=== PATIENT | female | born 1975 | race Caucasian/White ===

== ENCOUNTER 2025-10-08 12:37 | Emergency (ER) | payer OTHER, SELFPAY ==
--- NOTE | ~2025-10-08 | XR_ITS ---
Examination: XR knee LT min 4V Clinical History: HIT IN PROX TIBIA, ANT AND POST PAIN Comparison: None Technique: 4 views right knee Findings/impression: 1. Probable enthesophyte or degenerative change anterior upper tibia but recommend correlation for point tenderness. 2. Otherwise no fracture, dislocation, or effusion right knee. Reviewed, dictated and finalized at location R. [employer]
[2025-10-08 12:45] VITALS: BP 151/80; PULSE 73; RESP 16; TEMP 36.5; O2SAT 100
--- OUTSIDE RECORDS SUMMARY | 2025-10-08 12:48 | XMS_ITS | Clinical Summary ---
Author Organization [facility] Address [address] [place] [address] Phone Care Team Providers Care Medical Accounting Clerk Name Role Phone JCARLOS NOLAN DO Rhona Primary Care Provider [phone] Reason for Visit and Chief Complaint The Chief Complaint is: PT C/O COUGH, SOB, DIFFICULTY BREATHING, MUSCLE/BODY ACHES, HEADACHE, SORE THROAT, VOMITING, RT EAR PAIN Problems Includes: Problems addressed during this encounter and other active Problems Current Visit Onset Date Resolved Date Provider Conditio n Status Pharyngitis Acute 12/22/2017 NICHOL MONTERROSO MD Inactive Last Documented On 9 8:56PM ; [facility] Pharyngitis Acute 08/10/2016 NICHOL MONTERROSO MD Inactive Last Documented On 8 7:39PM ; [facility] Asthma Severe Persistent with Exacerbation 04/25/2016 NICHOL MONTERROSO MD Active Last Documented On 6 1:02PM ; [facility] Past Visits Onset Date Resolved Date Provider Condition Status Chronic Kidney Disease Stage 3 06/10/2023 ELIO JOY [employer]C Active Last Documented On 3 4:43PM ; [facility] Hypokalemia 10/02/2022 MARCY RETANA PA-C A ctive Last Documented On 2 11:30PM ; [facility] Polycystic Kidney 03/15/2022 MARCY RETANA PA-C Active Last Documented On 2 5:32PM ; [facility] Essential Hypertension Benign 06/04/2018 NICHOL MONTERROSO MD Active Last Documented On 8 12:02PM ; [facility] Allergic Rhinitis 04/25/2016 NICHOL MONTERROSO MD Active Last Documented On 9 8:56PM ; [facility] Plan of Treatment Rapid COVID/FLu/Strep testing was negative. Discussed OTC medications as needed for symptoms. Follow up if symptoms worsen or do not improve. - Last Documented On 08/14/2023 3:51PM ; [facility] Assessments Includes: Assessments from this encounter Findings - Contact with and (Suspected) exposure to COVID-19 [Z20.822 - Contact with and (suspected) exposure to COVID-19] - Last Documented On 08/14/2023 3:51PM ; [facility] - Acute pharyngitis [J02.9 - Acute pharyngitis, unspecified] - Last Documented On 08/14/2023 3:51PM ; [facility] - Severe persistent asthma with exacerbation [J45.51 - Severe persistent asthma with (acute) exacerbation] - Last Documented On 08/14/2023 3:51PM ; [facility] Medical Equipment - Implanted Devices Includes: Current Devices No Medical Equipment Recorded Medications Includes: Medications discussed during this encounter and other current Medications New / Renewed during this visit CHEIKH ROSA on 08/14/2023 Azithromycin 250 MG Oral Tablet Provider: CHEIKH ROSA 5 day supply: 6 tablet, 0 refills Diagnosis: Severe persistent asthma with (acute) exacerbation as directed take 2 tab po qd for 1 day then take 1 tab po qd for 4 days Pharmacy: [facility] ([place]) - [address] [facility], [phone] - Last Documented On 3:54PM By Cheikh ROSA ; [facility] Medrol 4 MG Oral Tablet Therapy Pack Provider: CHEIKH ROSA 6 day supply: 21 tablet, 0 refills Diagnosis: Severe persistent asthma with (acute) exacerbation as directed Pharmacy: [facility] ([place]) - [address] [facility], [phone] - Last Documented On 3 3:54PM By Cheikh ROSA ; [facility] Current Medications (continue as prescribed) hydrOXYzine HCl 10 MG Oral Tablet 06/11/2023 Provide r: ELIO ROSA Diagnosis: One tablet daily Last Documented On 3 9:10AM By Elio ROSA ; [facility] Estarylla 0.25-35 MG-MCG Oral Tablet 06/11/2023 Provider: ELIO ROSA Diagnosis: Encounter for in itial prescription of contraceptive pills TAKE 1 TABLET BY MOUTH DAILY Last Documented On 3 9:10AM By Elio ROSA ; [facility] Montelukast Sodium 10 MG Oral Tablet 06/11/2023 Provider: ELIO ROSA Diagnosis: Severe persisten t asthma with (acute) exacerbation TAKE 1 TABLET BY MOUTH DAILY Last Documented On 3 9:10AM By Elio ROSA ; [facility] amLODIPine Besylate 10 MG Oral Tablet 06/11/2023 Provider: ELIO GAYTANC Diagnosis: Essential (prima ry) hypertension One tablet daily Last Documented On 3 9:10AM By Elio ROSA ; [facility] Trelegy Ellipta 100-62.5-25 MCG/ACT Inhalation Aerosol Powder Breath Activated 06/11/2023 Provider: ELIO Thomas [facility] PRACTITIONER-C Diagnosis: INHALE 1 PUFF BY MOUTH DAILY Last Documented On 3 6:49AM By Elio ROSA ; [facility] Fluticasone Propionate 50 MCG/ACT Nasal Suspension 06/11/2023 Provider: ELIO GAYTANC Diagnosis: Polycystic kidne y, unspecified 1 spray in each notril BID Last Documented On 3 9:10AM By Elio ROSA ; [facility] Biotin Plus Keratin 22586-761 MCG-MG Oral Tablet 06/10 Provider: Diagnosis: OTC Last Documented On 3 4:15PM By Elio ROSA ; [facility] Metoprolol Tartrate 25 MG Oral Tablet 06/10/2023 Provider: ELIO ROSA Diagnosis: Essential (prima ry) hypertension One tablet twice a day Last Documented On 3 4:49PM By Elio ROSA ; [facility] Potassium Chloride ER 20 MEQ Oral Tablet Extended Release 10/30/2022 Provider: MARCY Busby Diagnosis: Essential (prima ry) hypertension TAKE 1 TABLET BY MOUTH TWICE DAILY Last Documented On 2 8:20AM By Marcy Retana PA-C ; [facility] Albuterol Sulfate HFA 108 (90 Base) MCG/ACT Inhalation Aerosol Solution 10/01/2022 Provider: MARCY Busby Diagnosis: Severe persisten t asthma with (acute) exacerbation inhale 1-2 puffs every 4-6 h ours as needed Last Documented On 2 4:59PM By Marcy Retana PA-C ; [facility] [place] 3 1000 MG Oral Capsule 10/01/2022 Provider: Diagnosis: Last Documented On 10/01/2022 3:47PM By GLENN GEE ; [facility] Daily Value Multivitamin Oral Tablet 10/01/2022 Prov ider: Diagnosis: Last Documented On 10/01/2022 3:48PM By GLENN GEE ; [facility] Albuterol Sulfate (2.5 MG/3ML) 0.083% Inhalation Nebulization solution 04/08/2022 Provider: ELIO ROSA Diagnosis: Severe persisten t asthma with (acute) exacerbation USE 1 VIAL VIA NEBULIZER CHAYITO RY 4 HOURS NEEDED Last Documented On 2 8:14AM By Elio ROSA ; [facility] Medications Administered Includes: Administered Medications from this encounter No Administered Medications Recorded Vital Signs Includes: Vital Signs from this encounter Vital Name 08/14/2023 03:39P Blood Pressure Sitting L 142/106 BP Cuff Size Regular Pulse Rate-Sitting (bpm) 92 Respiration Rate (breaths/min) 21 Temp-Oral (F) 98.7 Height (in) 64 Weight (lb) 130.8 Body Mass Index 22.5 Body Surface Area 1.6 Oxygen Saturation (%) 98 Last Documented: On 08/14/2023 3:40PM ; [facility] Results Includes: Results discussed during this encounter Group A strep [facility] Ordered by CHEIKH Roca [facility] on 1 Collected: Reported: 08/14/2023 15:41 Last Documented On 3 3:43PM ; [facility] Reviewed on 08/14/2023; All test results are final unless otherwise noted. Rapid Strep NEG N (Normal) Last Documented On 3 3:42PM ; [facility] LOT # AND EXP. DATE [id number] 11/12/25 N (Normal) Last Documented On 3 3:42PM ; [facility] INT. QC ACCEPTABLE? YES N (Normal) Last Documented On 3 3:42PM ; [facility] SARS COVID-19 FLU A & B [facility] Ordered by CHEIKH Roca [facility] on 1 Collected: Reported: 08/14/2023 15:42 Last Documented On 3 3:43PM ; [facility] Reviewed on 08/14/2023; All test results are final unless otherwise noted. COVID NEG N (Normal) Last Documented On 3 3:42PM ; [facility] INFLUENZA A NEG (Negative) N (Normal) Last Documented On 3 3:42PM ; [facility] INFLUENZA B NEG (negative) N (Normal) Last Documented On 3 3:42PM ; [facility] INT. QC ACCEPTABLE? YES N (Normal) Last Documented On 3 3:42PM ; [facility] [employer] [facility] LOT # & EXP. DATE [id number] 08/27/24 N (Normal) Last Documented On 3 3:42PM ; [facility] History of Present Illness Includes: History of Present Illness from this encounter RANDOLPH CARTER is a 47 year old female. - Allergy list reviewed - Medication list reviewed - Feeling tired - Feeling poorly (malaise) - Fever - Chills - Headache - No eye symptoms - Earache - Nasal discharge - Postnasal drip - Nasal passage blockage (stuffiness) - Sore throat - No chest pain or discomfort - No chest tightness or heavy pressure - Feeling congested in the chest - Dyspnea during exertion - Cough - Wheezing - Vomiting - Normal appetite - No nausea - No abdominal pain - No diarrhea - Myalgia - No taste decreased Deborah is here with congestion, sore throat, vomiting, cough, and shortness of breath- started a few days ago and is feeling worse with asthma flared up. Social History Description Last Updated Tobacco non-user 08/14/2023 Last Documented On 3 3:51PM ; [facility] Smoking Status Unknown Procedures and Surgical History Includes: Procedures from this encounter Procedures Code Diagnosis Performing Provider Service L ocation Service Date Discussed with pt / family to observe for signs and symptoms of respiratory distress including the following: shortness of breath, increased respiratory rate, wheezing, difficulty breathing, sternal notch/intercostal retractions, and/or accessory muscle use during respiration. Pt / family to call our office to update patient's status if above changes are noted or worsen Last Documented On 3 3:47PM ; [facility] use of tobacco assessment performed 1000F Last Documented On 3 3:39PM ; [facility] Medical History Includes: Medical History addressed during this encounter No Medical History Recorded Family History Includes: Family History addressed during this encounter No Family History Recorded Review of Systems Includes: Review of Systems from this encounter Systemic: Fatigue and fever. Head: Headache. Otolaryngeal: Earache, nasal discharge, and sore throat. Cardiovascular: No chest pain or discomfort. Pulmonary: No dyspnea. Cough and wheezing. Gastrointestinal: Vomiting. No abdominal pain and no diarrhea. Musculoskeletal: Muscle aches. Neurological: No Loss of taste or smell. Skin: No skin symptoms. Mental Status Includes: Mental Status from this encounter Description Oriented to time, place, and person Functional Status Includes: Functional Status from this encounter No Functional Status Recorded Physical Exam Includes: Physical Exam from this encounter Allergies Includes: Active Allergies Substance Type Reaction Onset Date Resolved Date Statu s Pneumococcal Vaccines Allergy Hives / Ur ticaria, Diarrhea / Diarrheal disorder, Shortness of Breath / Dyspnea, throat swelling 09/23/2019 Active Last Documented On 3 3:38PM ; [facility] Penicillins Allergy Skin Rashes / Er uption of skin, Hives / Urticaria 02/08/2016 Active Last Documented On 3 3:38PM ; [facility] MUSHROOMS Allergy Shortness of Tori ath / Dyspnea 10/01/2022 Active Last Documented On 08/14/2023 3:38PM ; [facility] Note: throat swelling Levaquin Allergy Asthma / Allergi c asthma, Shortness of Breath / Dyspnea 04/25/2016 Active Last Documented On 08/14/2023 3:38PM ; [facility] Note: HEART RHYTHM IRREGULAR Darvocet-N 100 Allergy Skin Rashes / Eruption of skin, Hives / Urticaria 02/16/2016 Active Last Documented On 3 3:38PM ; [facility] Encounters Encounter Provider Location Date Check-In Time Check-Out Time Diagnosis COVID SICK VISIT- ESTABLISHED PATIENT CHEIKHBETTE MAGANA-Pb [facility] 08/14/20 3:00PM 3:46PM Contact with and (Suspected) Exposure To Covid-19,Asth ma Severe Persistent with Exacerbation, Pharyngitis Acute Insurance Includes: Active Insurance Policies Plan Name Member ID Group # Subscriber Relationship Effect chani Dates 1 - [facility] [id number] DEBORAH CARTER Self Clinical Notes Includes: Clinical Notes from this encounter * Progress note Date Encounter Last Documented by 08/14/2023 COVID SICK VISIT- ESTABLISHED PA LEONARD Last documented on 08/14/2023; 3:51 PM, CHEIKHChanelle MAGANA-Pb; [facility] Active Problems & Conditions - J30.9 - Allergic Rhinitis - J45.51 - Asthma Severe Persistent with Exacerbation - N18.30 - Chronic Kidney Disease Stage 3 - I10 - Essential Hypertension Benign - E87.6 - Hypokalemia - Q61.3 - Polycystic Kidney Chief Complaint The Chief Complaint is: PT C/O COUGH, SOB, DIFFICULTY BREATHING, MUSCLE/BODY ACHES, HEADACHE, SORE THROAT, VOMITING, RT EAR PAIN. History of Present Illness DEBORAH CARTER is a 47 year old female. - Allergy list reviewed - Medication list reviewed - Feeling tired - Feeling poorly (malaise) - Fever - Chills - Headache - No eye symptoms - Earache - Nasal discharge - Postnasal drip - Nasal passage blockage (stuffiness) - Sore throat - No chest pain or discomfort - No chest tightness or heavy pressure - Feeling congested in the chest - Dyspnea during exertion - Cough - Wheezing - Vomiting - Normal appetite - No nausea - No abdominal pain - No diarrhea - Myalgia - No taste decreased Deborah is here with congestion, sore throat, vomiting, cough, and shortness of breath- started a few days ago and is feeling worse with asthma flared up. Current Medication - Albuterol Sulfate (2.5 MG/3ML) 0.083% Inhalation Nebulization solution USE 1 VIAL VIA NEBULIZER EVERY 4 HOURS NEEDED, 30 days, 2 refills - Albuterol Sulfate HFA 108 (90 Base) MCG/ACT Inhalation Aerosol Solution inhale 1-2 puffs every 4-6 hours as needed, 30 days, 5 refills - amLODIPine Besylate 10 MG Oral Tablet One tablet daily, 90 days, 3 refills - Biotin Plus Keratin 52641-055 MCG-MG Oral Tablet One tablet daily OTC, 0 days, 0 refills - Daily Value Multivitamin Oral Tablet 0 days, 0 refills - Estarylla 0.25-35 MG-MCG Oral Tablet TAKE 1 TABLET BY MOUTH DAILY, 84 days, 3 refills - Fluticasone Propionate 50 MCG/ACT Nasal Suspension 1 spray in each notril BID, 30 days, 11 refills - hydrOXYzine HCl 10 MG Oral Tablet One tablet daily, 90 days, 3 refills - Metoprolol Tartrate 25 MG Oral Tablet One tablet twice a day, 90 days, 1 refills - Montelukast Sodium 10 MG Oral Tablet TAKE 1 TABLET BY MOUTH DAILY, 90 days, 3 refills - [place] 3 1000 MG Oral Capsule 0 days, 0 refills - Potassium Chloride ER 20 MEQ Oral Tablet Extended Release TAKE 1 TABLET BY MOUTH TWICE DAILY, 30 days, 2 refills - Trelegy Ellipta 100-62.5-25 MCG/ACT Inhalation Aerosol Powder Breath Activated INHALE 1 PUFF BY MOUTH DAILY, 30 days, 5 refills Social History Tobacco use: Tobacco non-user. Allergies - Darvocet-N 100 Reaction: , Hives / Urticaria - Levaquin Reaction: , Shortness of Breath / Dyspnea - MUSHROOMS Reaction: Shortness of Breath / Dyspnea - Penicillins Reaction: , Hives / Urticaria - Pneumococcal Vaccines Reaction: Shortness of Breath / Dyspnea, Diarrhea / Diarrheal disorder, Hives / Urticaria, throat swelling Review Of Systems Systemic: Fatigue and fever. Head: Headache. Otolaryngeal: Earache, nasal discharge, and sore throat. Cardiovascular: No chest pain or discomfort. Pulmonary: No dyspnea. Cough and wheezing. Gastrointestinal: Vomiting. No abdominal pain and no diarrhea. Musculoskeletal: Muscle aches. Neurological: No Loss of taste or smell. Skin: No skin symptoms. Physical Findings - Vitals taken 08/14/2023 03:39 pm BP-Sitting L 142/106 mmHg BP Cuff Size Regular Pulse Rate-Sitting 92 bpm Respiration Rate 21 per min Temp-Oral 98.7 F Height 64 in Weight 130 lbs 12.8 oz Body Mass Index 22.5 kg/m2 Body Surface Area 1.6 m2 Oxygen Saturation 98 % General Appearance: - Awake. - Alert. - Well developed. - Well nourished. - Well hydrated. - In no acute distress. Eyes: General/bilateral: Pupils: - PERRLA. Ears: Right Ear: External Auditory Canal: - Normal. Tympanic Membrane: - Normal. - Not erythematous. Left Ear: External Auditory Canal: - Normal. Tympanic Membrane: - Normal. - Not erythematous. Nose: General/bilateral: Discharge: - No nasal discharge. Sinus Tenderness: - No sinus tenderness. Pharynx: Oropharynx: - Tonsils showed no abnormalities. - Tonsils were not erythematous. - Tonsils were not enlarged. - Tonsils showed no exudate. Lymph Nodes: - Normal. Lungs: - Expiratory wheezing was heard. - No rhonchi were heard. - No rales/crackles were heard. Cardiovascular: Heart Rate And Rhythm: - Normal. Murmurs: - No murmurs were heard. Abdomen: Auscultation: - Bowel sounds were normal. Palpation: - Abdomen was soft. - Abdominal non-tender. - No direct tenderness in the abdomen. Neurological: - Oriented to time, place, and person. Gait And Stance: - Normal. Tests - Test: Group A strep Report Date: 08/14/2023 Rapid Strep NEG Normal LOT # AND EXP. DATE [id number] 11/12/25 Normal INT. QC ACCEPTABLE? YES Normal - Test: SARS COVID-19 FLU A & B Report Date: 08/14/2023 COVID NEG Normal INFLUENZA A NEG Normal INFLUENZA B NEG Normal INT. QC ACCEPTABLE? YES Normal LOT # & EXP. DATE [id number] 08/27/24 Normal Assessment - Contact with and (Suspected) exposure to COVID-19 [Z20.822 - Contact with and (suspected) exposure to COVID-19] - Acute pharyngitis [J02.9 - Acute pharyngitis, unspecified] - Severe persistent asthma with exacerbation [J45.51 - Severe persistent asthma with (acute) exacerbation] Therapy Discussed with pt / family to observe for signs and symptoms of respiratory distress including the following: shortness of breath, increased respiratory rate, wheezing, difficulty breathing, sternal notch/intercostal retractions, and/or accessory muscle use during respiration. Pt / family to call our office to update patient's status if above changes are noted or worsen. Plan StartCited - Acute pharyngitis, unspecified In office procedures/*[facility]: Rapid Strep Test EndCited StartCited - CONTACT WITH AND (SUSPECTED) EXPOSURE TO COVID-19 In office procedures/*[facility]: SARS COVID-19 + flu A & B test EndCited StartCited - Severe persistent asthma with (acute) exacerbation Azithromycin 250 MG tablet as directed take 2 tab po qd for 1 day then take 1 tab po qd for 4 days, 5 days, 0 refills Medrol 4 MG tablet as directed, 6 days, 0 refills EndCited Rapid COVID/FLu/Strep testing was negative. Discussed OTC medications as needed for symptoms. Follow up if symptoms worsen or do not improve. Practice Management Use of tobacco assessment performed. Health Reminders - Assess Blood Pressure satisfied 08/14/2023. - Assess BMI satisfied 08/14/2023. - Assess Tobacco Use satisfied 08/14/2023.
--- OUTSIDE RECORDS SUMMARY | 2025-10-08 12:48 | XMS_ITS | Clinical Summary ---
Author Organization [facility] Address [address] [place] [address] Phone Care Team Providers Care Screen Printer Name Role Phone JCARLOS NOLAN DO Rhona Primary Care Provider Reason for Visit and Chief Complaint The Chief Complaint is: General check up. Pt states that she started having leg pains after being on the higher BP med. She hurt her right leg yesterday as well Problems Includes: Problems addressed during this encounter and other active Problems Current Visit Onset Date Resolved Date Provider Conditio n Status Hypokalemia 10/02/2022 MARCY RETANA PA-C A ctive Last Documented On 2 11:30PM ; [facility] Polycystic Kidney 03/15/2022 MARCY RETANA PA-C Active Last Documented On 2 5:32PM ; [facility] Essential Hypertension Benign 06/04/2018 NICHOL MONTERROSO MD Active Last Documented On 8 12:02PM ; [facility] Allergic Rhinitis 04/25/2016 NICHOL MONTERROSO MD Active Last Documented On 9 8:56PM ; [facility] Asthma Severe Persistent with Exacerbation 04/25/2016 NICHOL MONTERROSO MD Active Last Documented On 6 1:02PM ; [facility] Past Visits Onset Date Resolved Date Provider Condition Status Chronic Kidney Disease Stage 3 06/10/2023 ELIO JOY RISK INTERN-C Active Last Documented On 3 4:43PM ; [facility] Plan of Treatment Strongly encouraged nephrology referral - patient declines. Continue current meds. Discussed elevated BP - needs better control. Patient states related to stress. Discussed cardiovascular is #1 cause of and needs controlled - declines further medication. Keep BP log at home. RTC 1 month - patient states she will f/u with [facility] - Last Documented On 04/17/2023 9:35AM ; [facility] Instructions to patient Intervention and counseling on cessation of tobacco use Last Documented On 3 4:30PM ; [facility] Assessments Includes: Assessments from this encounter Findings - [J30.9 - Allergic rhinitis, unspecified] Allergic rhinitis - Last Documented On 04/17/2023 9:35AM ; [facility] - [I10 - Essential (primary) hypertension] Benign essential hypertension - Last Documented On 04/17/2023 9:35AM ; [facility] - [J45.51 - Severe persistent asthma with (acute) exacerbation] Severe persistent asthma with exacerbation - Last Documented On 04/17/2023 9:35AM ; [facility] - [Q61.3 - Polycystic kidney, unspecified] Polycystic kidney - Last Documented On 04/17/2023 9:35AM ; [facility] - [E87.6 - Hypokalemia] Hypokalemia - Last Documented On 04/17/2023 9:35AM ; [facility] Instructions Includes: Instructions from this encounter Instructions to patient Intervention and counseling on cessation of tobacco use Last Documented On 3 4:30PM ; [facility] Medical Equipment - Implanted Devices Includes: Current Devices No Medical Equipment Recorded Medications Includes: Medications discussed during this encounter and other current Medications Discontinued / Stopped on this date ELIO MAGANA-BC on 01/29/2023 Zithromax Z-Jigar 250 MG Oral Tablet Provider: ELIO MARTIN Diagnosis: Acute maxillary sinusitis, unspecified Last Documented On 04/16/2023 4:25PM By Kristin GEE ; [facility] Zithromax Z-Jigar 250 MG Oral Tablet Provider: ELIO MAGANA -BC Diagnosis: Streptococcal ph aryngitis Last Documented On 04/16/2023 4:29PM By Kristin GEE ; [facility] Trelegy Ellipta 100-62.5-25 MCG/INH Inhalation Aerosol Powder Breath Activated Provider: MARCY Busby Diagnosis: Acute bronchitis , unspecified Last Documented On 04/16/2023 4:25PM By Kristin GEE ; [facility] Current Medications (continue as prescribed) Azithromycin 250 MG Oral Tablet 08/14/2023 Provider: CHEIKH ROSA Diagnosis: Severe persisten t asthma with (acute) exacerbation as directed take 2 tab po qd for 1 day then take 1 tab po qd for 4 days Last Documented On 3 3:54PM By Cheikh ROSA ; [facility] Medrol 4 MG Oral Tablet Therapy Pack 08/14/2023 Provider: CHEIKH ROSA Diagnosis: Severe persisten t asthma with (acute) exacerbation as directed Last Documented On 3 3:54PM By Cheikh ROSA ; [facility] hydrOXYzine HCl 10 MG Oral Tablet 06/11/2023 Provide r: ELIO ROSA Diagnosis: One tablet daily Last Documented On 3 9:10AM By Elio ROSA ; [facility] Estarylla 0.25-35 MG-MCG Oral Tablet 06/11/2023 Provider: ELIO ROSA Diagnosis: Encounter for in itial prescription of contraceptive pills TAKE 1 TABLET BY MOUTH DAILY Last Documented On 3 9:10AM By Elio ROSA ; [facility] Montelukast Sodium 10 MG Oral Tablet 06/11/2023 Provider: ELIO ROSA Diagnosis: Severe persisten t asthma with (acute) exacerbation TAKE 1 TABLET BY MOUTH DAILY Last Documented On 3 9:10AM By Elio ROSA ; [facility] amLODIPine Besylate 10 MG Oral Tablet 06/11/2023 Provider: ELIO ROSA Diagnosis: Essential (prima ry) hypertension One tablet daily Last Documented On 3 9:10AM By Elio ROSA ; [facility] Trelegy Ellipta 100-62.5-25 MCG/ACT Inhalation Aerosol Powder Breath Activated 06/11/2023 Provider: ELIO MCWILLIAMSC Diagnosis: INHALE 1 PUFF BY MOUTH DAILY Last Documented On 3 6:49AM By Elio ROSA ; [facility] Fluticasone Propionate 50 MCG/ACT Nasal Suspension 06/11/2023 Provider: ELIO GAYTANC Diagnosis: Polycystic kidne y, unspecified 1 spray in each notril BID Last Documented On 3 9:10AM By Elio ROSA ; [facility] Biotin Plus Keratin 65257-598 MCG-MG Oral Tablet 06/10 Provider: Diagnosis: OTC Last Documented On 3 4:15PM By Elio ROSA ; [facility] Metoprolol Tartrate 25 MG Oral Tablet 06/10/2023 Provider: ELOI RSOA Diagnosis: Essential (prima ry) hypertension One tablet twice a day Last Documented On 3 4:49PM By Elio ROSA ; [facility] Potassium Chloride ER 20 MEQ Oral Tablet Extended Release 10/30/2022 Provider: MARCY Busby Diagnosis: Essential (prima ry) hypertension TAKE 1 TABLET BY MOUTH TWICE DAILY Last Documented On 2 8:20AM By Marcy Retana PA-C ; [facility] Albuterol Sulfate HFA 108 (90 Base) MCG/ACT Inhalation Aerosol Solution 10/01/2022 Provider: MARCY Busby Diagnosis: Severe persisten t asthma with (acute) exacerbation inhale 1-2 puffs every 4-6 h ours as needed Last Documented On 2 4:59PM By Marcy Retana PA-C ; [facility] [place] 3 1000 MG Oral Capsule 10/01/2022 Provider: Diagnosis: Last Documented On 10/01/2022 3:47PM By GLENN GEE ; [facility] Daily Value Multivitamin Oral Tablet 10/01/2022 Prov ider: Diagnosis: Last Documented On 10/01/2022 3:48PM By GLENN GEE ; [facility] Albuterol Sulfate (2.5 MG/3ML) 0.083% Inhalation Nebulization solution 04/08/2022 Provider: ELIO ROSA Diagnosis: Severe persisten t asthma with (acute) exacerbation USE 1 VIAL VIA NEBULIZER CHAYITO RY 4 HOURS NEEDED Last Documented On 2 8:14AM By Elio ROSA ; [facility] Medications Administered Includes: Administered Medications from this encounter No Administered Medications Recorded Vital Signs Includes: Vital Signs from this encounter Vital Name 04/16/2023 04:12P Blood Pressure Sitting R 152/100 Pulse Rate-Sitting (bpm) 102 Respiration Rate (breaths/min) 18 Height (in) 64 Weight (lb) 129 Body Mass Index 22.1 Body Surface Area 1.6 Oxygen Saturation (%) 99 Last Documented: On 04/16/2023 4:25PM ; [facility] Results Includes: Results discussed during this encounter No Results Recorded For Specified Dates History of Present Illness Includes: History of Present Illness from this encounter RANDOLPH CARTER is a 47 year old female. - Allergy list reviewed - Medication list reviewed - No systemic symptoms - No head symptoms - No otolaryngeal symptoms - No cardiovascular symptoms - No pulmonary symptoms - No gastrointestinal symptoms - No genitourinary symptoms - No musculoskeletal symptoms - No psychological symptoms Patient in clinic for check up. States that from here on out she wants to see Elio ( wanting to transfer as well). BP is elevated. She does not check BP at home. Taking amlodipine daily. Patient states elevated BP is due to stress.. you try working 10 hours a day 6 days a week. She continues to take potassium. Had critical low level in September which has improved. Patient only wants labs that are absolutely necessary due to cost. Discussed checking CMP for kidney and potassium but she wants to wait to discuss with Elio. Patient's kidney function has decreased. She also has polycystic kidney disease. Saw analytical data scientist in the past in [place] but states he was a quack and refusing another referral. She states she is not having any symptoms related to kidney failure and will not do dialysis. Patient needing refill of flonase. Refusing mammogram. Normal cologuard. Social History Description Last Updated Tobacco non-user 08/14/2023 Last Documented On 3 4:12PM ; 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 Brook ves in [place] with and son 06/01/2020 Last Documented On 3 4:12PM ; [facility] Non-smoker 06/01/2020 Last Documented On 3 4:12PM ; [facility] Diet: regular ~Exercise none 12/03/2017 Last Documented On 3 4:12PM ; [facility] Smoking Status Unknown Procedures and Surgical History Includes: Procedures from this encounter Procedures Code Diagnosis Performing Provider Service L ocation Service Date intervention and counseling on cessation of tobacco use 4000F Last Documented On 3 4:30PM ; [facility] use of tobacco assessment performed 1000F Last Documented On 3 4:30PM ; [facility] review of medications documented 1160F Last Documented On 3 4:30PM ; [facility] Medical History Includes: Medical History addressed during this encounter Description Last Updated Taking OTC pain medication / fever. Lorenza alvares Motrin 10/09/2022 Last Documented On 3 4:12PM ; [facility] A fall 10/09/2022 Last Documented On 3 4:12PM ; [facility] Taking OTC medications 09/18/2021 Last Documented On 3 4:12PM ; [facility] Taking medication - prescription 020 Last Documented On 3 4:12PM ; [facility] Allergies: penicillin, propo xyphene ~Surgeries : 2 , knee facture age 13, ~Illnesses: Poly-cystic kidney disease, COPD 02/17/2016 Last Documented On 3 4:12PM ; [facility] Family History Includes: Family History addressed during this encounter Description Last Updated Family history reviewed - unchanged sinc e last visit 10/07/2020 Last Documented On 3 4:12PM ; [facility] Family history [use for free text] 12/03 Last Documented On 3 4:12PM ; [facility] Review of Systems Includes: Review of Systems from this encounter Systemic: No fever, no chills, and no recent weight change. Head: No headache and no sinus pain. Neck: No neck pain. Otolaryngeal: No earache, no nasal discharge, and no sore throat. Cardiovascular: No chest pain or discomfort and no palpitations. Pulmonary: No dyspnea and no cough. Gastrointestinal: No nausea, no vomiting, no abdominal pain, and no melena. No diarrhea. Musculoskeletal: No localized joint pain. Neurological: No dizziness. Psychological: No anxiety and no depression. Mental Status Includes: Mental Status from this encounter Description No anxiety Functional Status Includes: Functional Status from this encounter No Functional Status Recorded Physical Exam Includes: Physical Exam from this encounter Allergies Includes: Active Allergies Substance Type Reaction Onset Date Resolved Date Statu s Pneumococcal Vaccines Allergy Hives / Ur ticaria, Diarrhea / Diarrheal disorder, Shortness of Breath / Dyspnea, throat swelling 09/23/2019 Active Last Documented On 3 3:38PM ; [facility] Penicillins Allergy Skin Rashes / Er uption of skin, Hives / Urticaria 02/08/2016 Active Last Documented On 3 3:38PM ; [facility] MUSHROOMS Allergy Shortness of Tori ath / Dyspnea 10/01/2022 Active Last Documented On 08/14/2023 3:38PM ; [facility] Note: throat swelling Levaquin Allergy Asthma / Allergi c asthma, Shortness of Breath / Dyspnea 04/25/2016 Active Last Documented On 08/14/2023 3:38PM ; [facility] Note: HEART RHYTHM IRREGULAR Darvocet-N 100 Allergy Skin Rashes / Eruption of skin, Hives / Urticaria 02/16/2016 Active Last Documented On 3 3:38PM ; [facility] Encounters Encounter Provider Location Date Check-In Time Check-Out Time Diagnosis CHECK UP MARCY RETANA PA-C [facility]- 04/16/20 23 4:07PM 4:50PM Essential Hypertension Benign,Hypokalem ia,Polycystic Kidney,Allergic Rhinitis,Asthma Severe Persistent with Exacerbation Insurance Includes: Active Insurance Policies Plan Name Member ID Group # Subscriber Relationship Effect chani Dates 1 - [facility] [id number] BOB CARTER Self Clinical Notes Includes: Clinical Notes from this encounter * Progress note Date Encounter Last Documented by 04/16/2023 CHECK UP Last documented on 04/17/2023; 9:35 AM, MARCY RETANA PA-C; [facility] Active Problems & Conditions - J30.9 - Allergic Rhinitis - J45.51 - Asthma Severe Persistent with Exacerbation - I10 - Essential Hypertension Benign - E87.6 - Hypokalemia - Q61.3 - Polycystic Kidney Chief Complaint The Chief Complaint is: General check up. Pt states that she started having leg pains after being on the higher BP med. She hurt her right leg yesterday as well. History of Present Illness BOB CARTER is a 47 year old female. - Allergy list reviewed - Medication list reviewed - No systemic symptoms - No head symptoms - No otolaryngeal symptoms - No cardiovascular symptoms - No pulmonary symptoms - No gastrointestinal symptoms - No genitourinary symptoms - No musculoskeletal symptoms - No psychological symptoms Patient in clinic for check up. States that from here on out she wants to see Elio ( wanting to transfer as well). BP is elevated. She does not check BP at home. Taking amlodipine daily. Patient states elevated BP is due to stress.. you try working 10 hours a day 6 days a week. She continues to take potassium. Had critical low level in September which has improved. Patient only wants labs that are absolutely necessary due to cost. Discussed checking CMP for kidney and potassium but she wants to wait to discuss with Elio. Patient's kidney function has decreased. She also has polycystic kidney disease. Saw analytical data scientist in the past in [place] but states he was a quack and refusing another referral. She states she is not having any symptoms related to kidney failure and will not do dialysis. Patient needing refill of flonase. Refusing mammogram. Normal cologuard. Current Medication - Albuterol Sulfate (2.5 MG/3ML) 0.083% Inhalation Nebulization solution USE 1 VIAL VIA NEBULIZER EVERY 4 HOURS NEEDED, 30 days, 2 refills - Albuterol Sulfate HFA 108 (90 Base) MCG/ACT Inhalation Aerosol Solution inhale 1-2 puffs every 4-6 hours as needed, 30 days, 5 refills - amLODIPine Besylate 10 MG Oral Tablet TAKE 1 TABLET BY MOUTH DAILY, 30 days, 0 refills - Daily Value Multivitamin Oral Tablet 0 days, 0 refills - Estarylla 0.25-35 MG-MCG Oral Tablet TAKE 1 TABLET BY MOUTH DAILY, 84 days, 3 refills - hydrOXYzine HCl 10 MG Oral Tablet 1 tab TID PRN, 30 days, 5 refills - Montelukast Sodium 10 MG Oral Tablet TAKE 1 TABLET BY MOUTH DAILY. MAKE APPOINTMENT, 30 days, 0 refills - [place] 3 1000 MG Oral Capsule 0 days, 0 refills - Potassium Chloride ER 20 MEQ Oral Tablet Extended Release TAKE 1 TABLET BY MOUTH TWICE DAILY, 30 days, 2 refills Past Medical/Surgical History Reported: Medications: Taking - prescription, medication for pain [id number] / fever. Using Motrin, and tnge-szk-delwcdo medications. Physical Trauma: A fall. Allergies: penicillin, propoxyphene Surgeries : 2 , knee facture age 13, Illnesses: Poly-cystic kidney disease, COPD. Social History Tobacco use: Tobacco non-user and non-smoker. Alcohol: Not recovering alcoholic. Drug Use: Not recovering from substance abuse. 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 Marital: Marital history - 2 children. Lives in [place] with and son. Diet: regular Exercise none. Allergies - Darvocet-N 100 Reaction: , Hives / Urticaria - Levaquin Reaction: , Shortness of Breath / Dyspnea - MUSHROOMS Reaction: Shortness of Breath / Dyspnea - Penicillins Reaction: , Hives / Urticaria - Pneumococcal Vaccines Reaction: Shortness of Breath / Dyspnea, Diarrhea / Diarrheal disorder, Hives / Urticaria, throat swelling Family History Family history reviewed - unchanged since last visit family history [use for free text] Review Of Systems Systemic: No fever, no chills, and no recent weight change. Head: No headache and no sinus pain. Neck: No neck pain. Otolaryngeal: No earache, no nasal discharge, and no sore throat. Cardiovascular: No chest pain or discomfort and no palpitations. Pulmonary: No dyspnea and no cough. Gastrointestinal: No nausea, no vomiting, no abdominal pain, and no melena. No diarrhea. Musculoskeletal: No localized joint pain. Neurological: No dizziness. Psychological: No anxiety and no depression. Physical Findings - Vitals taken 04/16/2023 04:12 pm BP-Sitting R 152/100 mmHg Pulse Rate-Sitting 102 bpm Respiration Rate 18 per min Height 64 in Weight 129 lbs Body Mass Index 22.1 kg/m2 Body Surface Area 1.6 m2 Oxygen Saturation 99 % General Appearance: - Well developed. - Well nourished. - In no acute distress. Ears: General/bilateral: External Auditory Canal: - External auditory meatus normal. Tympanic Membrane: - Normal. Nose: General/bilateral: Discharge: - No nasal discharge. Sinus Tenderness: - No sinus tenderness. Pharynx: Oropharynx: - Normal. - Tonsils showed no abnormalities. Lungs: - Normal breath sounds/voice sounds. - No wheezing was heard. Cardiovascular: Heart Rate And Rhythm: - Normal. Murmurs: - No murmurs were heard. Abdomen: Auscultation: - Bowel sounds were normal. Palpation: - Abdominal non-tender. Assessment - [J30.9 - Allergic rhinitis, unspecified] Allergic rhinitis - [I10 - Essential (primary) hypertension] Benign essential hypertension - [J45.51 - Severe persistent asthma with (acute) exacerbation] Severe persistent asthma with exacerbation - [Q61.3 - Polycystic kidney, unspecified] Polycystic kidney - [E87.6 - Hypokalemia] Hypokalemia Therapy - Intervention and counseling on cessation of tobacco use. Plan StartCited - Allergic rhinitis, unspecified Flonase Allergy Relief 50 MCG/ACT mL 1 spray in each notril once daily, 30 days, 1 refills EndCited StartCited - Essential (primary) hypertension amLODIPine Besylate 10 MG tablet TAKE 1 TABLET BY MOUTH DAILY, 30 days, 1 refills EndCited Strongly encouraged nephrology referral - patient declines. Continue current meds. Discussed elevated BP - needs better control. Patient states related to stress. Discussed cardiovascular is #1 cause of and needs controlled - declines further medication. Keep BP log at home. RTC 1 month - patient states she will f/u with [facility] Use of tobacco assessment performed Review of medications documented. Health Reminders - Assess Blood Pressure satisfied 04/16/2023. - Assess BMI satisfied 04/16/2023. - Assess Tobacco Use satisfied 04/16/2023.
--- OUTSIDE RECORDS SUMMARY | 2025-10-08 12:48 | XMS_ITS | Clinical Summary ---
Author Organization [facility] Facility Address [address] [place] [id number] Care Team Providers Care Manager Laundry Name Role Phone Nissa Ewing DO Primary Care Provider Unava ilable Allergies Active Allergy Reactions Criticality Noted Date Comments Fluconazole Hives 07/19/2023 Levofloxacin Other (see comments) High 07/19/2023 Chest Pain (Severe) Mushroom Extract Complex (Obsolete) Other (see comments) High 07/19/2023 Facial Swelling (Severe) Medications albuterol (2.5 MG/3ML) 0.083% nebulizer solution Take 2.5 mg by nebulization every 6 (six) hours if needed Active albuterol HFA (PROVENTIL HFA;VENTOLIN HFA) 108 (90 Base) MCG/ACT inhaler Inhale 2 puffs every 6 (six) hours if needed Active budesonide (PULMICORT) 0.5 MG/2ML nebulizer solution Take 0.5 mg by nebulization 1 (one) time each day Rinse mouth with water after use to reduce aftertaste and incidence of candidiasis. Do not swallow. Active norgestimate-et hinyl estradiol (ORTHO-CYCLEN) 0.25-35 MG-MCG per tablet Take 1 tablet by mouth 1 (one) time each day Active montelukast (SINGULAIR) 10 MG tablet Take 10 mg by mouth every night Active losartan (COZAAR) 25 MG tablet Take 25 mg by mouth 1 (one) time each day Active metoprolol succinate XL (TOPROL XL) 50 MG 24 hr tablet Take 50 mg by mouth 1 (one) time each day Do not crush or chew. Active Potassium 99 MG tablet Take by mouth 1 (one) time each day Active magnesium, as gluconate, (MAGONATE) 500 (27 Mg) MG tablet Take 27 mg by mouth in the morning and 27 mg in the evening. Active cyancobalamine (VITAMIN B-12) 500 MCG tablet Take 500 mcg by mouth 1 (one) time each day Active Multiple Vitamins-Minera ls (multivitamin with minerals) tablet Take 1 tablet by mouth 1 (one) time each day Active Flaxseed, Linseed, (Flaxseed Oil) 1200 MG capsule Take by mouth 1 (one) time each day Active cyclobenzaprine (FLEXERIL) 10 MG tablet Take 10 mg by mouth 3 (three) times a day if needed for muscle spasms Active acetaminophen-c odeine (TYLENOL with CODEINE #4) 300-60 MG per tablet Take 1 tablet by mouth every 4 (four) hours if needed for moderate pain Active Active Problems No known active problems Family History Medical History Relation Comments Kidney disease Father Hypertension Mother Asthma Paternal Grandfather Relation Status Comments Father Mother Paternal Grandfather Social History Tobacco Use Types Packs/Day Years Used Date Smoking Tobacco: Former Cigarettes 0 Q uit: 2011 Smokeless Tobacco: Never Tobacco Cessation:Counseling Given: Not Answered Alcohol Use Standard Drinks/Week Comments Yes 0 (1 standard drink = 0.6 oz pur e alcohol) Occasional Comments Unknown Sex and Gender Information Value Date Recorded Sex Assigned at Not on file Legal Sex Female 1:02 PM EDT Gender Identity Not on file Sexual Orientation Not on file Last Filed Vital Signs Vital Sign Reading Time Taken Comments Blood Pressure 145/89 10/15/2023 11:56 AM HAND SHAPER Pulse 81 10/15/2023 11:56 AM HAND SHAPER Temperature 36.4 C (97.6 F) 10/15/2023 11:56 AM HAND SHAPER Respiratory Rate - - Oxygen Saturation 100% 10/15/2023 11:56 AM HAND SHAPER Inhaled Oxygen Concentration - - Weight 62.1 kg (137 lb) 10/15/2023 11:56 AM HAND SHAPER Height 160 cm (5' 3) 10/15/2023 11:56 AM HAND SHAPER Body Mass Index 24.27 10/15/2023 11:56 AM HAND SHAPER Plan of Treatment Health Maintenance Due Date Last Done Comments Breast Cancer Screening 1974 Hepatitis B Vaccine (1 of 3 - 19+ 3-dose series) 1993 Colorectal Cancer Screening: Annual FOBT 2023 Colorectal Cancer Screening: Colonoscopy 2023 Colorectal Cancer Screening: Sigmoidoscopy 2023 Pneumococcal Vaccine: 50+ Ye ars (3 of 3 - PCV20 or PCV21) 08/17/2024 08/17/2019, 10/23/2017 Influenza Vaccine (#1) 2025 3, 07/28/2022, 09/07/2021, Additional history exists Pneumococcal Vaccine: Peds ( 0 to 5 Years) and At-Risk Patients (6 to 49 Years) Discontinued 08/17/2019, 10/23/2017 Insurance [facility] Care Teams Manager Laundry Relationship Specialty Start Date End Date Nissa Ewing DO [address] [place] [id number] PCP - General Dental [facility] Presser 07/19/23
--- OUTSIDE RECORDS SUMMARY | 2025-10-08 12:48 | XMS_ITS | Clinical Summary ---
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 JOY LEARNING PROGRAM MANAGER-C Active Last Documented On 3 4:43PM ; [facility] Hypokalemia 10/02/2022 MARCY RETANA PA-C A ctive Last Documented On 2 11:30PM ; [facility] Polycystic Kidney 03/15/2022 MARCY RETANA PA-C Active Last Documented On 2 5:32PM ; [facility] Essential Hypertension Benign 06/04/2018 NICHOL MONTERROSO MD Active Last Documented On 8 12:02PM ; [facility] Allergic Rhinitis 04/25/2016 NICHOL MONTERROSO MD Active Last Documented On 9 8:56PM ; [facility] Asthma Severe Persistent with Exacerbation 04/25/2016 NICHOL MONTERROSO MD Active Last Documented On 6 1:02PM ; [facility] Plan of Treatment No Plan of Treatment Recorded Assessments Includes: Assessments from this encounter Findings - [J06.9 - Acute upper respiratory infection, unspecified] Viral upper respiratory infection - Last Documented On 01/27/2023 3:02PM ; [facility] Medical Equipment - Implanted Devices Includes: Current Devices No Medical Equipment Recorded Medications Includes: Medications discussed during this encounter and other current Medications Current Medications (continue as prescribed) Azithromycin 250 MG Oral Tablet 08/14/2023 Provider: CHEIKH ROSA Diagnosis: Severe persisten t asthma with (acute) exacerbation as directed take 2 tab po qd for 1 day then take 1 tab po qd for 4 days Last Documented On 3 3:54PM By Cheikh ROSA ; [facility] Medrol 4 MG Oral Tablet Therapy Pack 08/14/2023 Provider: CHEIKH ROSA Diagnosis: Severe persisten t asthma with (acute) exacerbation as directed Last Documented On 3 3:54PM By Cheikh ROSA ; [facility] hydrOXYzine HCl 10 MG Oral Tablet 06/11/2023 Provide r: ELIO ROSA Diagnosis: One tablet daily Last Documented On 3 9:10AM By Elio ROSA ; [facility] Estarylla 0.25-35 MG-MCG Oral Tablet 06/11/2023 Provider: ELIO ROSA Diagnosis: Encounter for in itial prescription of contraceptive pills TAKE 1 TABLET BY MOUTH DAILY Last Documented On 3 9:10AM By Elio ROSA ; [facility] Montelukast Sodium 10 MG Oral Tablet 06/11/2023 Provider: ELIO ROSA Diagnosis: Severe persisten t asthma with (acute) exacerbation TAKE 1 TABLET BY MOUTH DAILY Last Documented On 3 9:10AM By Elio ROSA ; [facility] amLODIPine Besylate 10 MG Oral Tablet 06/11/2023 Provider: ELIO ROSA Diagnosis: Essential (prima ry) hypertension One tablet daily Last Documented On 3 9:10AM By Elio ROSA ; [facility] Trelegy Ellipta 100-62.5-25 MCG/ACT Inhalation Aerosol Powder Breath Activated 06/11/2023 Provider: ELIO Thomas NP-C Diagnosis: INHALE 1 PUFF BY MOUTH DAILY Last Documented On 3 6:49AM By Elio ROSA ; [facility] Fluticasone Propionate 50 MCG/ACT Nasal Suspension 06/11/2023 Provider: ELIO ROSA Diagnosis: Polycystic kidne y, unspecified 1 spray in each notril BID Last Documented On 3 9:10AM By Elio ROSA ; [facility] Biotin Plus Keratin 24152-773 MCG-MG Oral Tablet 06/10 Provider: Diagnosis: OTC Last Documented On 3 4:15PM By Elio ROSA ; [facility] Metoprolol Tartrate 25 MG Oral Tablet 06/10/2023 Provider: ELIO ROSA Diagnosis: Essential (prima ry) hypertension One tablet twice a day Last Documented On 3 4:49PM By Elio ROSA ; [facility] Potassium Chloride ER 20 MEQ Oral Tablet Extended Release 10/30/2022 Provider: MARCY Busby Diagnosis: Essential (prima ry) hypertension TAKE 1 TABLET BY MOUTH TWICE DAILY Last Documented On 2 8:20AM By Marcy Retana PA-C ; [facility] Albuterol Sulfate HFA 108 (90 Base) MCG/ACT Inhalation Aerosol Solution 10/01/2022 Provider: MARCY Busby Diagnosis: Severe persisten t asthma with (acute) exacerbation inhale 1-2 puffs every 4-6 h ours as needed Last Documented On 2 4:59PM By Marcy Retana PA-C ; [facility] Compton 3 1000 MG Oral Capsule 10/01/2022 Provider: Diagnosis: Last Documented On 10/01/2022 3:47PM By GLENN GEE ; [facility] Daily Value Multivitamin Oral Tablet 10/01/2022 Prov ider: Diagnosis: Last Documented On 10/01/2022 3:48PM By GLENN GEE ; [facility] Albuterol Sulfate (2.5 MG/3ML) 0.083% Inhalation Nebulization solution 04/08/2022 Provider: ELIO ROSA Diagnosis: Severe persisten t asthma with (acute) exacerbation USE 1 VIAL VIA NEBULIZER CHAYITO RY 4 HOURS NEEDED Last Documented On 2 8:14AM By Elio ROSA ; [facility] Medications Administered Includes: Administered Medications from this encounter No Administered Medications Recorded Vital Signs Includes: Vital Signs from this encounter Vital Name 01/27/2023 11:48A Blood Pressure Sitting L 128/88 Pulse Rate-Sitting (bpm) 61 Respiration Rate (breaths/min) 20 Temp-Oral (F) 99.2 Height (in) 64 Weight (lb) 129.2 Body Mass Index 22.2 Body Surface Area 1.6 Oxygen Saturation (%) 96 Last Documented: On 01/27/2023 12:49P M ; [facility] Results Includes: Results discussed during this encounter SARS COVID-19 FLU A & B [facility] Ordered by [facility] on 01/27/2023 Collected: Reported: 01/27/2023 11:57 Last Documented On 3 12:59PM ; [facility] Reviewed on 01/27/2023; All test results are final unless otherwise noted. COVID NEGATIVE N (Normal) Last Documented On 3 12:57PM ; [facility] INFLUENZA A NEGATIVE (Negative) N (Normal) Last Documented On 3 12:57PM ; [facility] INFLUENZA B NEGATIVE (negative) N (Normal) Last Documented On 3 12:57PM ; [facility] INT. QC ACCEPTABLE? YES N (Normal) Last Documented On 3 12:57PM ; [facility] LOT # & EXP. DATE [id number] 01/16/24 N (Normal) Last Documented On 3 12:57PM ; [facility] History of Present Illness Includes: History of Present Illness from this encounter RANDOLPH CARTER is a 47 year old female. - Allergy list reviewed - Medication list reviewed - Headache - No facial pain - No sinus pain - No neck pain - No swollen glands in the neck - No eye symptoms - Ear symptoms - Nasal discharge - Postnasal drip - Nasal passage blockage (stuffiness) - The right ear does not feel pressured - Not on the left - No purulent nasal discharge - No sneezing - No nasal itching - No sore throat - No chest pain or discomfort - Dyspnea consistent with her chronic asthma, but not worse than her normal - Cough - No wheezing - No nausea - No vomiting - No abdominal pain - No diarrhea - No skin symptoms Social History Description Last Updated Work history 04/17/2023 Last Documented On 3 12:48PM ; [facility] Current smoker 01/27/2023 Last Documented On 3 3:02PM ; [facility] No travel 09/30/2021 Last Documented On 3 12:48PM ; [facility] Marital history - 2 children. [place] in [place] with and son 06/01/2020 Last Documented On 3 12:48PM ; [facility] Non-smoker 06/01/2020 Last Documented On 3 12:48PM ; [facility] Smoking status : Never smoker 12/09/2019 Last Documented On 3 12:48PM ; [facility] Diet: regular ~Exercise none 12/03/2017 Last Documented On 3 12:48PM ; [facility] No tobacco use --- ex-smoker 12/03/2017 Last Documented On 3 12:48PM ; [facility] Not using alcohol 12/03/2017 Last Documented On 3 12:48PM ; [facility] Not using drugs 12/03/2017 Last Documented On 3 12:48PM ; [facility] Good exercise habits 09/22/2016 Last Documented On 3 12:48PM ; [facility] No caffeine use 09/22/2016 Last Documented On 3 12:48PM ; [facility] No family problems 09/22/2016 Last Documented On 3 12:48PM ; [facility] No interpersonal problems 09/22/2016 Last Documented On 3 12:48PM ; [facility] No job change 09/22/2016 Last Documented On 3 12:48PM ; [facility] No physical disability 09/22/2016 Last Documented On 3 12:48PM ; [facility] No recent financial changes 09/22/2016 Last Documented On 3 12:48PM ; [facility] No recent legal problems 09/22/2016 Last Documented On 3 12:48PM ; [facility] No work-related circumstances 09/22/2016 Last Documented On 3 12:48PM ; [facility] Procedures and Surgical History Includes: Procedures from this encounter Procedures Code Diagnosis Performing Provider Service L ocation Service Date use of tobacco assessment performed 1000F Last Documented On 3 12:48PM ; [facility] review of medications documented 1160F Last Documented On 3 2:54PM ; [facility] Medical History Includes: Medical History addressed during this encounter Description Last Updated Taking OTC pain medication / fever. Lorenza alvares Motrin 10/09/2022 Last Documented On 3 12:48PM ; [facility] A fall 10/09/2022 Last Documented On 3 12:48PM ; [facility] No Contact with and (Suspected) exposure to COVID-19 10/09/2022 Last Documented On 3 12:48PM ; [facility] No exposure to a contagious disease 09/12 Last Documented On 3 12:48PM ; [facility] Taking OTC medications 09/18/2021 Last Documented On 3 12:48PM ; [facility] Taking medication - prescription 020 Last Documented On 3 12:48PM ; [facility] Denies a fear of falling. 12/09/2019 Last Documented On 3 12:48PM ; [facility] Has had no fall in the last 12 months. 0 12/09/2019 Last Documented On 3 12:48PM ; [facility] No contact with poison bridgette 10/30/2019 Last Documented On 3 12:48PM ; [facility] No exposure to chemical liquids 10/30/20 19 Last Documented On 3 12:48PM ; [facility] No secondhand tobacco smoke in home 10/12 Last Documented On 3 12:48PM ; [facility] Not using a new laundry product 10/30/20 Last Documented On 3 12:48PM ; [facility] Not using a new skin care product 2018 Last Documented On 3 12:48PM ; [facility] Pt does not get blood pressure checked a t other facility 10/30/2019 Last Documented On 3 12:48PM ; [facility] Allergies: penicillin, propo xyphene ~Surgeries : 2 , knee facture age 13, ~Illnesses: Poly-cystic kidney disease, COPD 02/17/2016 Last Documented On 3 12:48PM ; [facility] Family History Includes: Family History addressed during this encounter Description Last Updated Family history reviewed - [facility] e last visit 10/07/2020 Last Documented On 3 12:48PM ; [facility] Family history [use for free text] 12/03 Last Documented On 3 12:48PM ; [facility] Mother in good health and denies signifi cant illness 12/03/2017 Last Documented On 3 12:48PM ; [facility] Father in good health and denies signifi cant illness 12/03/2017 Last Documented On 3 12:48PM ; [facility] Review of Systems Includes: Review of Systems from this encounter Systemic: No fever, no chills, and no night sweats. Mental Status Includes: Mental Status from this encounter No Mental Status Recorded Functional Status Includes: Functional Status from this encounter No Functional Status Recorded Physical Exam Includes: Physical Exam from this encounter Allergies Includes: Active Allergies Substance Type Reaction Onset Date Resolved Date Statu s Pneumococcal Vaccines Allergy Hives / Ur ticaria, Diarrhea / Diarrheal disorder, Shortness of Breath / Dyspnea, throat swelling 09/23/2019 Active Last Documented On 3 3:38PM ; [facility] Penicillins Allergy Skin Rashes / Er uption of skin, Hives / Urticaria 02/08/2016 Active Last Documented On 3 3:38PM ; [facility] MUSHROOMS Allergy Shortness of Tori ath / Dyspnea 10/01/2022 Active Last Documented On 08/14/2023 3:38PM ; [facility] Note: throat swelling Levaquin Allergy Asthma / Allergi c asthma, Shortness of Breath / Dyspnea 04/25/2016 Active Last Documented On 08/14/2023 3:38PM ; [facility] Note: HEART RHYTHM IRREGULAR Darvocet-N 100 Allergy Skin Rashes / Eruption of skin, Hives / Urticaria 02/16/2016 Active Last Documented On 3 3:38PM ; [facility] Encounters Encounter Provider Location Date Check-In Time Check-Out Time Diagnosis COVID SICK VISIT- ESTABLISHED PATIENT HEATHER MAGANA,[facility] 023 12:13PM 1:17PM Upper Respiratory Infection Viral Insurance Includes: Active Insurance Policies Plan Name Member ID Group # Subscriber Relationship Effect chani Dates 1 - [facility] [id number] BOB CARTER Self Clinical Notes Includes: Clinical Notes from this encounter * Progress note Date Encounter Last Documented by 01/27/2023 COVID SICK VISIT- ESTABLISHED PA TIENT Last documented on 01/27/2023; 3:02 PM, Emma MAGANA-; [facility] Active Problems & Conditions - Allergic Rhinitis - Asthma Severe Persistent with Exacerbation - Essential Hypertension Benign - Hypokalemia - Polycystic Kidney Chief Complaint The Chief Complaint is: PT C/O HEADACHE AND BODY ACHES. History of Present Illness BOB CARTER is a 47 year old female. - Allergy list reviewed - Medication list reviewed - Headache - No facial pain - No sinus pain - No neck pain - No swollen glands in the neck - No eye symptoms - Ear symptoms - Nasal discharge - Postnasal drip - Nasal passage blockage (stuffiness) - The right ear does not feel pressured - Not on the left - No purulent nasal discharge - No sneezing - No nasal itching - No sore throat - No chest pain or discomfort - Dyspnea consistent with her chronic asthma, but not worse than her normal - Cough - No wheezing - No nausea - No vomiting - No abdominal pain - No diarrhea - No skin symptoms Current Medication - Albuterol Sulfate (2.5 MG/3ML) 0.083% Inhalation Nebulization solution USE 1 VIAL VIA NEBULIZER EVERY 4 HOURS NEEDED, 30 days, 2 refills - Albuterol Sulfate HFA 108 (90 Base) MCG/ACT Inhalation Aerosol Solution inhale 1-2 puffs every 4-6 hours as needed, 30 days, 5 refills - amLODIPine Besylate 10 MG Oral Tablet One tablet daily, 30 days, 2 refills - Daily Value Multivitamin Oral Tablet 0 days, 0 refills - Estarylla 0.25-35 MG-MCG Oral Tablet TAKE 1 TABLET BY MOUTH DAILY, 84 days, 3 refills - hydrOXYzine HCl 10 MG Oral Tablet 1 tab TID PRN, 30 days, 5 refills - Montelukast Sodium 10 MG Oral Tablet TAKE 1 TABLET BY MOUTH DAILY -MAKE APPT, 30 days, 5 refills - Compton 3 1000 MG Oral Capsule 0 days, 0 refills - Potassium Chloride ER 20 MEQ Oral Tablet Extended Release TAKE 1 TABLET BY MOUTH TWICE DAILY, 30 days, 2 refills - Trelegy Ellipta 100-62.5-25 MCG/INH Inhalation Aerosol Powder Breath Activated 1 inhalation daily, 28 days, 11 refills - Zithromax Z-Jigar 250 MG Oral Tablet as directed, 5 days, 0 refills Past Medical/Surgical History Reported: Recent Events: Pt does not get blood pressure checked at other facility. Medications: Taking - prescription, medication for pain [id number] / fever. Using Motrin, and grlj-tyw-zgteyhn medications. Exposure: No exposure to a contagious disease and not Contact with and (Suspected) exposure to COVID-19. Environmental Exposure: No exposure to chemical liquids and no secondhand tobacco smoke in home. Not using a new skin care product and not a new laundry product. No contact with poison bridgette. Physical Trauma: A fall. Has had no fall in the last 12 months. and Denies a fear of falling. Allergies: penicillin, propoxyphene Surgeries : 2 , knee facture age 13, Illnesses: Poly-cystic kidney disease, COPD. Social History Personal: No interpersonal problems, no family problems, and no work-related circumstances. No job change, no recent financial changes, and no recent legal problems. Caffeine use: No caffeine use. Tobacco use: No tobacco use --- ex-smoker. Current smoker and non-smoker. Smoking status: Never smoker. Alcohol: Not using alcohol. Drug Use: Not using drugs. Habits: Good exercise habits. Work: Work history. Marital: Marital history - 2 children. Lives in [place] with and son. Travel: No travel. Functional: No physical disability. Diet: regular Exercise none. Allergies - Darvocet-N 100 Reaction: , Hives / Urticaria - Levaquin Reaction: , Shortness of Breath / Dyspnea - MUSHROOMS Reaction: Shortness of Breath / Dyspnea - Penicillins Reaction: , Hives / Urticaria - Pneumococcal Vaccines Reaction: Shortness of Breath / Dyspnea, Diarrhea / Diarrheal disorder, Hives / Urticaria, throat swelling Family History Father in good health and denies significant illness Mother in good health and denies significant illness Family history reviewed - unchanged since last visit family history [use for free text] Review Of Systems Systemic: No fever, no chills, and no night sweats. Physical Findings - Vitals taken 01/27/2023 11:48 am BP-Sitting L 128/88 mmHg Pulse Rate-Sitting 61 bpm Respiration Rate 20 per min Temp-Oral 99.2 F Height 64 in Weight 129 lbs 3.2 oz Body Mass Index 22.2 kg/m2 Body Surface Area 1.6 m2 Oxygen Saturation 96 % General Appearance: - Well-appearing. - Alert. - Well developed. - Well nourished. - In no acute distress. Ears: Right Ear: Tympanic Membrane: - Examined air/fluid level present. Left Ear: Tympanic Membrane: - Examined air/fluid level present. Nose: General/bilateral: Discharge: - No nasal discharge. Sinus Tenderness: - No sinus tenderness. Pharynx: Oropharynx: - Soft palate was normal. Mucosal: - Pharynx showed no accumulation of mucous. Lymph Nodes: - Normal. Lungs: - Lung auscultation revealed abnormalities rales that cleared with cough. no coughing during exam except when given verbal command to cough. Cardiovascular: Heart Rate And Rhythm: - Normal. Skin: - Mucous membranes were not dry. Tests - Test: SARS COVID-19 FLU A & B Report Date: 01/27/2023 COVID NEGATIVE Normal INFLUENZA A NEGATIVE Normal INFLUENZA B NEGATIVE Normal INT. QC ACCEPTABLE? YES Normal LOT # & EXP. DATE [id number] 01/16/24 Normal Assessment - [J06.9 - Acute upper respiratory infection, unspecified] Viral upper respiratory infection Counseling/Education - Clinical summary provided to patient patient agreed to plan of care Antibiotics are not effective against viral illnesses. Take Tylenol or Ibuprofen as needed for general discomfort, achiness, or fever. Antihistamine as needed- such as Zyrtec, Claritin, or benadryl Encouraged vitamin C and Zinc to help boost immune system Cool liquids to soothe the throat, throat sprays, throat lozenges, cool liquids to help soothe the throat Normal saline nasal spray may help loosen congestion Flonase nasal spray may help to relieve your nasal congestion. Robitussin or Mucinex are available over the counter and may also help with your symptoms. Hot tea, brothy soups, and saline nasal spray will help to decrease your congestion. Ice chips, popsicles, lozenges, and chloraseptic spray may help with your sore throat. Use a vaporizer at night. Steamy showers may help with congestion. Rest and drink plenty of fluids. Call or return to this clinic, or follow-up with primary care provider if symptoms do not improve in 7-10 days, or if they worsen during this time. To the ER or call 911 for signs of difficulty breathing, lethargy, or blue discoloration of the lips or nails. Plan StartCited - Acute cough In office procedures/*Clia Waived Labs: SARS COVID-19 + flu A & B test EndCited Practice Management Use of tobacco assessment performed Review of medications documented. Health Reminders - Assess Blood Pressure satisfied 01/27/2023. - Assess BMI satisfied 01/27/2023. - Assess Tobacco Use satisfied 01/27/2023.
--- OUTSIDE RECORDS SUMMARY | 2025-10-08 12:48 | XMS_ITS ---
Author Organization [facility] Address [address] [place] [address] Phone Care Team Providers Care Jamb Cutter Name Role Phone AN MONTANEZ JCARLOS Melgoza Primary Care Provider [phone] Problems Includes: Active, inactive, and resolved Problems All Visits Onset Date Resolved Date Provider Condition S tatus Chronic Kidney Disease Stage 3 06/10/2023 ELIO Amada [facility] Active Last Documented On 3 4:43PM ; [facility] Hypokalemia 10/02/2022 MARCY RETANA PA-C A ctive Last Documented On 2 11:30PM ; [facility] Polycystic Kidney 03/15/2022 MARCY GUTIERREZ-C Active Last Documented On 2 5:32PM ; [facility] Coronavirus Covid-19 Infection 10/07/2020 MARCY GUTIERREZ-C Inactive Last Documented On 2 11:30PM ; [facility] Note: 09/19 diagnosed. Chest pain, unspecified 12/20/2019 MARCY CANNON PA-C Inactive Last Documented On 2 11:31PM ; [facility] Encounter for initial prescr iption of contraceptive pills 09/14/2019 ELIO JOY [facility] [place] ctive Last Documented On 0 8:46AM ; [facility] Adverse Effect of Vaccine Bacterial Pneumococcal 08/23/2019 10/07/2020 ELIO Amada [facility] Resolved Last Documented On 0 8:46AM ; [facility] Severe persistent asthma wit h (acute) exacerbation 07/06/2018 NICHOL MONTERROSO MD Inactive Last Documented On 9 8:56PM ; [facility] Essential Hypertension Benign 06/04/2018 NICHOL MONTERROSO MD Active Last Documented On 8 12:02PM ; [facility] Pharyngitis Acute 12/22/2017 NICHOL MONTERROSO MD Inactive Last Documented On 9 8:56PM ; [facility] Closed Fracture of Metatarsal Third Right 11/29/2016 NICHOL MONTERROSO MD Inactive Last Documented On 8 7:39PM ; [facility] Pharyngitis Acute 08/10/2016 NICHOL MONTERROSO MD Inactive Last Documented On 8 7:39PM ; [facility] Acute Bronchitis 04/25/2016 NICHOL Santiago Inactive Last Documented On 8 7:39PM ; [facility] Allergic Rhinitis 04/25/2016 NICHOL MONTERROSO MD Active Last Documented On 9 8:56PM ; [facility] Asthma Severe Persistent with Exacerbation 04/25/2016 NICHOL MONTERROSO MD Active Last Documented On 6 1:02PM ; [facility] Plan of Treatment Findings Encounter Date Ordered follow-up visit as n eeded with an office visit if symptoms persist or worsen COVID SICK VISIT- ESTABLISHED PATIENT with ELIO NARAYAN [facility] 10/09/2022 Last Documented On 2 5:18PM ; [facility] Ordered patient to call if p roblem develops COVID SICK VISIT- ESTABLISHED PATIENT with ELIO NARAYAN [facility] 10/09/2022 Last Documented On 2 5:18PM ; [facility] Ordered return to the clinic if condition worsens or new symptoms arise COVID SICK VISIT- ESTABLISHED PATIENT with ELIO NARAYAN [facility] 10/09/2022 Last Documented On 2 5:18PM ; [facility] Go to the emergency room if condition worsens WALK IN PATIENT - ESTABLISHED PT with ELIO NARAYAN [facility] 06/22/2022 Last Documented On 2 7:49PM ; [facility] Ordered follow-up visit as n eeded with an office visit. WALK IN PATIENT - ESTABLISHED PT with ELIO NARAYAN [facility] 06/22/2022 Last Documented On 2 7:49PM ; [facility] Ordered return to the clinic if condition worsens or new symptoms arise WALK IN PATIENT - ESTABLISHED PT with ELIO NARAYAN [facility] 06/22/2022 Last Documented On 2 7:49PM ; [facility] Ordered follow-up visit in 1 -2 weeks with an office visit or sooner if symptoms persist or worsen COVID SICK VISIT- ESTABLISHED PATIENT with ELIO NARAYAN [facility] 01/07/2022 Last Documented On 2 1:02PM ; [facility] Ordered patient to call if p roblem develops COVID SICK VISIT- ESTABLISHED PATIENT with ELIO NARAYAN [facility] 01/07/2022 Last Documented On 2 1:02PM ; [facility] Ordered return to the clinic if condition worsens or new symptoms arise COVID SICK VISIT- ESTABLISHED PATIENT with ELIO NARAYAN [facility] 01/07/2022 Last Documented On 2 1:02PM ; [facility] Ordered follow-up visit as n eeded with an office visit if symptoms persist or worsen COVID SICK VISIT- ESTABLISHED PATIENT with CHEIKH Roca [facility] DIRECT[facility]-C 12/31/2021 Last Documented On 2 3:00PM ; [facility] Ordered patient to call if p roblem develops COVID SICK VISIT- ESTABLISHED PATIENT with CHEIKH Roca [facility]C 12/31/2021 Last Documented On 2 3:00PM ; [facility] Ordered return to the clinic if condition worsens or new symptoms arise COVID SICK VISIT- ESTABLISHED PATIENT with CHEIKH N [facility]C 12/31/2021 Last Documented On 2 3:00PM ; [facility] Continue current medication COVID SICK V ISIT- ESTABLISHED PATIENT with KIKA PURVIS [facility] 09/30/2021 Last Documented On 1 8:35AM ; [facility] The options include close observation CO VID SICK VISIT- ESTABLISHED PATIENT with KIKA PURVIS [facility]C 09/30/2021 Last Documented On 1 8:35AM ; [facility] Continue current medication COVID SICK V ISIT- ESTABLISHED PATIENT with MORRIS BERNARDO [facility] 09/18/2021 Last Documented On 1 1:15PM ; [facility] The options include close observation CO VID SICK VISIT- ESTABLISHED PATIENT with MORRIS BERNARDO [facility]C 09/18/2021 Last Documented On 1 1:15PM ; [facility] Ordered follow-up visit 3 month CHECK UP with JAZMIN MONTERROSO MD 05/30/2021 Last Documented On 1 1:48PM ; [facility] Ordered return to the clinic if condition worsens or new symptoms arise CHECK UP with NICHOL MONTERROSO MD 05/30/2021 Last Documented On 1 1:48PM ; [facility] PLAN [Use for s.o.a.p. note free text] CHECK UP with NICHOL MONTERROSO MD 05/30/2021 Last Documented On 1 1:48PM ; [facility] Ordered follow-up visit in 1 -2 weeks with an office visit or sooner if symptoms persist or worsen COVID SICK VISIT- ESTABLISHED PATIENT with ELIO Mack [facility] DIRECT[facility]-BC 05/11/2021 Last Documented On 1 2:24PM ; [facility] Ordered patient to call if p roblem develops COVID SICK VISIT- ESTABLISHED PATIENT with ELIO Mack [facility]ENE [facility] DIRECT[facility]-BC 05/11/2021 Last Documented On 1 2:24PM ; [facility] Ordered return to the clinic if condition worsens or new symptoms arise COVID SICK VISIT- ESTABLISHED PATIENT with ELIO Mack [facility]ENE [facility] DIRECT[facility]-BC 05/11/2021 Last Documented On 1 2:24PM ; [facility] Clinical summary provided to patient SIC K VISIT with ELIO JOY [facility]C 09/19/2020 Last Documented On 0 4:39PM ; [facility] Plan of care reviewed and agreed to SICK VISIT with ELIO JOY [facility] 09/19/2020 Last Documented On 0 4:39PM ; [facility] The options include close observation [facility] SICK VISIT with MORRIS BERNARDO [facility]C 08/28/2020 Last Documented On 0 2:16PM ; [facility] Watch for signs/symptoms of infection, return to the clinic if seen WALK-IN CLINIC SICK VISIT with MORRIS BERNARDO [facility] 08/28/2020 Last Documented On 0 2:16PM ; [facility] Ordered Clinical summary pro vided to patient . Plan discussed and patient/parent/caregiver states understanding EMERGENCY ROOM FOLLOW UP with AMADO CLAIRE PA-C 06/01/2020 Last Documented On 0 5:01PM ; [facility] Ordered follow-up visit as n eeded with an office visit. Keep area clean and dry. Discuss can be allergic to the neomycin in Neosporin--use a antibiotic ointment without neomycin. Discussed signs of infection--contact office if infection arises. Call sooner if needed EMERGENCY ROOM FOLLOW UP with AMADO CLAIRE PA-C 06/01/2020 Last Documented On 0 5:01PM ; [facility] Pt to use prescription as or dered. Purpose of and use of medication discussed. SICK VISIT with MORRIS BERNARDO [facility] 02/26/2020 Last Documented On 0 2:40PM ; [facility] The options include close observation SI CK VISIT with MORRIS BERNARDO [facility]C 02/26/2020 Last Documented On 0 2:40PM ; [facility] Watch for signs/symptoms of infection, return to the clinic if seen SICK VISIT with MORRIS BERNARDO [facility] 02/26/2020 Last Documented On 0 2:40PM ; [facility] Pt to use prescription as or dered. Purpose of and use of medication discussed. SICK VISIT with MORRISDERIK BERNARDO [facility] DIRECT[facility]-C 02/16/2020 Last Documented On 0 11:32AM ; [facility] The options include close observation SI CK VISIT with MORRIS E TOVA [facility]C 02/16/2020 Last Documented On 0 11:32AM ; [facility] Watch for signs/symptoms of infection, return to the clinic if seen SICK VISIT with MORRIS BERNARDO [facility]C 02/16/2020 Last Documented On 0 11:32AM ; [facility] Ordered follow-up visit 3 months SICK VISIT with NICHOL MONTERROSO MD 12/09/2019 Last Documented On 0 12:51PM ; [facility] Ordered return to the clinic if condition worsens or new symptoms arise SICK VISIT with NICHOL MONTERROSO MD 12/09/2019 Last Documented On 0 12:51PM ; [facility] PLAN [Use for s.o.a.p. note free text] SICK VISIT with NICHOL MONTERROSO MD 12/09/2019 Last Documented On 0 12:51PM ; [facility] Ordered follow-up visit 5-7 days if symptoms persist or worsen WALK-IN CLINIC SICK VISIT with ELIO NARAYAN [facility]- 10/30/2019 Last Documented On 9 2:23PM ; [facility] Ordered return to the clinic if condition worsens or new symptoms arise WALK-IN CLINIC SICK VISIT with ELIO NARAYAN [facility]- 10/30/2019 Last Documented On 9 2:23PM ; [facility] Ordered follow-up visit 3 months 2 WK CK-UP with NICHOL MONTERROSO MD 08/31/2019 Last Documented On 9 1:59PM ; [facility] Ordered return to the clinic if condition worsens or new symptoms arise 2 WK CK-UP with NICHOL MONTERROSO MD 08/31/2019 Last Documented On 9 1:59PM ; [facility] PLAN [Use for s.o.a.p. note free text] 2 WK CK-UP with NICHOL MONTERROSO MD 08/31/2019 Last Documented On 9 1:59PM ; [facility] Ordered follow-up visit 2 weeks MED CHECK with Angélica MONTERROSO MD 08/17/2019 Last Documented On 9 8:58PM ; [facility] Ordered return to the clinic if condition worsens or new symptoms arise MED CHECK with NICHOL MONTERROSO MD 08/17/2019 Last Documented On 9 8:58PM ; [facility] PLAN [Use for s.o.a.p. note free text] MED CHECK with NICHOL MONTERROSO MD 08/17/2019 Last Documented On 9 8:58PM ; [facility] Ordered follow-up visit 3 months 1 MONTH CHECK w ith NICHOL MONTERROSO MD 07/02/2018 Last Documented On 8 6:51PM ; [facility] Ordered return to the clinic if condition worsens or new symptoms arise 1 MONTH CHECK with NICHOL MONTERROSO MD 07/02/2018 Last Documented On 8 6:51PM ; [facility] PLAN [Use for s.o.a.p. note free text] 1 MONTH CHECK with NICHOL MONTERROSO MD 07/02/2018 Last Documented On 8 6:51PM ; [facility] Ordered follow-up visit 1-2 weeks. Patient instructed to go to ER if Peak flow is that low again and she is drowsy PROBLEM VISIT with NICHOL MONTERROSO MD 06/04/2018 Last Documented On 8 12:08PM ; [facility] Ordered return to the clinic if condition worsens or new symptoms arise PROBLEM VISIT with NICHOL MONTERROSO MD 06/04/2018 Last Documented On 8 12:08PM ; [facility] Ordered Transition in care, clinical summary provided PROBLEM VISIT with NICHOL MONTERROSO MD 06/04/2018 Last Documented On 8 12:08PM ; [facility] PLAN [Use for s.o.a.p. note free text] PROBLEM VISIT with NICHOL MONTERROSO MD 06/04/2018 Last Documented On 8 12:08PM ; [facility] Ordered follow-up visit SICK VISIT with NICHOL MONTERROSO MD 12/04/2017 Last Documented On 8 3:58PM ; [facility] Ordered return to the clinic if condition worsens or new symptoms arise SICK VISIT with NICHOL MONTERROSO MD 12/04/2017 Last Documented On 8 3:58PM ; [facility] PLAN [Use for s.o.a.p. note free text] SICK VISIT with NICHOL MONTERROSO MD 12/04/2017 Last Documented On 8 3:58PM ; [facility] Ordered follow-up visit 1 week EMERGENCY ROOM FOLLOW UP with NICHOL MONTERROSO MD 11/29/2016 Last Documented On 7 6:25PM ; [facility] Ordered return to the clinic if condition worsens or new symptoms arise EMERGENCY ROOM FOLLOW UP with NICHOL MONTERROSO MD 11/29/2016 Last Documented On 7 6:25PM ; [facility] PLAN [Use for s.o.a.p. note free text] EMERGENCY ROOM FOLLOW UP with NICHOL MONTERROSO MD 11/29/2016 Last Documented On 7 6:25PM ; [facility] Ordered follow-up visit 2 weeks 3 MONTH CHECK wi NICHOL MONTERROSO MD 08/10/2016 Last Documented On 6 1:03PM ; [facility] Ordered return to the clinic if condition worsens or new symptoms arise 3 MONTH CHECK with NICHOL MONTERROSO MD 08/10/2016 Last Documented On 6 1:03PM ; [facility] PLAN [Use for s.o.a.p. note free text] 3 MONTH CHECK with NICHOL MONTERROSO MD 08/10/2016 Last Documented On 6 1:03PM ; [facility] Ordered follow-up visit 3 months GENERAL OFFICE VISIT with NICHOL MONTERROSO MD 05/10/2016 Last Documented On 6 2:35PM ; [facility] Ordered return to the clinic if condition worsens or new symptoms arise GENERAL OFFICE VISIT with NICHOL MONTERROSO MD 05/10/2016 Last Documented On 6 2:35PM ; [facility] PLAN [Use for s.o.a.p. note free text] GENERAL OFFICE VISIT with NICHOL MONTERROSO MD 05/10/2016 Last Documented On 6 2:35PM ; [facility] Singulair, Albuterol, Breo, prednisone P ROBLEM VISIT with NICHOL MONTERROSO MD 04/25/2016 Last Documented On 6 3:01PM ; [facility] Ordered follow-up visit 1-2 weeks. Go to ER if symptoms worsen PROBLEM VISIT with NICHOL MONTERROSO MD 04/25/2016 Last Documented On 6 3:01PM ; [facility] Ordered return to the clinic if condition worsens or new symptoms arise PROBLEM VISIT with NICHOL MONTERROSO MD 04/25/2016 Last Documented On 6 3:01PM ; [facility] Ordered follow-up visit : 1 week SICK VISIT with NICHOL MONTERROSO MD 02/21/2016 Last Documented On 6 11:53PM ; [facility] Ordered return to the clinic if condition worsens or new symptoms arise SICK VISIT with NICHOL MONTERROSO MD 02/21/2016 Last Documented On 6 11:53PM ; [facility] PLAN [Use for s.o.a.p. note free text] SICK VISIT with NICHOL MONTERROSO MD 02/21/2016 Last Documented On 6 11:53PM ; [facility] Continue medications. Consid er starting Norvasc. Followup in 2-4 weeks HOSPITAL FOLLOW UP EXAM with NICHOL MONTERROSO MD 02/16/2016 Last Documented On 6 12:17AM ; [facility] Ordered follow-up visit HOSPITAL FOLLOW UP EXAM with NICHOL MONTERROSO MD 02/16/2016 Last Documented On 6 12:17AM ; [facility] Ordered return to the clinic if condition worsens or new symptoms arise HOSPITAL FOLLOW UP EXAM with NICHOL MONTERROSO MD 02/16/2016 Last Documented On 6 12:17AM ; [facility] PLAN [Use for s.o.a.p. note free text] HOSPITAL FOLLOW UP EXAM with NICHOL MONTERROSO MD 02/16/2016 Last Documented On 6 12:17AM ; [facility] Referrals To Diagnosis Scenery Builder TAYLOR REYES MD Severe persisten t asthma with (acute) exacerbation Note: severe asthma Last Documented On 9 6:33PM ; [facility] Lining Mechanic FLO SUAZO MD Polycystic kid terry, unspecified Note: Drew Last Documented On 3 11:59AM ; [facility] Scenery Builder TAYLOR REYES MD Severe persisten t asthma with (acute) exacerbation Note: in drew Last Documented On 3 9:37AM ; [facility] Instructions to patient Intervention and counseling on cessation of tobacco use Last Documented On 3 4:30PM ; [facility] Go to the emergency room if condition worsens Last Documented On 2 5:16PM ; [facility] Watch for signs/symptoms of infection Last Documented On 2 5:16PM ; [facility] Watch for signs/symptoms of infection, return to the clinic if seen Last Documented On 2 5:16PM ; [facility] Go to the emergency room if condition worsens Last Documented On 2 7:08PM ; [facility] Watch for signs/symptoms of infection, return to the clinic if seen Last Documented On 2 7:08PM ; [facility] Go to the emergency room if condition worsens Last Documented On 2 12:59PM ; [facility] Watch for signs/symptoms of infection Last Documented On 2 12:59PM ; [facility] Watch for signs/symptoms of infection, return to the clinic if seen Last Documented On 2 12:59PM ; [facility] Return to the clinic if cond ition worsens or new symptoms arise Last Documented On 2 2:55PM ; [facility] Go to the emergency room if condition worsens Last Documented On 2 2:55PM ; [facility] Watch for signs/symptoms of infection Last Documented On 2 2:55PM ; [facility] Watch for signs/symptoms of infection, return to the clinic if seen Last Documented On 2 2:55PM ; [facility] Go to the emergency room if condition worsens Last Documented On 1 2:21PM ; [facility] Watch for signs/symptoms of infection Last Documented On 1 2:21PM ; [facility] Watch for signs/symptoms of infection, return to the clinic if seen Last Documented On 1 2:21PM ; [facility] Watch for signs/symptoms of infection, return to the clinic if seen Last Documented On 0 2:16PM ; [facility] Watch for signs/symptoms of infection, return to the clinic if seen Last Documented On 0 2:38PM ; [facility] Watch for signs/symptoms of infection, return to the clinic if seen Last Documented On 0 11:32AM ; [facility] Education and Decision Aids were provided during visit for: Lifestyle education Last Documented On 2 12:49PM ; [facility] Patient education about anti biotics: need to finish even if feeling better Last Documented On 2 12:59PM ; [facility] Patient education about anti biotics: need to finish even if feeling better Last Documented On 1 2:21PM ; [facility] Severe persistent asthma wit h (acute) exacerbation (Problem) Last Documented On 6 3:46PM ; [facility] Assessments Includes: Assessments for all patient encounters Findings Encounter Date Acute pharyngitis COVID SICK VISIT- ES TABLISHED PATIENT with CHEIKH Roca [facility] 08/14/2023 Last Documented On 3 3:51PM ; [facility] Contact with and (Suspected) exposure to COVID-19 COVID SICK VISIT- ESTABLISHED PATIENT with CHEIKH Roca [facility] 08/14/2023 Last Documented On 3 3:51PM ; [facility] Severe persistent asthma wit h exacerbation COVID SICK VISIT- ESTABLISHED PATIENT with CHEIKH Roca [facility]-C 08/14/2023 Last Documented On 3 3:51PM ; [facility] Benign essential hypertension [facility] 06/10/2023 Last Documented On 3 9:04AM ; [facility] Chronic kidney disease, stage 3 CHECK UP with TANESHA JOY [facility] 06/10/2023 Last Documented On 3 9:04AM ; [facility] Polycystic kidney CHECK UP with ELIO MCLAUGHLIN BRANDON [facility] DIRECT[facility]-C 06/10/2023 Last Documented On 3 9:04AM ; [facility] Severe persistent asthma wit h exacerbation CHECK UP with ELIO Ybarra BENITA [facility] DIRECT[facility] 06/10/2023 Last Documented On 3 9:04AM ; [facility] Allergic rhinitis CHECK UP with MARCY VELA Y PA-C 04/16/2023 Last Documented On 3 9:35AM ; [facility] Benign essential hypertension CHECK UP with CHERYL RETANA PA-C 04/16/2023 Last Documented On 3 9:35AM ; [facility] Hypokalemia CHECK UP with MARCY RETANA PA-C 04/16/2023 Last Documented On 3 9:35AM ; [facility] Polycystic kidney CHECK UP with MARCY Beard PA-C 04/16/2023 Last Documented On 3 9:35AM ; [facility] Severe persistent asthma wit h exacerbation CHECK UP with MARCY BAKERVELY PA-C 04/16/2023 Last Documented On 3 9:35AM ; [facility] Viral upper respiratory infection COVID SICK VISIT- ESTABLISHED PATIENT with [facility] 01/27/2023 Last Documented On 3 3:02PM ; [facility] Group A streptococcus: B hem olytic pharyngitis COVID SICK VISIT- ESTABLISHED PATIENT with ELIO NARAYAN [facility] 10/09/2022 Last Documented On 2 5:18PM ; [facility] Benign essential hypertension CHECK UP with CHERYL RETANA PA-C 10/01/2022 Last Documented On 2 11:33PM ; [facility] Severe persistent asthma wit h exacerbation CHECK UP with MARCYEVERTON BAKERVELY PA-C 10/01/2022 Last Documented On 2 11:33PM ; [facility] [Z20.828 - Contact with and (suspected) exposure to other viral communicable diseases] exposure to SARS COVID SICK VISIT- ESTABLISHED PATIENT with AUDREY NGUYEN CIVIL DRAFTER-FPA, [facility] DIRECT[facility]-BC 09/04/2022 Last Documented On 2 3:40PM ; [facility] Allergic rhinitis COVID SICK VISIT- ES TABLISHED PATIENT with AUDREY NGUYEN CIVIL DRAFTER-FPA, [facility] DIRECTOR-BC 09/04/2022 Last Documented On 2 3:40PM ; [facility] Asthma COVID SICK VISIT- ES TABLISHED PATIENT with AUDREY NGUYEN CIVIL DRAFTER-FPA, [facility] DIRECTOR-BC 09/04/2022 Last Documented On 2 3:40PM ; [facility] Cellulitis of face WALK IN PATIENT - ES TABLISHED PT with ELIO Martina NARAYAN [facility]-BC 06/22/2022 Last Documented On 2 7:49PM ; [facility] Acute pharyngitis COVID SICK VISIT- ES TABLISHED PATIENT with CHEIKH N [facility]IN [facility] DIRECT[facility]-C 05/15/2022 Last Documented On 2 12:20PM ; [facility] [facility] Acute serous otitis media COVID SICK VIS IT- ESTABLISHED PATIENT with CEHIKH N [facility] DIRECT[facility]C 05/15/2022 Last Documented On 2 12:20PM ; [facility] Acute sinusitis COVID SICK VISIT- ES TABLISHED PATIENT with CHEIKH N [facility] DIRECTOR[facility]C 05/15/2022 Last Documented On 2 12:20PM ; [facility] Contact with and (Suspected) exposure to COVID-19 COVID SICK VISIT- ESTABLISHED PATIENT with CHEIKH N [facility] DIRECT[facility]C 05/15/2022 Last Documented On 2 12:20PM ; [facility] Acute bronchitis COVID SICK VISIT- ES TABLISHED PATIENT with CHEIKH N [facility] DIRECTOR-C 05/04/2022 Last Documented On 2 6:35PM ; [facility] Acute pharyngitis COVID SICK VISIT- ES TABLISHED PATIENT with CHEIKH N [facility] DIRECTOR-C 05/04/2022 Last Documented On 2 6:35PM ; [facility] Assessment of cough COVID SICK VISIT- ES TABLISHED PATIENT with CHEIKH CABRERACLAIR [facility] DIRECT[facility]C 05/04/2022 Last Documented On 2 6:35PM ; [facility] Contact with and (Suspected) exposure to COVID-19 COVID SICK VISIT- ESTABLISHED PATIENT with CHEIKH Roca [facility] DIRECT[facility]C 05/04/2022 Last Documented On 2 6:35PM ; [facility] Acute nasopharyngitis COVID SICK VISIT- ESTABLISHED PATIENT with CHEIKH Roca [facility] DIRECT[facility]C 12/31/2021 Last Documented On 2 3:00PM ; [facility] Acute pharyngitis COVID SICK VISIT- ES TABLISHED PATIENT with CHEIKH Roca [facility] DIRECT[facility]C 12/31/2021 Last Documented On 2 3:00PM ; [facility] Assessment of cough COVID SICK VISIT- ES TABLISHED PATIENT with CHEIKH Roca [facility] DIRECT[facility]C 12/31/2021 Last Documented On 2 3:00PM ; [facility] Contact with and (Suspected) exposure to COVID-19 COVID SICK VISIT- ESTABLISHED PATIENT with KIKA PURVIS [facility] DIRECT[facility] 09/30/2021 Last Documented On 1 8:35AM ; [facility] Upper respiratory infection COVID SICK V ISIT- ESTABLISHED PATIENT with KIKA PURVIS [facility] DIRECT[facility]C 09/30/2021 Last Documented On 1 8:35AM ; [facility] Contact with and (Suspected) exposure to COVID-19 COVID SICK VISIT- ESTABLISHED PATIENT with MORRIS BERNARDO [facility] DIRECT[facility]C 09/18/2021 Last Documented On 1 1:15PM ; [facility] Benign essential hypertension EMERGENCY ROOM FOLLOW UP with ELIO JOY [facility] DIRECT[facility]C 10/07/2020 Last Documented On 0 9:37AM ; [facility] Hypokalemia EMERGENCY ROOM FOLLOW UP with TANESHA Ybarra [facility]ITA [facility] DIRECT[facility]C 10/07/2020 Last Documented On 0 9:37AM ; [facility] Severe persistent asthma wit h exacerbation EMERGENCY ROOM FOLLOW UP with ELIO [facility]Y [facility] DIRECT[facility]C 10/07/2020 Last Documented On 0 9:37AM ; [facility] Streptococcal sore throat EMERGENCY ROOM FOLLOW UP with ELIO JOY [facility] DIRECT[facility]C 10/07/2020 Last Documented On 0 9:37AM ; [facility] COVID-19 infection SICK VISIT with ELIO RODRIGUEZ [facility] DIRECT[facility]C 09/19/2020 Last Documented On 0 4:39PM ; [facility] R05 - Cough SICK VISIT with ELIO MCLAUGHLIN RS [facility] DIRECT[facility]-C 09/19/2020 Last Documented On 0 4:39PM ; [facility] Open wound of the left forearm EMERGENCY ROOM FOLLOW UP with AMADO GUTIERREZ-Pb 06/01/2020 Last Documented On 0 5:01PM ; [facility] Arthralgia of the left humerus/elbow [facility] RGENCY ROOM FOLLOW UP with NERISSA CHATMAN [facility] DIRECT[facility]C 03/18/2020 Last Documented On 0 1:19PM ; [facility] Arthralgia of the right humerus/elbow EMERGENCY ROOM FOLLOW UP with NERISSA GALEANO-HULTZ [facility] DIRECT[facility]-C 03/18/2020 Last Documented On 0 1:19PM ; [facility] Severe persistent asthma wit h exacerbation EMERGENCY ROOM FOLLOW UP with NERISSAPIERRE MCCORMICKER-HULTZ [facility] DIRECTOR-C 03/18/2020 Last Documented On 0 1:19PM ; [facility] Acute bronchitis WALK-IN CLINIC SICK VISIT with CHEIKH Roca [facility] DIRECT[facility]C 02/20/2020 Last Documented On 0 2:01PM ; [facility] Acute pharyngitis WALK-IN CLINIC SICK VISIT with CHEIKH N [facility] DIRECTOR-C 02/20/2020 Last Documented On 0 2:01PM ; [facility] Assessment of cough WALK-IN CLINIC SICK VISIT with CHEIKH N [facility] DIRECTOR[facility]C 02/20/2020 Last Documented On 0 2:01PM ; [facility] Allergic rhinitis SICK VISIT with NICHOL DEAN MD 12/09/2019 Last Documented On 0 12:51PM ; [facility] Benign essential hypertension SICK VISIT with JAZMIN MONTERROSO MD 12/09/2019 Last Documented On 0 12:51PM ; [facility] Severe persistent asthma wit h exacerbation SICK VISIT with NICHOL MONTERROSO MD 12/09/2019 Last Documented On 0 12:51PM ; [facility] Acute pharyngitis WALK-IN CLINIC SICK VISIT with CHEIKH ROSA 09/23/2019 Last Documented On 9 10:57AM ; [facility] Upper respiratory infection WALK-IN CLIN IC SICK VISIT with CHEIKH ROSA 09/23/2019 Last Documented On 9 10:57AM ; [facility] Allergic rhinitis PROBLEM VISIT with NICHOL MARCOS MD 08/19/2019 Last Documented On 9 5:15PM ; [facility] Benign essential hypertension PROBLEM VISIT with NICHOL MONTERROSO MD 08/19/2019 Last Documented On 9 5:15PM ; [facility] Pneumococcal vaccine reaction PROBLEM VISIT with NICHOL MONTERROSO MD 08/19/2019 Last Documented On 9 5:15PM ; [facility] Severe persistent asthma wit h exacerbation PROBLEM VISIT with NICHOL MONTERROSO MD 08/19/2019 Last Documented On 9 5:15PM ; [facility] Allergic rhinitis MED CHECK with NICHOL GREEN MD 08/17/2019 Last Documented On 9 8:58PM ; [facility] Benign essential hypertension MED CHECK with THALIA MONTERORSO MD 08/17/2019 Last Documented On 9 8:58PM ; [facility] Severe persistent asthma wit h exacerbation MED CHECK with NICHOL MONTERROSO MD 08/17/2019 Last Documented On 9 8:58PM ; [facility] Benign essential hypertension PROBLEM VISIT with NICHOL MONTERROSO MD 06/04/2018 Last Documented On 8 12:08PM ; [facility] Severe persistent asthma wit h exacerbation PROBLEM VISIT with NICHOL MONTERROSO MD 06/04/2018 Last Documented On 8 12:08PM ; [facility] Acute pharyngitis SICK VISIT with NICHOL DEAN MD 12/04/2017 Last Documented On 8 3:58PM ; [facility] Severe persistent asthma wit h exacerbation SICK VISIT with NICHOL MONTERROSO MD 12/04/2017 Last Documented On 8 3:58PM ; [facility] Right carpal tunnel syndrome PROBLEM VISIT with CHEIKH [facility] DIRECT[facility]C 10/23/2017 Last Documented On 7 4:19PM ; [facility] Severe persistent asthma wit h exacerbation PROBLEM VISIT with CHEIKH [facility] DIRECT[facility]-C 10/23/2017 Last Documented On 7 4:19PM ; [facility] Closed fracture of the third metatarsal of the right foot EMERGENCY ROOM FOLLOW UP with NICHOL MONTERROSO MD 11/29/2016 Last Documented On 7 6:25PM ; [facility] Severe persistent asthma wit h exacerbation EMERGENCY ROOM FOLLOW UP with NICHOL MONTERROSO MD 11/29/2016 Last Documented On 7 6:25PM ; [facility] Acute bronchitis 3 MONTH CHECK with NICHOL CHACON MD 08/10/2016 Last Documented On 6 1:03PM ; [facility] Acute pharyngitis 3 MONTH CHECK with NICHOL MARCOS MD 08/10/2016 Last Documented On 6 1:03PM ; [facility] Severe persistent asthma wit h exacerbation 3 MONTH CHECK with NICHOL MONTERROSO MD 08/10/2016 Last Documented On 6 1:03PM ; [facility] Asthma exacerbation. Allergic rhinitis P ROBLEM VISIT with NICHOL MONTERROSO MD 04/25/2016 Last Documented On 6 3:01PM ; [facility] Asthma exacerbation. Hypertension HOSPIT AL FOLLOW UP EXAM with NICHOL MONTERROSO MD 02/16/2016 Last Documented On 6 12:17AM ; [facility] Acute bronchitis SAME DAY SICK VISIT with JUANJO QUEVEDOP-BC 02/08/2016 Last Documented On 6 2:00PM ; [facility] Discharge diagnosis of PRIMA RY CARE PROVIDER : DR MONTERROSO SAME DAY SICK VISIT with KAY Amada [facility]- 02/08/2016 Last Documented On 6 2:00PM ; [facility] Instructions Includes: Instructions for all patient encounters Instructions to patient Intervention and counseling on cessation of tobacco use Last Documented On 3 4:30PM ; [facility] Go to the emergency room if condition worsens Last Documented On 2 5:16PM ; [facility] Watch for signs/symptoms of infection Last Documented On 2 5:16PM ; [facility] Watch for signs/symptoms of infection, return to the clinic if seen Last Documented On 2 5:16PM ; [facility] Go to the emergency room if condition worsens Last Documented On 2 7:08PM ; [facility] Watch for signs/symptoms of infection, return to the clinic if seen Last Documented On 2 7:08PM ; [facility] Go to the emergency room if condition worsens Last Documented On 2 12:59PM ; [facility] Watch for signs/symptoms of infection Last Documented On 2 12:59PM ; [facility] Watch for signs/symptoms of infection, return to the clinic if seen Last Documented On 2 12:59PM ; [facility] Return to the clinic if cond ition worsens or new symptoms arise Last Documented On 2 2:55PM ; [facility] Go to the emergency room if condition worsens Last Documented On 2 2:55PM ; [facility] Watch for signs/symptoms of infection Last Documented On 2 2:55PM ; [facility] Watch for signs/symptoms of infection, return to the clinic if seen Last Documented On 2 2:55PM ; [facility] Go to the emergency room if condition worsens Last Documented On 1 2:21PM ; [facility] Watch for signs/symptoms of infection Last Documented On 1 2:21PM ; [facility] Watch for signs/symptoms of infection, return to the clinic if seen Last Documented On 1 2:21PM ; [facility] Watch for signs/symptoms of infection, return to the clinic if seen Last Documented On 0 2:16PM ; [facility] Watch for signs/symptoms of infection, return to the clinic if seen Last Documented On 0 2:38PM ; [facility] Watch for signs/symptoms of infection, return to the clinic if seen Last Documented On 0 11:32AM ; [facility] Education and Decision Aids were provided during visit for: Lifestyle education Last Documented On 2 12:49PM ; [facility] Patient education about anti biotics: need to finish even if feeling better Last Documented On 2 12:59PM ; [facility] Patient education about anti biotics: need to finish even if feeling better Last Documented On 1 2:21PM ; [facility] Severe persistent asthma wit h (acute) exacerbation (Problem) Last Documented On 6 3:46PM ; [facility] Medical Equipment - Implanted Devices Includes: Current and historical Devices No Medical Equipment Recorded Medications Includes: Current and historical Medications Current Medications (continue as prescribed) Azithromycin 250 MG Oral Tablet 08/14/2023 Provider: CHEIKH ROSA Diagnosis: Severe persisten t asthma with (acute) exacerbation as directed take 2 tab po qd for 1 day then take 1 tab po qd for 4 days Last Documented On 3 3:54PM By Cheikh ROSA ; [facility] Medrol 4 MG Oral Tablet Therapy Pack 08/14/2023 Provider: CHEIKH ROSA Diagnosis: Severe persisten t asthma with (acute) exacerbation as directed Last Documented On 3 3:54PM By Cheikh ROSA ; [facility] hydrOXYzine HCl 10 MG Oral Tablet 06/11/2023 Provide r: ELIO ROSA Diagnosis: One tablet daily Last Documented On 3 9:10AM By Elio ROSA ; [facility] Estarylla 0.25-35 MG-MCG Oral Tablet 06/11/2023 Provider: ELIO A [facility] DIRECT[facility]-C Diagnosis: Encounter for in itial prescription of contraceptive pills TAKE 1 TABLET BY MOUTH DAILY Last Documented On 3 9:10AM By Elio ROSA ; [facility] Montelukast Sodium 10 MG Oral Tablet 06/11/2023 Provider: ELIO ROSA Diagnosis: Severe persisten t asthma with (acute) exacerbation TAKE 1 TABLET BY MOUTH DAILY Last Documented On 3 9:10AM By Elio ROSA ; [facility] amLODIPine Besylate 10 MG Oral Tablet 06/11/2023 Provider: ELIO MAGANA-C Diagnosis: Essential (prima ry) hypertension One tablet daily Last Documented On 3 9:10AM By Elio ROSA ; [facility] Trelegy Ellipta 100-62.5-25 MCG/ACT Inhalation Aerosol Powder Breath Activated 06/11/2023 Provider: ELIO Thomas SLATE HANDLER-C Diagnosis: INHALE 1 PUFF BY MOUTH DAILY Last Documented On 3 6:49AM By Elio ROSA ; [facility] Fluticasone Propionate 50 MCG/ACT Nasal Suspension 06/11/2023 Provider: ELIO MAGANA-C Diagnosis: Polycystic kidne y, unspecified 1 spray in each notril BID Last Documented On 3 9:10AM By Elio ROSA ; [facility] Biotin Plus Keratin 66314-530 MCG-MG Oral Tablet 06/10 Provider: Diagnosis: OTC Last Documented On 3 4:15PM By Elio ROSA ; [facility] Metoprolol Tartrate 25 MG Oral Tablet 06/10/2023 Provider: ELIO MAGANA-C Diagnosis: Essential (prima ry) hypertension One tablet twice a day Last Documented On 3 4:49PM By Elio GAYTANC ; [facility] Potassium Chloride ER 20 MEQ Oral Tablet Extended Release 10/30/2022 Provider: MARCY RETANA PA DillonC Diagnosis: Essential (prima ry) hypertension TAKE 1 TABLET BY MOUTH TWICE DAILY Last Documented On 2 8:20AM By Marcy Retana PA-C ; [facility] Albuterol Sulfate HFA 108 (90 Base) MCG/ACT Inhalation Aerosol Solution 10/01/2022 Provider: MARCY Busby Diagnosis: Severe persisten t asthma with (acute) exacerbation inhale 1-2 puffs every 4-6 h ours as needed Last Documented On 2 4:59PM By Marcy Retana PA-C ; [facility] [place] 3 1000 MG Oral Capsule 10/01/2022 Provider: Diagnosis: Last Documented On 10/01/2022 3:47PM By GLENN GEE ; [facility] Daily Value Multivitamin Oral Tablet 10/01/2022 Prov ider: Diagnosis: Last Documented On 10/01/2022 3:48PM By GLENN GEE ; [facility] Albuterol Sulfate (2.5 MG/3ML) 0.083% Inhalation Nebulization solution 04/08/2022 Provider: ELIO ROSA Diagnosis: Severe persisten t asthma with (acute) exacerbation USE 1 VIAL VIA NEBULIZER CHAYITO RY 4 HOURS NEEDED Last Documented On 2 8:14AM By Elio ROSA ; [facility] Past Medications on file Trelegy Ellipta 100-62.5-25 MCG/ACT Inhalation Aerosol Powder Breath Activated 05/14/2023 - 06/10/2023 Provider: MARCY CANNON PA-C Diagnosis: Last Documented On 3 4:16PM By Elio ROSA ; [facility] Trelegy Ellipta 100-62.5-25 MCG/ACT Inhalation Aerosol Powder Breath Activated 05/14/2023 - 06/11/2023 Provider: MARCY CANNON PA-C Diagnosis: 1 puff daily Last Documented On 3 9:00AM By Elio ROSA ; [facility] Montelukast Sodium 10 MG Oral Tablet 05/13/2023 - 06/10/2023 Provider: MARCY RETANA PA-C Diagnosis: Severe persisten t asthma with (acute) exacerbation TAKE 1 TABLET BY MOUTH DAILY Last Documented On 3 9:00AM By Elio ROSA ; [facility] hydrOXYzine HCl 10 MG Oral Tablet 05/01/2023 - 06/10/2023 Provider: MARCY Beard PA-C Diagnosis: Last Documented On 3 9:00AM By Elio ROSA ; [facility] amLODIPine Besylate 10 MG Oral Tablet 04/26/2023 - 06/10/2023 Provider: MARCY RETANA PA-C Diagnosis: Essential (prima ry) hypertension TAKE 1 TABLET BY MOUTH DAILY Last Documented On 3 9:00AM By Elio ROSA ; [facility] amLODIPine Besylate 10 MG Oral Tablet 04/17/2023 - 04/26/2023 Provider: MARCY RETANA PA-C Diagnosis: Essential (prima ry) hypertension TAKE 1 TABLET BY MOUTH DAILY Last Documented On 3 8:26AM By Marcy Retana PA-C ; [facility] Flonase Allergy Relief 50 MCG/ACT Nasal Suspension 04/17/2023 - 06/10/2023 Provider: MARCY RETANA PA-C Diagnosis: Allergic rhiniti s, unspecified 1 spray in each notril once daily Last Documented On 3 9:00AM By Elio ROAS ; [facility] Montelukast Sodium 10 MG Oral Tablet 04/15/2023 - 05/13/2023 Provider: MARCY RETANA PA-C Diagnosis: Severe persisten t asthma with (acute) exacerbation TAKE 1 TABLET BY MOUTH DAILY . MAKE APPOINTMENT Last Documented On 3 8:26AM By Marcy Retana PA-C ; [facility] amLODIPine Besylate 10 MG Oral Tablet 04/15/2023 - 04/16/2023 Provider: MARCY Beard PA-C Diagnosis: TAKE 1 TABLET BY MOUTH DAILY Last Documented On 3 8:05AM By Marcy Retana PA-C ; [facility] amLODIPine Besylate 10 MG Oral Tablet 01/31/2023 - 04/15/2023 Provider: MARCY Beard PA-C Diagnosis: One tablet daily Last Documented On 3 10:18AM By Marcy Retana PA-C ; [facility] Zithromax Z-Jigar 250 MG Oral Tablet 01/29/2023 - 04/16/2023 Provider: ELIO MARTIN Diagnosis: Acute maxillary sinusitis, unspecified as directed Last Documented On 04/16/2023 4:25PM By Kristin GEE ; [facility] amLODIPine Besylate 10 MG Oral Tablet 11/16/2022 - 01/31/2023 Provider: MARCY Beard PA-C Diagnosis: One tablet daily Last Documented On 3 2:55PM By Marcy Retana PA-C ; [facility] Zithromax Z-Jigar 250 MG Oral Tablet 10/13/2022 - 04/16/2023 Provider: ELIO MARTIN Diagnosis: Streptococcal pharyngitis as directed Last Documented On 04/16/2023 4:29PM By Kristin GEE ; [facility] Potassium Chloride ER 20 MEQ Oral Tablet Extended Release 10/01/2022 - 10/30/2022 Provider: AMARI KIMBALL M.D. Diagnosis: Essential (prima ry) hypertension One tablet twice a day Last Documented On 2 8:15AM By Marcy Retana PA-C ; [facility] hydrOXYzine HCl 10 MG Oral Tablet 10/01/2022 - 06/10/2023 Provider: MARCY RETANA PA-C Diagnosis: Allergic rhiniti s, unspecified 1 tab TID PRN Last Documented On 3 4:14PM By Elio ROSA ; [facility] Montelukast Sodium 10 MG Oral Tablet 10/01/2022 - 04/15/2023 Provider: MARCY RETANA PA-C Diagnosis: Severe persisten t asthma with (acute) exacerbation TAKE 1 TABLET BY MOUTH DAILY -MAKE APPT Last Documented On 3 8:26AM By Marcy Retana PA-C ; [facility] Estarylla 0.25-35 MG-MCG Oral Tablet 10/01/2022 - 06/10/2023 Provider: MARCY RETANA PA-C Diagnosis: Encounter for in itial prescription of contraceptive pills TAKE 1 TABLET BY MOUTH DAILY Last Documented On 3 9:00AM By Elio ROSA ; [facility] amLODIPine Besylate 5 MG Oral Tablet 10/01/2022 - 11/16/2022 Provider: MARCY RETANA PA-C Diagnosis: Essential (prima ry) hypertension TAKE 1 TABLET BY MOUTH EVERY MORNING- make appt Last Documented On 3 10:32PM By Marcy Retana PA-C ; [facility] Montelukast Sodium 10 MG Oral Tablet 08/27/2022 - 10/01/2022 Provider: MARCY RETANA PA-C Diagnosis: Severe persisten t asthma with (acute) exacerbation TAKE 1 TABLET BY MOUTH DAILY -MAKE APPT Last Documented On 2 4:51PM By Marcy Retana PA-C ; [facility] Estarylla 0.25-35 MG-MCG Oral Tablet 08/27/2022 - 10/01/2022 Provider: MARCY RETANA PA-C Diagnosis: Encounter for in itial prescription of contraceptive pills TAKE 1 TABLET BY MOUTH DAILY Last Documented On 2 4:51PM By Marcy Retana PA-C ; [facility] Nvubuheq-Jcptuchjt-Bpojyhyb 0.1% Ophthalmic Suspension 06/22/2022 - 09/04/2022 Provider: ELIO MARTIN Diagnosis: Cellulitis of fa ce as directed Last Documented On 2 3:37PM By AUDREY MARTIN ; [facility] Sulfamethoxazole-Trimethopri m 800-160 MG Oral Tablet 06/22/2022 - 09/04/2022 Provider: ELIO MARTIN Diagnosis: Cellulitis of face One tablet twice a day Last Documented On 2 3:38PM By AUDREY MARTIN ; [facility] Estarylla 0.25-35 MG-MCG Oral Tablet 05/28/2022 - 08/27/2022 Provider: ELIO ROSA Diagnosis: Encounter for in itial prescription of contraceptive pills TAKE 1 TABLET BY MOUTH DAILY Last Documented On 2 8:22AM By Marcy Retana PA-C ; [facility] Cefuroxime Axetil 500 MG Oral Tablet 05/15/2022 - 09/04/2022 Provider: CHEIKH ROSA Diagnosis: Acute sinusitis, unspecified One tablet twice a day Last Documented On 2 3:38PM By AUDREY QUEVEDOPLUZMA ; [facility] Meclizine HCl 25 MG Oral Tablet 05/15/2022 - 09/04/2022 Provider: CHEIKH ROSA Diagnosis: Acute serous kaylene tis media, bilateral 1 every 6 hours as needed Last Documented On 2 3:38PM [facility] ; [facility] Medrol 4 MG Oral Tablet Therapy Pack 05/15/2022 - 09/04/2022 Provider: CHEIKH ROSA Diagnosis: Acute bronchitis , unspecified as directed Last Documented On 2 3:38PM By AUDERY QUEVEDOPLUZMA ; [facility] Benzonatate 200 MG Oral Capsule 05/04/2022 - 05/15/2022 Provider: CHEIKH ROSA Diagnosis: Cough, unspecifi ed One tablet three times a day Last Documented On 2 10:23AM By Cheikh ROSA ; [facility] Medrol 4 MG Oral Tablet Therapy Pack 05/04/2022 - 05/15/2022 Provider: CHEIKH ROSA Diagnosis: Acute bronchitis , unspecified as directed Last Documented On 2 10:24AM By Cheikh ROSA ; [facility] Azithromycin 250 MG Oral Tablet 05/04/2022 - 05/15/2022 Provider: CHEIKH ROSA Diagnosis: Acute bronchitis , unspecified as directed take 2 tab po qd for 1 day then take 1 tab po qd for 4 days Last Documented On 2 10:23AM By Cheikh ROSA ; [facility] Potassium Chloride ER 20 MEQ Oral Tablet Extended Release 03/15/2022 - 10/01/2022 Provider: MARCY Beard PA-C Diagnosis: Hypokalemia 1 tab twice daily x 1 week then weekly Last Documented On 10/01/2022 3:47PM By GLENN GEE ; [facility] hydrOXYzine HCl 25 MG Oral Tablet 03/02/2022 - 10/01/2022 Provider: MARCY Beard PA-C Diagnosis: 1 tab 3 times daily as needed Last Documented On 2 4:49PM By Marcy Retana PA-C ; [facility] Trelegy Ellipta 100-62.5-25 MCG/INH Inhalation Aerosol Powder Breath Activated 03/02/2022 - 04/16/2023 Provider: MARCY RETANA PA-C Diagnosis: Acute bronchitis , unspecified 1 inhalation daily Last Documented On 04/16/2023 4:25PM By Kristin GEE ; [facility] ProAir HFA 108 (90 Base) MCG/ACT Inhalation Aerosol Solution 03/02/2022 - 10/01/2022 Provider: MARCY RETANA PA-C Diagnosis: Acute bronchitis , unspecified use as directed 2 puffs ever y 4-6 hours as needed Last Documented On 2 4:51PM By Marcy Retana PA-C ; [facility] Montelukast Sodium 10 MG Oral Tablet 03/02/2022 - 08/27/2022 Provider: MARCY RETANA PA-C Diagnosis: Severe persisten t asthma with (acute) exacerbation TAKE 1 TABLET BY MOUTH DAILY Last Documented On 2 8:22AM By Marcy Retana PA-C ; [facility] amLODIPine Besylate 5 MG Oral Tablet 03/02/2022 - 10/01/2022 Provider: MARCY RETANA PA-C Diagnosis: Essential (prima ry) hypertension TAKE 1 TABLET BY MOUTH EVERY MORNING- make appt Last Documented On 2 4:51PM By Marcy Retana PA-C ; [facility] Zithromax Z-Jigar 250 MG Oral Tablet 01/15/2022 - 03/02/2022 Provider: [facility] DIRECTOR-BC Diagnosis: Acute maxillary sinusitis, unspecified as directed Last Documented On 03/02/2022 9:20AM By Patricia GEE ; [facility] Benzonatate 100 MG Oral Capsule 01/07/2022 - 03/02/2022 Provider: ELIO MARTIN Diagnosis: Acute cough 1 CAPSULE TWO TIMES A DAY Last Documented On 03/02/2022 9:19AM By Patricia GEE ; [facility] ProAir HFA 108 (90 Base) MCG/ACT Inhalation Aerosol Solution 01/07/2022 - 03/02/2022 Provider: ELIO MARTIN Diagnosis: Wheezing use as directed 2 puffs every 4-6 hours as neede d Last Documented On 10:42AM By Marcy Retana PA-C ; [facility] Zithromax Z-Jigar 250 MG Oral Tablet 01/07/2022 - 01/15/2022 Provider: ELIO MARTIN Diagnosis: Acute maxillary sinusitis, unspecified as directed Last Documented On 12:45PM By ELIO MARTIN ; [facility] Medrol 4 MG Oral Tablet Therapy Pack 01/07/2022 - 03/02/2022 Provider: ELIO MARTIN Diagnosis: Acute maxillary sinusitis, unspecified as directed Last Documented On 03/02/2022 9:20AM By Patricia GEE ; [facility] Fluticasone Propionate 50 MCG/ACT Nasal Suspension 12/31/2021 - 03/02/2022 Provider: MARCY RETANA PA-C Diagnosis: Allergic rhiniti s, unspecified SHAKE LIQUID AND USE 2 SPRAY S IN EACH NOSTRIL DAILY- make appt Last Documented On 03/02/2022 9:19AM By Patricia GEE ; [facility] amLODIPine Besylate 5 MG Oral Tablet 12/31/2021 - 03/02/2022 Provider: MARCY RETANA PA-C Diagnosis: Essential (prima ry) hypertension TAKE 1 TABLET BY MOUTH EVERY MORNING- make appt Last Documented On 10:41AM By Marcy Retana PA-C ; [facility] Fluticasone-Salmeterol 250-5 0 MCG/DOSE Inhalation Aerosol Powder Breath Activated 12/31/2021 - 03/02/2022 Provider: MARCY RETANA PA-C Diagnosis: Acute bronchitis , unspecified INHALE 1 PUFF BY MOUTH TWICE DAILY- make appt Last Documented On 03/02/2022 9:20AM By Patricia GEE ; [facility] Benzonatate 200 MG Oral Capsule 12/31/2021 - 03/02/2022 Provider: CHEIKH ROSA Diagnosis: Cough, unspecifi ed One tablet three times a day Last Documented On 03/02/2022 9:19AM By Patricia GEE ; [facility] ProAir HFA 108 (90 Base) MCG/ACT Inhalation Aerosol Solution 12/31/2021 - 03/02/2022 Provider: CHEIKH ROSA Diagnosis: Acute bronchitis , unspecified use as directed 2 puffs ever y 4-6 hours as needed Last Documented On 10:41AM By Marcy Retana PA-C ; [facility] Montelukast Sodium 10 MG Oral Tablet 12/11/2021 - 03/02/2022 Provider: MARCY RETANA PA-C Diagnosis: Severe persisten t asthma with (acute) exacerbation TAKE 1 TABLET BY MOUTH DAILY Last Documented On 2 10:41AM By Marcy Retana PA-C ; [facility] hydrOXYzine HCl 50 MG Oral Tablet 11/07/2021 - 03/02/2022 Provider: MARCY RETANA PA-C Diagnosis: Allergic rhiniti s, unspecified TAKE 1 TABLET BY MOUTH AT BEDTIME Last Documented On 03/02/2022 9:20AM By Patricia GEE ; [facility] Montelukast Sodium 10 MG Oral Tablet 11/07/2021 - 12/11/2021 Provider: MARCY RETANA PA-C Diagnosis: Severe persisten t asthma with (acute) exacerbation TAKE 1 TABLET BY MOUTH DAILY Last Documented On 2 9:17AM By Marcy Retana PA-C ; [facility] Azithromycin 250 MG Oral Tablet 10/07/2021 - 11/07/2021 Provider: CHEIKH ROSA Diagnosis: as directed take 2 tab po qd for 1 day then take 1 tab po qd for 4 days Last Documented On 1 2:34PM By RUIZ GEE ; [facility] Medrol 4 MG Oral Tablet Therapy Pack 09/30/2021 - 11/07/2021 Provider: [facility] DIRECTOR-C Diagnosis: Acute upper resp iratory infection, unspecified as directed Last Documented On 1 2:34PM By RUIZ GEE ; [facility] Benzonatate 200 MG Oral Capsule 09/30/2021 - 03/02/2022 Provider: [facility] DIRECTOR-C Diagnosis: Acute upper respiratory infection, unspecified One tablet three times a day as needed Last Documented On 03/02/2022 9:19AM By Patricia GEE ; [facility] Cefuroxime Axetil 500 MG Oral Tablet 09/30/2021 - 11/07/2021 Provider: [facility] DIRECTOR-C Diagnosis: Acute upper respiratory infection, unspecified One tablet twice a day Last Documented On 1 2:34PM By RUIZ GEE ; [facility] Azithromycin 250 MG Oral Tablet 09/18/2021 - 11/07/2021 Provider: MORRIS [facility]ARDO [facility] DIRECTOR-C Diagnosis: Acute upper respiratory infection, unspecified as directed Take two tablets on day 1. Then, take one tablet on day 2-5 Last Documented On 1 2:34PM By RUIZ GEE ; [facility] Fluticasone-Salmeterol 250-5 0 MCG/DOSE Inhalation Aerosol Powder Breath Activated 09/10/2021 - 12/31/2021 Provider: NICHOL MONTERROSO MD Diagnosis: Acute bronchitis , unspecified INHALE 1 PUFF BY MOUTH TWICE DAILY Last Documented On 2 7:52PM By Marcy Retana PA-C ; [facility] amLODIPine Besylate 5 MG Oral Tablet 08/27/2021 - 12/31/2021 Provider: NICHOL MONTERROSO MD Diagnosis: Essential (prima ry) hypertension TAKE 1 TABLET BY MOUTH EVERY MORNING Last Documented On 2 7:53PM By Marcy Retana PA-C ; [facility] Estarylla 0.25-35 MG-MCG Oral Tablet 08/14/2021 - 05/28/2022 Provider: NICHOL MONTERROSO MD Diagnosis: Encounter for in itial prescription of contraceptive pills TAKE 1 TABLET BY MOUTH DAILY Last Documented On 2 8:15AM By Elio MAGANA-C ; [facility] hydrOXYzine HCl 50 MG Oral Tablet 07/28/2021 - 11/07/2021 Provider: NICHOL MONTERROSO MD Diagnosis: Allergic rhiniti s, unspecified TAKE 1 TABLET BY MOUTH AT BEDTIME Last Documented On 1 3:58PM By Marcy Retana PA-C ; [facility] Montelukast Sodium 10 MG Oral Tablet 07/03/2021 - 11/07/2021 Provider: NICHOL MONTERROSO MD Diagnosis: Severe persisten t asthma with (acute) exacerbation TAKE 1 TABLET BY MOUTH DAILY Last Documented On 1 3:57PM By Marcy Retana PA-C ; [facility] Fluticasone Propionate 50 MCG/ACT Nasal Suspension 07/03/2021 - 12/31/2021 Provider: NICHOL MONTERROSO MD Diagnosis: Allergic rhiniti s, unspecified SHAKE LIQUID AND USE 2 SPRAY S IN EACH NOSTRIL DAILY Last Documented On 2 7:53PM By Marcy Retana PA-C ; [facility] Norvasc 5 MG Oral Tablet 05/30/2021 - 08/27/2021 Provider: NICHOL MONTERROSO MD Diagnosis: Essential (prima ry) hypertension 1 Capsule every morning Last Documented On 08/27/2021 3:12PM By NICHOL MONTERROSO MD ; [facility] Wixela Inhub 250-50 MCG/DOSE Inhalation Aerosol Powder Breath Activated 05/30/2021 - 09/10/2021 Provider: NICHLO MONTERROSO MD Diagnosis: Acute bronchitis , unspecified 2 inhalation daily Last Documented On 09/10/2021 3:59PM By NICHOL MONTERROSO MD ; [facility] ProAir HFA 108 (90 Base) MCG/ACT Inhalation Aerosol Solution 05/30/2021 - 12/31/2021 Provider: NICHOL MONTERROSO MD Diagnosis: Acute bronchitis , unspecified use as directed 2 puffs ever y 4-6 hours as needed Last Documented On 2:52PM By Cheikh MAGANA-C ; [facility] Montelukast Sodium 10 MG Oral Tablet 05/30/2021 - 07/03/2021 Provider: NICHOL MONTERROSO MD Diagnosis: Severe persisten t asthma with (acute) exacerbation One tablet daily Last Documented On 07/03/2021 9:34AM By NICHOL MONTERROSO MD ; [facility] hydrOXYzine HCl 50 MG Oral Tablet 05/30/2021 - 07/28/2021 Provider: NICHOL MONTERROSO MD Diagnosis: Allergic rhiniti s, unspecified TAKE 1 TABLET BY MOUTH AT BEDTIME Last Documented On 07/28/2021 8:24AM By NICHOL MONTERROSO MD ; [facility] Fluticasone Propionate 50 MCG/ACT Nasal Suspension 05/30/2021 - 07/03/2021 Provider: NICHOL MONTERROSO MD Diagnosis: Allergic rhiniti s, unspecified 2 sprays each nostril daily Last Documented On 07/03/2021 9:33AM By NICHOL MONTERROSO MD ; [facility] Cefuroxime Axetil 500 MG Oral Tablet 05/11/2021 - 05/30/2021 Provider: ELIO QUEVEDOPDillon Diagnosis: Acute bronchitis , unspecified One tablet twice a day Last Documented On 05/30/2021 4:20PM By GLORIA GEE ; [facility] Medrol 4 MG Oral Tablet Therapy Pack 05/11/2021 - 05/30/2021 Provider: ELIO GAYTAN Diagnosis: Acute bronchitis , unspecified as directed Last Documented On 05/30/2021 4:20PM By GLORIA GEE ; [facility] ProAir HFA 108 (90 Base) MCG/ACT Inhalation Aerosol Solution 05/11/2021 - 05/30/2021 Provider: ELIO MARTIN Diagnosis: Acute bronchitis , unspecified use as directed 2 puffs ever y 4-6 hours as needed Last Documented On 05/30/2021 5:02PM By NICHOL MONTERROSO MD ; [facility] predniSONE 20 MG Oral Tablet 04/19/2021 - 05/30/2021 Selma rovider: NICHOL MONTERROSO MD Diagnosis: One tablet daily Last Documented On 05/30/2021 4:20PM By GLORIA GEE ; [facility] Montelukast Sodium 10 MG Oral Tablet 04/19/2021 - 05/30/2021 Provider: NICHOL MONTERROSO MD Diagnosis: Severe persisten t asthma with (acute) exacerbation One tablet daily Last Documented On 05/30/2021 5:02PM By NICHOL MONTERROSO MD ; [facility] ProAir HFA 108 (90 Base) MCG/ACT Inhalation Aerosol Solution 04/19/2021 - 05/30/2021 Provider: NICHOL MONTERROSO MD Diagnosis: Severe persisten t asthma with (acute) exacerbation 2 puff every 4 hours as needed. Last Documented On 05/30/2021 4:20PM By GLORIA GEE ; [facility] Breztri Aerosphere 160-9-4.8 MCG/ACT Inhalation Aerosol 04/14/2021 - 03/02/2022 Provider: NICHOL MIDDLETON MD Diagnosis: 2 puffs four times a day Last Documented On 03/02/2022 9:19AM By Patricia GEE ; [facility] Estarylla 0.25-35 MG-MCG Oral Tablet 12/16/2020 - 08/14/2021 Provider: NICHOL MONTERROSO MD Diagnosis: Encounter for in itial prescription of contraceptive pills One tablet daily Last Documented On 08/14/2021 8:29AM By NICHOL MONTERROSO MD ; [facility] Albuterol Sulfate (2.5 MG/3ML) 0.083% Inhalation Nebulization solution 12/16/2020 - 04/08/2022 Provider: NICHOL MONTERROSO MD Diagnosis: Severe persisten t asthma with (acute) exacerbation 1 vial via nebulizer Q4H as needed. Last Documented On 8:12AM By Elio MAGANA-Pb ; [facility] Fluticasone Propionate 50 MCG/ACT Nasal Suspension 10/19/2020 - 05/30/2021 Provider: NICHOL MONTERROSO MD Diagnosis: Allergic rhiniti s, unspecified 2 sprays each nostril daily Last Documented On 05/30/2021 5:02PM By NICHOL MONTERROSO MD ; [facility] Albuterol Sulfate (2.5 MG/3ML) 0.083% Inhalation Nebulization solution 10/07/2020 - 12/16/2020 Provider: ELIO MAGANA-C Diagnosis: Severe persisten t asthma with (acute) exacerbation 1 vial via nebulizer Q4H as needed. Last Documented On 12/16/2020 1:53PM By Leigha GEE ; [facility] Cephalexin 500 MG Oral Capsule 10/07/2020 - 05/30/2021 Provider: ELIO JOY [facility] DIRECTOR-C Diagnosis: Streptococcal pharyngitis One tablet twice a day Last Documented On 05/30/2021 4:20PM By GLORIA HAYNES Amada ; [facility] Symbicort 160-4.5 MCG/ACT Inhalation Aerosol 10/07/2020 - 12/31/2021 Provider: ELIO QUEVEDOP-C Diagnosis: Severe persisten t asthma with (acute) exacerbation 2 puffs BID Last Documented On 2 2:52PM By Cheikh Rain [facility] DIRECTOR-C ; [facility] Estarylla 0.25-35 MG-MCG Oral Tablet 09/20/2020 - 12/16/2020 Provider: ELIO QUEVEDOP-C Diagnosis: Encounter for in itial prescription of contraceptive pills One tablet daily Last Documented On 12/16/2020 3:13PM By NICHOL MONTERROSO MD ; [facility] predniSONE 10 MG Oral Tablet 09/19/2020 - 10/07/2020 Provider: ELIO QUEVEDOP-C Diagnosis: COVID-19 take 4 tablets daily X 3 day s, 2 tablets daily X 3 days, then 1 tablet daily X 3 days. Last Documented On 0 8:33AM By RUIZ KENNEDY Amada ; [facility] Albuterol Sulfate (2.5 MG/3ML) 0.083% Inhalation Nebulization solution 09/19/2020 - 10/07/2020 Provider: ELIO QUEVEDOP-C Diagnosis: Severe persisten t asthma with (acute) exacerbation 1 vial per neb every 4 hours as needed. Last Documented On 0 1:08PM By Elio ROSA ; [facility] Tessalon Perles 100 MG Oral Capsule 09/19/2020 - 05/30/2021 Provider: [facility]IO TAYLOR [facility] DIRECTOR-C Diagnosis: Cough 1 capsule three times a day. Last Documented On 05/30/2021 4:20PM By GLORIA GEE ; [facility] hydrOXYzine HCl 50 MG Oral Tablet 09/01/2020 - 05/30/2021 Provider: NICHOL Estrada MD Diagnosis: TAKE 1 TABLET BY MOUTH AT BEDTIME Last Documented On 05/30/2021 5:02PM By NICHOL MONTERROSO MD ; [facility] Sulfamethoxazole-Trimethopri m 800-160 MG Oral Tablet 08/28/2020 - 10/07/2020 Provider: MORRIS [facility]ERNARDO [facility] DIRECTOR-C Diagnosis: Cellulitis of left upper limb One tablet twice a day Last Documented On 0 8:34AM By RUIZ GEE ; [facility] Montelukast Sodium 10 MG Oral Tablet 08/01/2020 - 04/19/2021 Provider: NICHOL MONTERROSO MD Diagnosis: Severe persisten t asthma with (acute) exacerbation One tablet daily Last Documented On 1 10:17AM By NICHOL MONTERROSO MD ; [facility] Symbicort 160-4.5 MCG/ACT Inhalation Aerosol 06/01/2020 - 10/07/2020 Provider: AMADO MALIKC Diagnosis: 2 puffs BID Last Documented On 0 9:13AM By Elio Joy [facility] DIRECTOR-C ; [facility] Symbicort 160-4.5 MCG/ACT Inhalation Aerosol 03/25/2020 - 06/01/2020 Provider: NICHOL Estrada MD Diagnosis: 2 puffs BID Last Documented On 06/01/2020 4:17PM By Bea GEE ; [facility] [employer] Miscellaneous 03/18/2020 - 10/07/2020 Provider: NERISSA CHATMAN [facility] DIRECT[facility]-C Diagnosis: Pain in unspecif ied elbow as directed Last Documented On 0 8:36AM By RUIZ GEE ; [facility] Acetaminophen-Codeine #3 300-30 MG Oral Tablet 03/18/2020 - 10/07/2020 Provider: NERISSA ROSA Diagnosis: Pain in right elbow 1 every 6 hours as needed Last Documented On 0 8:35AM By RUIZ GEE ; [facility] Symbicort 160-4.5 MCG/ACT Inhalation Aerosol 03/18/2020 - 03/25/2020 Provider: NERISSA ROSA Diagnosis: as directed 2 puff bid Last Documented On 0 11:25AM By NICHOL MONTERROSO MD ; [facility] Albuterol Sulfate (2.5 MG/3ML) 0.083% Inhalation Nebulization solution 03/18/2020 - 09/19/2020 Provider: NERISSA ROSA Diagnosis: Severe persisten t asthma with (acute) exacerbation 1 vial per neb every 4 hours as needed. Last Documented On 0 4:36PM By Elio MAGANA-C ; [facility] Azithromycin 500 MG Oral Tablet 02/26/2020 - 05/26/2020 Provider: MORRIS ROSA Diagnosis: Cough One tablet daily Last Documented On 0 8:06AM By RUIZ GEE ; [facility] Symbicort 160-4.5 MCG/ACT Inhalation Aerosol 02/22/2020 - 03/18/2020 Provider: NICHOL Estrada MD Diagnosis: as directed 2 puff bid Last Documented On 0 12:10PM By Nerissa ROSA ; [facility] Benzonatate 200 MG Oral Capsule 02/20/2020 - 03/18/2020 Provider: CHEIKH MAGANA-C Diagnosis: Cough One tablet three times a day Last Documented On 0 11:52AM By Balbina Soto CMA ; [facility] predniSONE 20 MG Oral Tablet 02/16/2020 - 10/07/2020 Provider: MORRIS ROSA Diagnosis: Unspecified asth ma with (acute) exacerbation as directed take two tablets daily for five days Last Documented On 0 8:33AM By RUIZ GEE ; [facility] Norvasc 5 MG Oral Tablet 01/04/2020 - 10/07/2020 Provider: NICHOL MONTERROSO MD Diagnosis: Essential (prima ry) hypertension TAKE 1 TABLET BY MOUTH DAILY Last Documented On 0 8:36AM By RUIZ GEE ; [facility] Tylenol with Codeine #3 300-30 MG Oral Tablet 12/09/2019 - 03/18/2020 Provider: NICHOL MONTERROSO MD Diagnosis: Chest pain, unsp ecified 1 every 4 - 6 hours as needed Last Documented On 0 11:53AM By Balbina Soto GAMMA RAY OPERATOR ; [facility] Benzonatate 200 MG Oral Capsule 12/09/2019 - 03/18/2020 Provider: NICHOL MONTERROSO MD Diagnosis: Severe persisten t asthma with (acute) exacerbation One tablet three times a day as needed Last Documented On 0 11:52AM By Balbina Soto CMA ; [facility] Zithromax 500 MG Oral Tablet 12/09/2019 - 03/18/2020 Provider: NICHOL MONTERROSO MD Diagnosis: Severe persisten t asthma with (acute) exacerbation One tablet daily Last Documented On 0 11:53AM By Balbina Soto CMA ; [facility] predniSONE 20 MG Oral Tablet 12/09/2019 - 03/18/2020 Provider: NICHOL MONTERROSO MD Diagnosis: Severe persisten t asthma with (acute) exacerbation as directed 1 tab po q day x 4d, 1/2 tab daily x 4d, 1/4 tab daily x4d Last Documented On 0 11:53AM By Balbina Soto CMA ; [facility] Breo Ellipta 200-25 MCG/INH Inhalation Aerosol Powder Breath Activated 11/28/2019 - 06/01/2020 Provider: NICHOL MONTERROSO MD Diagnosis: Severe persisten t asthma with (acute) exacerbation INHALE 1 PUFF BY MOUTH DAILY Last Documented On 06/01/2020 4:02PM By Bea GEE ; [facility] predniSONE 20 MG Oral Tablet 10/30/2019 - 03/18/2020 Provider: ELIO [facility]ARAYAN [facility] DIRECTOR- Diagnosis: Localized edema One tablet twice a day Last Documented On 0 11:53AM By Balbina Soto CMA ; [facility] predniSONE 20 MG Oral Tablet 09/23/2019 - 10/30/2019 Provider: CHEIKH ROSA Diagnosis: Acute upper respiratory infection, unspecified as directed 2 tab po qd x 3 then 1 tab po qd x 3 Last Documented On 9 11:44AM By GLORIA GEE ; [facility] Azithromycin 250 MG Oral Tablet 09/23/2019 - 10/30/2019 Provider: CHEIKH ROSA Diagnosis: Acute upper respiratory infection, unspecified as directed take 2 tab po qd for 1 day then take 1 tab po qd for 4 days Last Documented On 9 11:44AM By GLORIA GEE ; [facility] ProAir HFA 108 (90 Base) MCG/ACT Inhalation Aerosol Solution 09/23/2019 - 04/19/2021 Provider: CHEIKH ROSA Diagnosis: Severe persisten t asthma with (acute) exacerbation 2 puff every 4 hours as needed. Last Documented On 1 10:17AM By NICHOL MONTERROSO MD ; [facility] Vicks DayQuil/NyQuil Cough 6 .25-15 & 15 MG/15ML Oral Liquid Therapy Pack 09/23/2019 - 10/30/2019 Provider: Diagnosis: PRN-cough Last Documented On 9 11:44AM By GLORIA GEE ; [facility] Sprintec 28 0.25-35 MG-MCG Oral Tablet 08/31/2019 - 09/20/2020 Provider: NICHOL MONTERROSO MD Diagnosis: Encounter for in itial prescription of contraceptive pills One tablet daily Last Documented On 0 5:06PM By Elio MAGANA-C ; [facility] predniSONE 20 MG Oral Tablet 08/19/2019 - 09/23/2019 Provider: NICHOL MONTERROSO MD Diagnosis: Adverse effect o f other bacterial vaccines, init encntr as directed 1 tab po q day x 4d, 1/2 tab daily x 4d, 1/4 tab daily x4d Last Documented On 9 10:15AM By GLORIA GEE ; [facility] hydrOXYzine HCl 50 MG Oral Tablet 08/19/2019 - 03/18/2020 Provider: NICHOL MONTERROSO MD Diagnosis: Adverse effect o f other bacterial vaccines, init encntr One tablet at bed time Last Documented On 0 11:53AM By Balbina Soto CMA ; [facility] Keflex 500 MG Oral Capsule 08/19/2019 - 08/31/2019 Provider: NICHOL Estrada MD Diagnosis: Adverse effect o f other bacterial vaccines, init encntr One tablet three times a day Last Documented On 9 4:40PM By MARITA GEE ; [facility] Norvasc 5 MG Oral Tablet 08/17/2019 - 01/04/2020 Provider: NICHOL MONTERROSO MD Diagnosis: Essential (prima ry) hypertension One tablet daily Last Documented On 01/04/2020 7:51AM By NICHOL MONTERROSO MD ; [facility] Singulair 10 MG Oral Tablet 08/17/2019 - 08/01/2020 Provider: NICHOL MONTERROSO MD Diagnosis: Severe persisten t asthma with (acute) exacerbation One tablet daily Last Documented On 08/01/2020 8:28AM By NICHOL MONTERROSO MD ; [facility] ProAir HFA 108 (90 Base) MCG/ACT Inhalation Aerosol Solution 08/17/2019 - 09/23/2019 Provider: NICHOL MONTERROSO MD Diagnosis: Severe persisten t asthma with (acute) exacerbation 2 puff every 4 hours as needed. Last Documented On 9 10:43AM By Cheikh GAYTANC ; [facility] Breo Ellipta 200-25 MCG/INH Inhalation Aerosol Powder Breath Activated 08/17/2019 - 11/28/2019 Provider: NICHOL MONTERROSO MD Diagnosis: Severe persisten t asthma with (acute) exacerbation INHALE 1 PUFF BY MOUTH DAILY Last Documented On 0 11:47AM By NICHOL MONTERROSO MD ; [facility] Albuterol Sulfate (2.5 MG/3ML) 0.083% Inhalation Nebulization solution 08/17/2019 - 03/18/2020 Provider: NICHOL MONTERROSO MD Diagnosis: Severe persisten t asthma with (acute) exacerbation 1 vial per neb every 4 hours as needed. Last Documented On 0 12:10PM By Nerissa ROSA ; [facility] hydrOXYzine HCl 25 MG Oral Tablet 08/17/2019 - 10/07/2020 Provider: NICHOL MONTERROSO MD Diagnosis: Allergic rhiniti s, unspecified TAKE 1 TABLET BY MOUTH FOUR TIMES DAILY NEEDED Last Documented On 0 8:35AM By RUIZ GEE ; [facility] Fluticasone Propionate 50 MCG/ACT Nasal Suspension 08/17/2019 - 10/19/2020 Provider: NICHOL MONTERROSO MD Diagnosis: Allergic rhiniti s, unspecified 2 sprays each nostril daily Last Documented On 10/19/2020 8:18PM By NICHOL MONTERROSO MD ; [facility] Breo Ellipta 200-25MCG/INH Inhalation Aerosol Powder Breath Activated 06/21/2019 - 08/17/2019 Provider: NICHOL MONTERROSO MD Diagnosis: Severe persisten t asthma with (acute) exacerbation INHALE 1 PUFF BY MOUTH DAILY Last Documented On 08/17/2019 4:44PM By NICHOL MONTERROSO MD ; [facility] Singulair 10MG Oral Tablet 05/28/2019 - 08/17/2019 Provider: NICHOL MONTERROSO MD Diagnosis: Severe persisten t asthma with (acute) exacerbation One tablet daily Last Documented On 08/17/2019 4:44PM By NICHOL MONTERROSO MD ; [facility] hydrOXYzine HCl 25MG Oral Tablet 05/25/2019 - 08/17/2019 Provider: NICHOL MONTERROSO MD Diagnosis: Allergic rhiniti s, unspecified TAKE 1 TABLET BY MOUTH FOUR TIMES DAILY NEEDED Last Documented On 08/17/2019 4:44PM By NICHOL MONTERROSO MD ; [facility] Breo Ellipta 200-25MCG/INH Inhalation Aerosol Powder Breath Activated 12/24/2018 - 06/21/2019 Provider: NICHOL MONTERROSO MD Diagnosis: Severe persisten t asthma with (acute) exacerbation 1 inhalation daily Last Documented On 06/21/2019 4:48PM By NICHOL MONTERROSO MD ; [facility] ProAir HFA 108 (90 Base)MCG/ACT Inhalation Aerosol Solution 12/23/2018 - 08/17/2019 Provider: NICHOL MONTERROSO MD Diagnosis: Severe persisten t asthma with (acute) exacerbation 2 puff every 4 hours as needed. Last Documented On 08/17/2019 4:44PM By NICHOL MONTERROSO MD ; [facility] Breo Ellipta 200-25MCG/INH Inhalation Aerosol Powder Breath Activated 12/01/2018 - 12/24/2018 Provider: NICHOL MONTERROSO MD Diagnosis: Severe persisten t asthma with (acute) exacerbation 1 inhalation daily Last Documented On 12/24/2018 5:26PM By NICHOL MONTERROSO MD ; [facility] HydrOXYzine HCl 25MG Oral Tablet 09/21/2018 - 05/25/2019 Provider: NICHOL MONTERROSO MD Diagnosis: Allergic rhiniti s, unspecified Take one four times a day as needed Last Documented On 05/25/2019 9:44PM By NICHOL MONTERROSO MD ; [facility] Fluticasone Propionate 50MCG/ACT Nasal Suspension 07/02/2018 - 08/17/2019 Provider: NICHOL MONTERROSO MD Diagnosis: Allergic rhiniti s, unspecified 2 sprays each nostril daily Last Documented On 08/17/2019 4:44PM By NICHOL MONTERROSO MD ; [facility] Flonase Allergy Relief 50MCG/ACT Nasal Suspension 07/02/2018 - 03/18/2020 Provider: NICHOL MONTERROSO MD Diagnosis: Allergic rhiniti s, unspecified as directed 2 sprays each side daily Last Documented On 0 11:52AM By Balbina Soto CMA ; [facility] ProAir HFA 108 (90 Base)MCG/ACT Inhalation Aerosol Solution 07/02/2018 - 12/23/2018 Provider: NICHOL MONTERROSO MD Diagnosis: Severe persisten t asthma with (acute) exacerbation 2 puff every 4 hours as needed. Last Documented On 12/23/2018 1:26PM By NICHOL MONTERROSO MD ; [facility] EPINEPHrine 0.3MG/0.3ML Injection Solution Auto-injector 06/09/2018 - 09/23/2019 Provider: NICHOL Estrada MD Diagnosis: one injection with onset sev ere shortness of breath of swelling throat -- go to ER immediately after use Last Documented On 9 10:19AM By GLORIA GEE ; [facility] PredniSONE 20MG Oral Tablet 06/04/2018 - 07/02/2018 Provider: NICHOL MONTERROSO MD Diagnosis: Severe persisten t asthma with (acute) exacerbation 4 tab x 2d, 3 tab x2d, 2 tab x 4d, 1 tab x 4d, 1/2 tab x 4d, 1/4 tab x 4d Last Documented On 07/02/2018 3:32PM By GLORIA GEE ; [facility] HydrOXYzine HCl 25MG Oral Tablet 06/04/2018 - 09/21/2018 Provider: NICHOL MONTERROSO MD Diagnosis: Allergic rhiniti s, unspecified Take one four times a day as needed Last Documented On 09/21/2018 9:50PM By NICHOL MONTERROSO MD ; [facility] Albuterol Sulfate (2.5 MG/3ML)0.083% Inhalation Nebulization solution 06/04/2018 - 08/17/2019 Provider: NICHOL MONTERROSO MD Diagnosis: Severe persisten t asthma with (acute) exacerbation 1 vial per neb every 4 hours as needed. Last Documented On 08/17/2019 4:44PM By NICHOL MONTERROSO MD ; [facility] Singulair 10MG Oral Tablet 06/04/2018 - 05/28/2019 Provider: NICHOL MONTERROSO MD Diagnosis: Severe persisten t asthma with (acute) exacerbation One tablet daily Last Documented On 05/28/2019 3:41PM By NICHOL MONTERROSO MD ; [facility] ProAir HFA 108 (90 Base)MCG/ACT Inhalation Aerosol Solution 06/04/2018 - 07/02/2018 Provider: NICHOL MONTERROSO MD Diagnosis: Severe persisten t asthma with (acute) exacerbation 2 puff every 4 hours as needed. Last Documented On 07/02/2018 3:49PM By NICHOL MONTERROSO MD ; [facility] Breo Ellipta 200-25MCG/INH Inhalation Aerosol Powder Breath Activated 06/04/2018 - 12/01/2018 Provider: NICHOL MONTERROSO MD Diagnosis: Severe persisten t asthma with (acute) exacerbation 1 inhalation daily Last Documented On 12/01/2018 9:13AM By NICHOL MONTERROSO MD ; [facility] ProAir HFA 108 (90 Base)MCG/ACT Inhalation Aerosol Solution 05/02/2018 - 06/04/2018 Provider: NICHOL MONTERROSO MD Diagnosis: Severe persisten t asthma with (acute) exacerbation 2 puff every 4 hours as needed. Last Documented On 8 11:49AM By NICHOL MONTERROSO MD ; [facility] Singulair 10MG Oral Tablet 05/02/2018 - 06/04/2018 Provider: NICHOL MONTERROSO MD Diagnosis: Severe persisten t asthma with (acute) exacerbation One tablet daily Last Documented On 8 11:49AM By NICHOL MONTERROSO MD ; [facility] Albuterol Sulfate (2.5 MG/3ML)0.083% Inhalation Nebulization solution 05/02/2018 - 06/04/2018 Provider: NICHOL MONTERROSO MD Diagnosis: Acute bronchitis , unspecified 1 vial per neb every 4 hours as needed. Last Documented On 8 11:49AM By NICHOL MONTERROSO MD ; [facility] Zithromax 500MG Oral Tablet 12/04/2017 - 06/04/2018 Provider: NICHOL MONTERROSO MD Diagnosis: Acute pharyngiti s, unspecified One tablet daily Last Documented On 8 11:21AM By GLORIA GEE ; [facility] PredniSONE 20MG Oral Tablet 12/04/2017 - 06/04/2018 Provider: NICHOL MONTERROSO MD Diagnosis: Severe persisten t asthma with (acute) exacerbation 3 tabs today, 2 tab po qd x 4d, 1 tab po q day x 4d, 1/2 tab daily x 4d, 1/4 tab daily x4d Last Documented On 8 11:19AM By GLORIA GEE ; [facility] Tamiflu 75MG Oral Capsule, conventional 12/04/2017 - 06/04/2018 Provider: NICHOL MONTERROSO MD Diagnosis: Severe persisten t asthma with (acute) exacerbation One tablet twice a day Last Documented On 8 11:21AM By GLORIA GEE ; [facility] Breo Ellipta 200-25MCG/INH Inhalation Aerosol Powder Breath Activated 11/19/2017 - 06/04/2018 Provider: NICHOL MONTERROSO MD Diagnosis: Severe persisten t asthma with (acute) exacerbation 1 inhalation daily Last Documented On 8 11:49AM By NICHOL MONTERROSO MD ; [facility] Pennsaid 2% Transdermal Solution 10/25/2017 - 06/04/2018 Provider: [facility] DIRECT[facility]-C Diagnosis: apply bid prn Last Documented On 8 11:19AM By GLORIA HAYNES Amada ; [facility] Tylenol with Codeine #3 300-30MG Oral Tablet 10/23/2017 - 06/04/2018 Provider: CHEIKH SALCEDO [facility]C Diagnosis: Carpal tunnel syndrome, right upper limb 1 every 6 hours as needed Last Documented On 8 11:20AM By GLORIA GEE ; [facility] PredniSONE 20MG Oral Tablet 10/23/2017 - 12/04/2017 Provider: [facility]-C Diagnosis: Carpal tunnel syndrome, right upper limb as directed 2 tab po qd x 4 then 1 tab po qd x 4 and then 1/2 tab po qd x 4 Last Documented On 12/04/2017 1:29PM By GLORIA GEE ; [facility] HydrOXYzine HCl 25MG Oral Tablet 08/27/2017 - 06/04/2018 Provider: NICHOL MONTERROSO MD Diagnosis: Allergic rhiniti s, unspecified Take one four times a day as needed Last Documented On 8 11:49AM By NICHOL MONTERROSO MD ; [facility] Fluticasone Propionate 50MCG/ACT Nasal Suspension 05/06/2017 - 07/02/2018 Provider: NICHOL MIDDLETON MD Diagnosis: 2 sprays each nostril daily Last Documented On 07/02/2018 3:49PM By NICHOL MONTERROSO MD ; [facility] Breo Ellipta 200-25MCG/INH Inhalation Aerosol Powder Breath Activated 04/23/2017 - 11/19/2017 Provider: NICHOL MONTERROSO MD Diagnosis: Severe persisten t asthma with (acute) exacerbation 1 inhalation daily Last Documented On 11/19/2017 7:59PM By NICHOL MONTERROSO MD ; [facility] Albuterol Sulfate (2.5 MG/3ML)0.083% Inhalation Nebulization solution 04/15/2017 - 05/02/2018 Provider: NICHOL MONTERROSO MD Diagnosis: Acute bronchitis , unspecified as directed1 vial per neb ev ottoniel 4 hours as needed. Last Documented On 05/02/2018 7:09PM By NICHOL MONTERROSO MD ; [facility] ProAir HFA 108 (90 Base)MCG/ACT Inhalation Aerosol Solution 02/12/2017 - 05/02/2018 Provider: NICHOL MONTERROSO MD Diagnosis: Severe persisten t asthma with (acute) exacerbation 2 puffs four times a day Last Documented On 05/02/2018 7:11PM By NICHOL MONTERROSO MD ; [facility] ProAir HFA 108 (90 Base) MCG/ACT Aerosol Solution 11/29/2016 - 02/12/2017 Provider: NICHOL MONTERROSO MD Diagnosis: Severe persisten t asthma with (acute) exacerbation 2 puffs four times a day as needed Last Documented On 02/12/2017 2:09PM By NICHOL MONTERROSO MD ; [facility] Singulair 10 MG Tablet 11/29/2016 - 05/02/2018 Provider: NICHOL MONTERROSO MD Diagnosis: Severe persisten t asthma with (acute) exacerbation One tablet daily Last Documented On 05/02/2018 7:10PM By NICHOL MONTERROSO MD ; [facility] Xanax 1 MG Tablet 11/29/2016 - 06/04/2018 Provider: NICHOL MONTERROSO MD Diagnosis: Severe persisten t asthma with (acute) exacerbation One tablet three times a day as needed Last Documented On 8 11:20AM By GLORIA GEE ; [facility] PredniSONE 20 MG Tablet 11/29/2016 - 12/04/2017 Provider: NICHOL MONTERROSO MD Diagnosis: Severe persisten t asthma with (acute) exacerbation 3 tab qd x4d, 2 tab qd x4d, 1 tab po q day x 4d, 1/2 tab daily x 4d, 1/4 tab daily x4d Last Documented On 12/04/2017 1:29PM By GLORIA GEE ; [facility] Cyclobenzaprine HCl 10 MG Tablet 11/29/2016 - 06/04/2018 Provider: NICHOL MONTERROSO MD Diagnosis: Disp fx of third metatarsal bone, right foot, sequela One tablet twice a day as needed Last Documented On 8 11:21AM By GLORIA GEE ; [facility] Hydrocodone-Acetaminophen 10 -325 MG Tablet 11/29/2016 - 06/04/2018 Provider: NICHOL MONTERROSO MD Diagnosis: Disp fx of third metatarsal bone, right foot, sequela Take one four times a day as needed Last Documented On 8 11:20AM By GLORIA GEE ; [facility] HydrOXYzine HCl 25 MG Tablet 11/29/2016 - 08/27/2017 Provider: NICHOL MONTERROSO MD Diagnosis: Allergic rhiniti s, unspecified Take one four times a day as needed Last Documented On 7 12:35PM By NICHOL MONTERROSO MD ; [facility] Albuterol Sulfate (2.5 MG/3ML) 0.083% Nebulization solution 11/29/2016 - 04/15/2017 Provider: NICHOL MONTERROSO MD Diagnosis: Acute bronchitis , unspecified as directed one neb treatmen t every 4-6 hrs as needed for bronchospasm Last Documented On 04/15/2017 5:04PM By NICHOL MONTERROSO MD ; [facility] Nicasio 5-325 MG Tablet 11/29/2016 - 06/04/2018 Provider : Diagnosis: one tab po q 6 hours Last Documented On 8 11:20AM By GLORIA GEE ; [facility] Breo Ellipta 200-25 MCG/INH Aerosol Powder Breath Activated 10/31/2016 - 04/23/2017 Provider: NICHOL MONTERROSO MD Diagnosis: Severe persisten t asthma with (acute) exacerbation 1 inhalation daily Last Documented On 04/23/2017 3:24PM By NICHOL MONTERROSO MD ; [facility] PredniSONE 20 MG Tablet 08/10/2016 - 11/29/2016 Provider: NICHOL MONTERROSO MD Diagnosis: Acute pharyngiti s, unspecified 2 tab po qd x 4d, 1 tab po q day x 4d, 1/2 tab daily x 4d, 1/4 tab daily x4d Last Documented On 11/29/2016 3:34PM By GLORIA GEE ; [facility] Zithromax 500 MG Tablet 08/10/2016 - 11/29/2016 Provider: NICHOL MONTERROSO MD Diagnosis: Acute pharyngiti s, unspecified One tablet daily Last Documented On 11/29/2016 3:34PM By GLORIA GEE ; [facility] Xanax 1 MG Tablet 08/10/2016 - 11/29/2016 Provider: NICHOL MONTERROSO MD Diagnosis: Anxiety disorder , unspecified One tablet twice a day Last Documented On 11/29/2016 3:34PM By GLORIA GEE ; [facility] HydrOXYzine HCl 25 MG Tablet 08/10/2016 - 11/29/2016 Provider: NICHOL MONTERROSO MD Diagnosis: Allergic rhiniti s, unspecified Take one four times a day as needed Last Documented On 11/29/2016 3:53PM By NICHOL MONTERROSO MD ; [facility] ProAir HFA 108 (90 Base) MCG/ACT Aerosol Solution 08/10/2016 - 11/29/2016 Provider: NICHOL MONTERROSO MD Diagnosis: Severe persisten t asthma with (acute) exacerbation 2 puffs four times a day as needed Last Documented On 11/29/2016 3:53PM By NICHOL MONTERROSO MD ; [facility] Albuterol Sulfate (2.5 MG/3ML) 0.083% Nebulization solution 08/10/2016 - 11/29/2016 Provider: NICHOL MONTERROSO MD Diagnosis: Acute bronchitis , unspecified as directed one neb treatmen t every 4-6 hrs as needed for bronchospasm Last Documented On 11/29/2016 3:53PM By NICHOL MONTERROSO MD ; [facility] ProAir HFA 108 (90 Base) MCG/ACT Aerosol, solution 05/10/2016 - 08/10/2016 Provider: NICHOL MONTERROSO MD Diagnosis: Severe persisten t asthma with (acute) exacerbation 2 puffs four times a day as needed Last Documented On 08/10/2016 4:17PM By NICHOL MONTERROSO MD ; [facility] HydrOXYzine HCl 25 MG Tablet 05/10/2016 - 08/10/2016 Provider: NICHOL MONTERROSO MD Diagnosis: Allergic rhiniti s, unspecified Take one four times a day as needed Last Documented On 08/10/2016 4:17PM By NICHOL MONTERROSO MD ; [facility] Breo Ellipta 200-25 MCG/INH Aerosol Powder Breath Activated 04/25/2016 - 10/31/2016 Provider: NICHOL MONTERROSO MD Diagnosis: Severe persisten t asthma with (acute) exacerbation 1 inhalation daily Last Documented On 10/31/2016 1:27PM By NICHOL MONTERROSO MD ; [facility] ZyrTEC Allergy 10 MG Tablet 04/25/2016 - 08/10/2016 Pr ovider: Diagnosis: Last Documented On 08/10/2016 4:05PM By GLORIA GEE ; [facility] Albuterol Sulfate (2.5 MG/3ML) 0.083% Nebulization solution 04/25/2016 - 08/10/2016 Provider: NICHOL MONTERROSO MD Diagnosis: Acute bronchitis , unspecified as directed one neb treatmen t every 4-6 hrs as needed for bronchospasm Last Documented On 08/10/2016 4:17PM By NICHOL MONTERROSO MD ; [facility] Singulair 10 MG Tablet 04/25/2016 - 11/29/2016 Provider: NICHOL MONTERROSO MD Diagnosis: Severe persisten t asthma with (acute) exacerbation One tablet daily Last Documented On 11/29/2016 3:53PM By NICHOL MONTERROSO MD ; [facility] PredniSONE 20 MG Tablet 04/25/2016 - 05/10/2016 Provider: NICHOL MONTERROSO MD Diagnosis: Acute bronchitis , unspecified as directed 1 tab po q day x 4d, 1/2 tab daily x 4d, 1/4 tab daily x4d Last Documented On 05/10/2016 2:12PM By GLORIA GEE ; [facility] Flonase Allergy Relief 50 MCG/ACT Suspension 04/25/2016 - 07/02/2018 Provider: NICHOL MONTERROSO MD Diagnosis: Allergic rhiniti s, unspecified as directed 2 sprays each side daily Last Documented On 07/02/2018 3:49PM By NICHOL MONTERROSO MD ; [facility] Symbicort 160-4.5 MCG/ACT Aerosol 03/05/2016 - 016 Provider: Diagnosis: one puff BID #1 1RF called into [facility]. sm Last Documented On 05/10/2016 2:08PM By GLORIA GEE ; [facility] Albuterol Sulfate (2.5 MG/3M L) 0.083% Nebulization solution 02/21/2016 - 04/25/2016 Provider: Diagnosis: one vial q 4 hour PRN Qty box 2RF at [facility]. sm Last Documented On 04/25/2016 3:11PM By [email or web address] ; [facility] Tylenol 325 MG Tablet 02/21/2016 - 11/29/2016 Provider : Diagnosis: Last Documented On 11/29/2016 3:34PM By GLORIA GEE ; [facility] Mucinex Sinus-Max Congestion 5-325-200 MG Tablet 02/21/2016 - 04/25/2016 Provider: Diagnosis: one q 4 hours Last Documented On 04/25/2016 3:20PM By GLORAI GEE ; [facility] Zithromax 500 MG Tablet 02/21/2016 - 04/25/2016 Provid er: Diagnosis: Last Documented On 04/25/2016 3:21PM By GLORIA GEE ; [facility] PredniSONE 20 MG Tablet 02/20/2016 - 04/25/2016 Provider: NICHOL MONTERROSO MD Diagnosis: Severe persisten t asthma with (acute) exacerbation 3 tab qd x2d, 2.5 tab qd x 2 d, 2 tab qd x 2d, 1.5 tab qd x 2d, 1 tab qd x 4d, 1/2 tab x 4d, 1/4 tab x 4d. Last Documented On 04/25/2016 3:21PM By GLORIA GEE ; [facility] PredniSONE 20 MG Tablet 02/16/2016 - 04/25/2016 Provid er: Diagnosis: take one tab po TID x 2d, 2 tab qd x 2d, one tab po qd x 4d, then 1/2 tab qd for 4 d and 1/4 tab po qd x 4d Last Documented On 04/25/2016 3:09PM By [email or web address] ; [facility] Promethazine HCl 25 MG Tablet 02/16/2016 - 02/21/2016 Provider: Diagnosis: Last Documented On 02/21/2016 9:28AM By GLORIA GEE ; [facility] Cephalexin 500 MG Tablet 02/16/2016 - 04/25/2016 Provi eliseo: Diagnosis: one cap po TID Last Documented On 04/25/2016 3:10PM By [email or web address] ; [facility] Xanax 1 MG Tablet 02/16/2016 - 08/10/2016 Provider: NICHOL MONTERROSO MD Diagnosis: Anxiety disorder , unspecified One tablet twice a day Last Documented On 08/10/2016 4:17PM By NICHOL MONTERROSO MD ; [facility] Levaquin 750 MG Tablet 02/08/2016 - 02/16/2016 Provider: [facility]-BC Diagnosis: Acute bronchitis , unspecified One tablet daily Last Documented On 02/16/2016 3:03PM By GLORIA GEE ; [facility] PredniSONE 20 MG Tablet 02/08/2016 - 02/16/2016 Provider: KAY [facility]OLDSTEIN [facility]- Diagnosis: Acute bronchitis , unspecified One tablet twice a day Last Documented On 02/16/2016 3:04PM By GLORIA GEE ; [facility] Albuterol Sulfate (2.5 MG/3ML) 0.083% Nebulization solution 02/08/2016 - 04/25/2016 Provider: KAY GOLDSTEIN [facility]- Diagnosis: Acute bronchitis , unspecified as directed one neb treatmen t every 4-6 hrs as needed for bronchospasm Last Documented On 04/25/2016 3:46PM By NICHOL MONTERROSO MD ; [facility] Medications Administered Includes: Administered Medications in patient's chart Medications Administered Diagnosis Date Pro vider Albuterol Sulfate (2.5 MG/3M L) 0.083% IN NEBU 02/08/2016 KAY GOLDSTEIN F -BC Last Documented On 6 1:54PM By [email or web address] ; [facility] Results Includes: Results from 10/08/2024 through 10/08/2025 No Results Recorded For Specified Dates History of Present Illness History of Present Illness not supported for this document type No History of Present Illness Recorded Social History Description Last Updated Tobacco non-user 08/14/2023 Last Documented On 3 3:51PM ; [facility] 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 Last Documented On 3 9:35AM ; [facility] Former smoker QUIT 8-9 years ago Last Documented On 1 1:48PM ; [facility] Smoking Status Unknown Medical History Includes: Medical History in patient's chart Description Last Updated Allergies: penicillin, propo xyphene ~Surgeries : 2 , knee facture age 13, ~Illnesses: Poly-cystic kidney disease, COPD 02/17/2016 Last Documented On 6 12:17AM ; [facility] Family History Includes: Family History in patient's chart Description Last Updated Mother in good health and denies signifi cant illness 12/03/2017 Last Documented On 8 7:42PM ; [facility] Father in good health and denies signifi cant illness 12/03/2017 Last Documented On 8 7:42PM ; [facility] Review of Systems Review of Systems not supported for this document type No Review of Systems Recorded Mental Status Description Oriented to time, place, and person Functional Status No Functional Status Recorded Physical Exam Physical Exam not supported for this document type No Physical Exam Recorded Immunizations Includes: Immunizations in patient's chart Vaccine Dose # Date Site Reaction(s) Status Source COVID-19 Pfizer 1 02/11/2021 Complete (Rep orted) Patient Last Documented On 1 4:34PM ; [facility] COVID-19 Pfizer 2 03/04/2021 Complete (Rep orted) Patient Last Documented On 1 4:34PM ; [facility] Influenza (Quadrivalent) PF 0.5ml 1 08/17/2019 Complete (Reported) Patient Last Documented On 9 10:59AM ; [facility] Influenza (Quadrivalent) PF 0.5ml 2 08/28/2020 Left Deltoid Complete (Administered) [facility] Last Documented On 0 12:53PM ; [facility] Influenza (Quadrivalent)36 m o.& older PF 0.5ml (SD) 1 02/13/2016 Complete (Reported) Patie nt Last Documented On 6 3:31PM ; [facility] Pneumococcal Polyvalent (PPV23) 1 08/17/2019 Complete (Reported) Patient Last Documented On 9 10:59AM ; [facility] Prevnar (PCV13) 1 10/23/2017 Right Arm Complete (A dministered) [facility] Last Documented On 7 4:15PM ; [facility] Allergies Includes: Active, inactive, and resolved Allergies Substance Type Reaction Onset Date Resolved Date Statu s Pneumococcal Vaccines Allergy Hives / Ur ticaria, Diarrhea / Diarrheal disorder, Shortness of Breath / Dyspnea, throat swelling 09/23/2019 Active Last Documented On 3 3:38PM ; [facility] Penicillins Allergy Skin Rashes / Er uption of skin, Hives / Urticaria 02/08/2016 Active Last Documented On 3 3:38PM ; [facility] MUSHROOMS Allergy Shortness of Tori ath / Dyspnea 10/01/2022 Active Last Documented On 08/14/2023 3:38PM ; [facility] Note: throat swelling Levaquin Allergy Asthma / Allergi c asthma, Shortness of Breath / Dyspnea 04/25/2016 Active Last Documented On 08/14/2023 3:38PM ; [facility] Note: HEART RHYTHM IRREGULAR Darvocet-N 100 Allergy Skin Rashes / Eruption of skin, Hives / Urticaria 02/16/2016 Active Last Documented On 3 3:38PM ; [facility] Insurance Includes: Active Insurance Policies Plan Name Member ID Group # Subscriber Relationship Effect chani Dates 1 - [facility] 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
--- OUTSIDE RECORDS SUMMARY | 2025-10-08 12:48 | XMS_ITS | Continuity of Care Document ---
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 Due to elevated blood pressure, losartan is now rx'd. [email or web address] Not available 10/08/2025 12:41:34 Plan of Treatment Reminders Order Date Submit Date Provider Last Modified By Organization Details Last Modified Time Details Appointments NEW PATIENT 30 2025 01:00P MARIO Burch Not available Not available Not available ANY 15 2025 03:15P Colton Villarreal MD Not available Not available Not available Lab CBC 2024 [facility] (Centralized Electronic Ordering - All Locations), Patient Can Go To The Location Of Their Choice, [id number] 10/06/2025 17:12:21 lipid panel, serum 2024 025 [facility] (Centralized Electronic Ordering - All Locations), Patient Can Go To The Location Of Their Choice, [id number] 10/06/2025 17:12:19 CMP, serum or plasma 2024 025 [facility] (Centralized Electronic Ordering - All Locations), Patient Can Go To The Location Of Their Choice, [id number] 10/06/2025 17:12:20 HbA1c (hemoglob in A1c), blood 2024 025 [facility] (Centralized Electronic Ordering - All Locations), Patient Can Go To The Location Of Their Choice, [id number] 10/06/2025 17:12:20 TSH, ultra-sen sitive, serum 2024 [facility] (Centralized Electronic Ordering - All Locations), Patient Can Go To The Location Of Their Choice, [id number] 10/06/2025 17:12:20 Referral nephrolog ist referral 2024 [email or web address] Not available 10/06/2025 16:52:36 Procedures None recorded. Surgeries None recorded. Imaging None recorded. Medication Orders sertralin e 50 mg tablet 2024 [facility]armacy #[id number], [address], [place], [address], 10/06/2025 16:45:34 losartan 25 mg tablet 2024 [facility] #[id number], [address], [place], [address], 10/06/2025 16:53:24 hydroxyzi ne HCl 10 mg tablet 2024 [facility]acy #[id number], [address] , [place], [address], 10/06/2025 16:50:18 Patient TargetsNo targets recorded. 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 Referring Physician: Oc Villarreal, Family Medicine, Encounter Date: 10/06/2025 Problems Name Problem SNOMED Code Status Onset Date Resolution Date Notes Provider Name and Address Organization Details Recorded Time Autosomal dominant polycystic kidney disease 563144824 Active 2022 OSMANI OROZCO DO Attn: [place] alvares,[address] [facility], [place], [address], [place] [facility] 3 16:42:06 Essential hypertension 83337887 Active 2022 OSMANI OROZCO DO Attn: [place] dia,[address] [facility], [place], [address], [place] [facility] 3 16:42:45 Allergic rhinitis 67761692 Active 2022 OSMANI OROZCO DO Attn: [place] dia,[address] [facility], [place], [address], [place] [facility] 3 16:49:10 Hypokalemia 46796360 Active 2022 OSMANI OROZCO DO Attn: [place] alvares,[address] [facility], [place], [address], [place] [facility] 3 16:49:23 Cobalamin deficiency 741799070 Active 2022 OSMANI OROZCO DO Attn: [place] alvares,[address] [facility], [place], [address], [place] [facility] 3 16:51:25 Moderate persistent asthma 913967864 Active 2022 OSMANI OROZCO DO Attn: [place] dia,[address] [facility], [place], [address], [place] [facility] 3 16:42:06 Chronic kidney disease stage 3B 013979293 Active 2022 2 - 1.7/41 2 - 1.6/37 11/2022 - 1.8/32 06/2023 - 1.86/2 9 07/2023 - 2.15/2 8 3 - 1.87/3 3 OSMANI OROZCO DO Attn: [place] dia,[address] [facility], [place], [address], [place] [facility] 3 12:12:53 Hypophosphatem ia 0204816 Active 2022 OSMANI OROZCO DO Attn: Accountin g,[address] [facility], [place], [address], [place] [facility] 3 12:09:19 Problem Notes None recorded. Procedures Surgical History Date Name Laterality Status Provider Name and Address Organization Details Recorded Time 8 Date of Last Pap Smear completed OSMANI OROZCO DO Attn: Accounting,[address] [facility], [place], [address], [place] [facility] 07/05/2023 16:57:27 5 delivery completed OSWALD Irving - [facility] 07/05/2023 16:25:12 Imaging Results None recorded. Procedure Notes None recorded. Medical Equipment None Reported. Allergies Allergen ID Allergen Name Allergen Category Reaction Reaction Severity Criticality Documentation Date Start Date Code Code System Note Provider Name and Address Organization Details Recorded Time 602264 cultivate d mushroom extract food,medi cation facial swelling severe high 07/05/2023 55747 17 RxNorm OSWALD [place], [place] - [facility] 3 16:22:15 989125 Diflucan medicatio n hives Not available Not available 07/05/202330177 3 RxNorm OSWALD [place], [place] - [facility] 3 16:26:20 695618 Levaquin medicatio n chest pain severe high 07/05/2023 90074 2 RxNorm OSMANI OROZCO DO Attn: Accountin g,[address] [facility], [place], [address], [place] [facility] 3 16:41:21 289346 losartan medicatio n abdominal pain diarrhea severe moderate Not available 11/13/2023 85216 RxNorm Oc Villarreal MD Attn: Accountin g,[address] [place], [address], [place] [facility] 5 16:53:31 206596 Product containin g penicilli n (product) medicatio n hives rash Not available Not available Not available 10/04/20252015 81093 8001 SNOMED Not Available [facility]vis - External Data Service - prod 13:24:48 934367 fluconazo le medicatio n hives Not available Not available 10/04/20252022 4450 RxNorm Not Available [facility] [employer] External Data Service - prod 13:24:50 829761 levofloxa skinny medicatio n other Not available [facility] 10/04/20252022 36887 RxNorm Chest Pain (Lizy re) Not Available [facility] [employer] External Data Service - prod 13:24:50 [id number] propoxyph anayeli medicatio n hives Not available Not available 10/04/20252017 8785 RxNorm Not Available [facility] [employer] External Data Service - prod 13:25:29 Medications Name Sig Start Date Stop Date Status Note LastModified by Organization Details LastModified Time Prescriptio n - Prior Authorizati on Request active Not Available Not Available N ot Available nifedipine ER 30 mg tablet,exte nded release 24 hr TAKE 1 TABLET BY MOUTH EVERY DAY 01/12 completed Not Available Not Available Not Available cyclobenzap rine 10 mg tablet TAKE 1 TABLET BY MOUTH 3 TIMES A DAY FOR 15 DAYS NEEDED active Not Available Not Available No t Available albuterol sulfate 2.5 mg/3 mL (0.083 %) solution for nebulizatio n USE 3 ML VIA NEBULIZER EVERY 6 HOURS NEEDED FOR WHEEZING 07/18 completed Not Available Not Available Not Available azithromyci n 250 mg tablet TAKE 2 TABLETS BY MOUTH FOR 1 DAY DIRECTED THEN TAKE 1 TABLET BY MOUTH EVERY DAY FOR 4 DAYS 09/10 completed Not Available Not Available Not Available metoprolol succinate ER 50 mg tablet,exte nded release 24 hr TAKE 1 TABLET BY MOUTH EVERY DAY active Not Available Not Available No t Available hydrocodone 5 mg-acetamin ophen 325 mg tablet TAKE 1 TABLET BY MOUTH EVERY 6 HOURS NEEDED FOR MODERATE TO SEVERE PAIN 12/16 completed Not Available Not Available Not Available Debrox 6.5 % ear drops INSTILL 5 DROPS INTO AFFECTED EAR BY OTIC ROUTE DAILY FOR 5 DAYS 07/06 completed Not Available Not Available Not Available acetaminoph en 300 mg-codeine 30 mg tablet Take 1 tablet 3 times a day by oral route as needed for 7 days. 04/08 completed Not Available Not Available Not Available amlodipine 5 mg tablet TAKE 1 TABLET BY MOUTH EVERY MORNING. MAKE APPOINTME NT 07/05 completed Not Available Not Available Not Available potassium chloride ER 20 mEq tablet,exte nded release(par t/cryst) TAKE 1 TABLET BY MOUTH DAILY WITH BREAKFAST FOR 15 DAYS 07/06 completed Not Available Not Available Not Available baclofen 10 mg tablet TAKE 1 TABLET BY MOUTH THREE TIMES A DAY NEEDED active Not Available Not Available No t Available amlodipine 10 mg tablet TAKE 1 TABLET BY MOUTH EVERY DAY 07/06 completed Not Available Not Available Not Available benzonatate 100 mg capsule TAKE 1 CAPSULE BY MOUTH THREE TIMES A DAY FOR 7 DAYS 07/06 completed Not Available Not Available Not Available doxycycline monohydrate 100 mg capsule Take 1 capsule twice a day by oral route for 7 days. 07/27 completed Not Available Not Available Not Available losartan 25 mg tablet Take 1 tablet every day by oral route 2024 active Not Available Not Available Not Avai lable sertraline 25 mg tablet TAKE 1 TABLET BY MOUTH EVERY DAY 10/06 completed Not Available Not Available Not Available budesonide 0.5 mg/2 mL suspension for nebulizatio n USE 1 VIAL (2 ML) VIA NEBULIZER TWICE DAILY active Not Available Not Available No t Available montelukast 10 mg tablet TAKE 1 TABLET BY MOUTH EVERY DAY active Not Available Not Available No t Available K-Phos-Neut ral 250 mg tablet Take by oral route for 7 days. 04/08 completed Not Available Not Available Not Available metoprolol succinate ER 25 mg tablet,exte nded release 24 hr TAKE 1 TABLET BY MOUTH EVERY DAY active Not Available Not Available No t Available levalbutero l 1.25 mg/3 mL solution for nebulizatio n INHALE 3 ML EVERY 8 HOURS BY NEBULIZAT ION ROUTE NEEDED FOR 30 DAYS. active Not Available Not Available No t Available cefuroxime axetil 500 mg tablet TAKE 1 TABLET BY MOUTH TWICE DAILY 07/05 completed Not Available Not Available Not Available methylpredn isolone 4 mg tablets in a dose pack FOLLOW PACKAGE DIRECTION S 10/01 completed Not Available Not Available Not Available albuterol sulfate HFA 90 mcg/actuati on aerosol inhaler INHALE 2 PUFFS 4 TIMES A DAY NEEDED active Not Available Not Available No t Available nifedipine ER 60 mg tablet,exte nded release Take 1 tablet every day by oral route for 90 days. 07/06 completed Not Available Not Available Not Available hydroxyzine HCl 10 mg tablet Take 1 tablet 3 times a day by oral route as needed. 2024 active Not Available Not Available Not Avai lable ondansetron 4 mg disintegrat ing tablet DISSOLVE ONE TABLET BY MOUTH EVERY 8 HOURS NEEDED FOR NAUSEA FOR UP TO 5 DAYS 07/06 completed Not Available Not Available Not Available cefdinir 300 mg capsule TAKE 1 CAPSULE BY MOUTH EVERY 12 HOURS 12/18 completed Not Available Not Available Not Available fluticasone propionate 50 mcg/actuati on nasal spray,suspe nsion SPRAY ONCE IN EACH NOSTRIL TWICE DAILY active Not Available Not Available No t Available sertraline 50 mg tablet Take 1 tablet every day by oral route for 90 days. 2024 active Not Available Not Available Not Avai lable azithromyci n 500 mg tablet TAKE 1 TABLET BY MOUTH DAILY FOR 3 DAYS 07/05 completed Not Available Not Available Not Available Phos-NaK 280 mg-160 mg-250 mg oral powder packet DISSOLVE CONTENTS OF 1 PACKET IN LIQUID AND DRINK BY MOUTH EVERY DAY FOR 14 DAYS 04/08 completed Not Available Not Available Not Available guaifenesin 400 mg tablet Take 1 tablet every 4 hours by oral route as needed for 14 days. 07/06 completed Not Available Not Available Not Available cyclobenzap rine 5 mg tablet TAKE 1 TABLET BY MOUTH THREE TIMES DAILY NEEDED 12/16 completed Not Available Not Available Not Available metoprolol tartrate 25 mg tablet TAKE 1 TABLET BY MOUTH TWICE DAILY 07/05 completed Not Available Not Available Not Available levalbutero l HFA 45 mcg/actuati on aerosol inhaler INHALE 2 PUFFS BY MOUTH EVERY 6 HOURS NEEDED 2024 active Not Available Not Available Not Avai lable Symbicort 160 mcg-4.5 mcg/actuati on HFA aerosol inhaler Inhale 2 puffs twice a day by inhalatio n route for 30 days. 07/06 completed Not Available Not Available Not Available potassium chloride ER 20 mEq tablet,exte nded release TAKE 1 TABLET BY MOUTH TWICE DAILY 07/05 completed Not Available Not Available Not Available Trelegy Ellipta 100 mcg-62.5 mcg-25 mcg powder for inhalation INHALE 1 PUFF BY MOUTH DAILY 07/05 completed Not Available Not Available Not Available Eufemia 0.25 mg-0.035 mg tablet TAKE 1 TABLET BY MOUTH EVERY DAY *PATIENT MUST KEEP SCHEDULED APPOINTME NT 10/06 completed Not Available Not Available Not Available Paxlovid 300 mg (150 mg x 2)-100 mg tablets in a dose pack TAKE 1 DOSE (3 TABLETS PER DOSE) TWICE A DAY FOR 5 DAYS DIRECTED 07/06 completed Not Available Not Available Not Available Vitals Date Recorded Body height Body mass index (BMI) Body weight Oxygen saturation Heart rate Respiratory rate Body temperature Systolic And Diastolic Provider Name and Address Organization Details Last Updated DateTime 160.02 cm 24.1 kg/m2 86482.2 6 g 100 % 73 /min 16 /min 97.5 [degF] 158/89 mm[Hg] Tamara Graham MA [facility] 16:24:51 Social History Question Answer Notes LastModified by Organizat ion Details LastModified Time Tobacco Smoking Status Former Smoker quit in 2011 Tamara Graham [facility] 12/16/2023 11:28:33 Do You Have An Advance Directive? No Information not available 12/16/2023 Are You Blind Or Do You Have Difficulty Seeing? No Information not available 12/16/2023 What Is Your Level Of Caffeine Consumption? None Information not available 07/06/2024 In The 14 Days Before Symptom Onset, Have You Had Close Contact With A Laboratory-confir med COVID-19 While That Case Was Ill? No Information not available 12/16/2023 In The 14 Days Before Symptom Onset, Have You Had Close Contact With A Person Who Is Under Investigation For COVID-19 While That Person Was Ill? No Information not available 12/16/2023 Have You Been To An Area Known To Be High Risk For COVID-19? No Information not available 12/16/2023 Are You Deaf Or Do You Have Serious Difficulty Hearing? No Information not available 12/16/2023 What Type Of Diet Are You Following? REGULAR Information not available 12/16/2023 Are There Any Guns Present In Your Home? No Information not available 12/16/2023 What Was The Date Of Your Most Recent Tobacco Screening? 12/21/2024 Information not available 12/21/2024 How Many Children Do You Have? 2 Information not available 12/16/2023 What Is Your Current Pack Years? 10-19packye ars Information not available 12/16/2023 Do You Use Protection During Sex? Always Information not available 12/16/2023 What Is Your Relationship Status? Information not available 07/05/2023 Do You Use Your Seat Belt Or Car Seat Routinely? Yes Information not available 12/16/2023 Are You Sexually Active? Yes Information not available 12/16/2023 Do You Have Smoke And Carbon Monoxide Detectors In Your Home? Yes Information not available 07/05/2023 At What Age Did You Start Smoking Tobacco? 21 Information not available 12/16/2023 Are You Passively Exposed To Smoke? No Information no t available 12/16/2023 How Much Tobacco Do You Smoke? No Information not available 12/16/2023 Do You Use Sunscreen Routinely? Yes Information not available 12/16/2023 Has Tobacco Cessation Counseling Been Provided? No Information not available 07/05/2023 On What Date Was Tobacco Cessation Counseling Provided? 12/21/2024 Information not available 12/21/2024 How Many Years Have You Smoked Tobacco? 15 Information not available 12/16/2023 Sex: Female Functional Status Question Answer Note LastModified by Organizat ion Details LastModified Time Do you use any illicit or recreational drugs? No Information not available 07/05/2023 Do you or have you ever used any other forms of tobacco or nicotine? No Information not available 07/05/2023 What is your level of alcohol consumption? Occasional Information not available 07/05/2023 Are you currently employed? Yes Information not available 08/16/2023 Are you able to care for yourself independently? 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 Occasional Information not available 12/16/2023 Mental Status Question Answer Note LastModified by Organization D etails LastModified Time Do you feel stressed (tense, restless, nervous, or anxious, or unable to sleep at night)? [id number] Information not available 12/16/2023 Family History Relationship Description Onset Age of this Age Resolved Age Notes LastModified by Organization Details LastModified Time Father Kidney disease etodaroma Not available 2022 16:22:54 Father Hypoglycemia etodaroma Not avai lable 07/05/2023 16:23:02 Paternal Grandfather Asthma etodaroma Not available 06/12 16:23:24 Mother Essential hypertension etodaroma Not available 16:23:44 Notes:No knew Reported 4, 03/04/24, 07/06/24, 12/21/24 Medical History No medical history recorded. Gynecological History Statement/Question Response Flow Moderate Date of LMP 04/07/2024 Frequency of Cycle (Q days) 28 Menses Monthly Y Date of Last Pap Smear 11/11/2017 Duration of Flow (days) 5 Age at Menarche 9 Current Control Method BCPs Age at First Child 19 LMP Definite Obstetrics History GPAL:G 2 P 2 0 0 2 Type Value Full Term 2 Living 2 Total 2 Immunizations Vaccine Type Date Status Note Provider Nam shalonda and Address Organization Details Recorded Time Influenza, recombinant, quadrivalent, PF 1 completed OSMANI OROZCO DO Attn: [address] [place], [place], [address] [place] [address], [place] [facility] 07/18/2023 17:34:47 MMR 3 completed OSMANI OROZCO DO Attn: Accounting,[address] [facility], [place], [place], [address] [place] [address], [place] [facility] 07/18/2023 17:34:47 COVID-19, mRNA, LNP-S, PF, 30 mcg/0.3 mL dose 1 completed OSMANI OROZCO DO Attn: Accounting,[address] [facility], [place], [place], [address] [place] [address], [place] [facility] 07/18/2023 17:34:47 COVID-19, mRNA, LNP-S, PF, 30 mcg/0.3 mL dose 1 completed OSMANI OROZCO DO Attn: Accounting,[address] [facility], [place], [place], [address] [place] [address], [place] [facility] 07/18/2023 17:34:47 COVID-19, mRNA, LNP-S, PF, 30 mcg/0.3 mL dose 1 completed OSMANI OROZCO DO Attn: Accounting,[address] [facility], [place], [place], [address] [place] [address], [place] [facility] 07/18/2023 17:34:47 COVID-19, mRNA, LNP-S, bivalent, PF, 30 mcg/0.3 mL dose 2 completed OSMANI OROZCO DO Attn: Accounting,[address] [facility], [place], [place], [address] [place] [address], [place] [facility] 07/18/2023 17:34:47 pneumococcal polysaccharide PPV23 9 completed OSMANI OROZCO DO Attn: Accounting,[address] [facility], [place], [place], [address] [place] [address], [place] [facility] 07/18/2023 17:34:47 Tdap 8 completed OSMANI OROZCO DO Attn: Accounting,[address] [facility], [place], [place], [address] [place] [address], [place] [facility] 07/18/2023 17:34:47 Pneumococcal conjugate PCV 13 7 completed OSMANI OROZCO DO Attn: Accounting,[address] [facility], [place], [place], [address] [place] [address], [facility] - [facility] 07/18/2023 17:34:47 Influenza, split virus, trivalent, PF 6 completed OSMANI OROZCO DO Attn: Accounting,[address] [facility], [place], [place], [address] [place] [address], [facility] - [facility] 07/18/2023 17:34:47 Influenza, split virus, quadrivalent, PF 2 completed OSMANI OROZCO DO Attn: Accounting,[address] [facility], [place], [place], [address] [place] [address], [facility] - [facility] 07/18/2023 17:34:47 Influenza, split virus, quadrivalent, PF 9 completed OSMANI OROZCO DO Attn: Accounting,[address] [facility], [place], [place], [address] [place] [address], [facility] - [facility] 07/18/2023 17:34:47 Influenza, split virus, quadrivalent, PF 7 completed OSMANI OROZCO DO Attn: Accounting,[address] [facility], [place], [place], [address] [place] [address], [facility] - [facility] 07/18/2023 17:34:47 Influenza, recombinant, quadrivalent, PF 3 completed OSMANI OROZCO DO Attn: Accounting,[address] [facility], [place], [place], [address] [place] [address], [place] [facility] 09/12/2023 12:09:32 COVID-19, mRNA, LNP-S, PF, tawnya-sucrose, 30 mcg/0.3 mL 3 completed OSMANI OROZCO DO Attn: Accounting,[address] [facility], [place], [place], [address] [place] [address], [place] [facility] 10/01/2023 17:27:55 zoster recombinant 4 completed OSWALD [place], [place] [facility] 12/21/2024 10:05:06 Influenza, split virus, trivalent, PF 4 completed Polina Green [place], [place] [facility] 12/21/2024 10:05:06 zoster recombinant 5 completed Not Available [facility] 10/06/2025 16:11:56 Pneumococcal conjugate PCV21, polysaccharide [id number] conjugate, PF 5 completed Not Available [facility] 10/06/2025 16:11:56 Influenza, recombinant, trivalent, PF 5 completed Not Available [facility] 10/06/2025 16:11:56 Past Encounters Encounter ID Performer Location Encounter Start Date Encounter Closed Date Diagnosis/Indication Diagnosis SNOMED-CT Code Diagnosis ICD10 Code Diagnosis IMO Codes Diagnosis Note [id number] MD Marcela Fish 14 IM [address] [facility] [place] [address] 10/06/2025 16:01:34 10/08/2025 12:43:14 Menopausal symptom 45245357 N95.1 Essential hypertension 85382521 I10 Anxiety 94936144 F41.9 38971 Screening for malignant neoplasm of colon 099665224 Z12.11 509197 Pt will consider a cologuard when she turns 49 years of age. Screening mammography 24 122194 Z12.31 41661446 pt declines this Chronic ki dney disease 070451072 N18.[id number]'s care; due to this, pt is not able to take NSAIDs...w hich we would otherwise prescribe Dyslipidemia 145293227 E 78.5 843057 will take crestor if numbers are high Abrasion o f skin of right knee 4505959426 4935864 S80.211A 8097813 UTD on tetanus boosters; pt declines dressing at visit Health Concerns Section Related Observation LastModified by Organization Detai ls LastModified Time None Recorded Concern Status LastModified by Organization Details LastModified Time None Recorded Payers Encounter Date Sequence Insurance Name Policy Number Policy Dawson Covered Member ID Dawson Member ID Guarantor Name 10/06/2025 1 [facility] [id number] Kehinde Wen [id number] Deborah Wen Notes Date Note Type Note Provider Name and Address Organization Details Recorded Time 10/06/2025 text/html ROS as noted in the HPI Regular checkup. Pt states that she incurred an injury at work earlier today. Oc Villarreal MD Attn: Accounting,[address] [facility], [place], [address], [facility] - [facility] 10/08/2025 12:43:12 OBGyn Episode No OBEpisode recorded.
--- OUTSIDE RECORDS SUMMARY | 2025-10-08 12:48 | XMS_ITS ---
Care Plan - [facility] Created on: October 08, 2025 BOB CARTER : 1975 Sex: Female Author Organization [facility] Address [address] [place] [address] Phone Care Team Providers Care Physician Allergist Immunologist Name Role Phone JCARLOS NOLAN DO Primary Care Provider [phone]
--- OUTSIDE RECORDS SUMMARY | 2025-10-08 12:48 | XMS_ITS | Clinical Summary ---
Author Organization [facility] Address [address] [place] [address] Care Team Providers Care Academic Manager Name Role Phone Oc Villarreal MD Primary Care Provider [phone] Allergies Active Allergy Reactions Criticality Noted Date Comments Propoxyphene Hives 06/12/2018 Levofloxacin Palpitations 11/14/2018 CARDIAC ARRHYTHMIA Penicillins Hives,Swelling 11/18/2016 Medications montelukast (SINGULAIR) 10 MG Tablet Take 10 mg by mouth every evening. Active hydrOXYzine (ATARAX) 25 MG Tablet Take 10 mg by mouth every 6 hours as needed for Itching. Active albuterol 108 (90 Base) MCG/ACT Aerosol Solution take 2 Puffs by inhalation every 4 hours as needed for Wheezing. Active fluticasone (FLONASE) 50 MCG/ACT Suspension 1-2 Sprays by Nasal route daily. Use in each nostril as directed. Active Multiple Vitamins-Mineral s (MULTIVITAMIN PO) Take 1 Tab by mouth daily. Active traMADol (ULTRAM) 50 MG Tablet Take 1 Tab by mouth every 6 hours as needed for Moderate or more severe pain. 10 Tab 0 Active Additional Information Patient not taking.Reported on 07/16/2025 [place]se[place]-3 1000 MG Capsule Take by mouth. Activ e Magnesium 250 MG Tablet Take by mouth. Activ e albuterol (PROVENTIL, VENTOLIN) (2.5 MG/3ML) 0.083% Nebulizer SolnIndications: Mild intermittent asthma without status asthmaticus without complication 3 mL by Nebulization route every 6 hours as needed for Wheezing. 360 mL 3 3 Active Additional Information Patient not taking.Reported on 07/16/2025 budesonide (PULMICORT) 0.5 MG/2ML SuspensionIndica tions:Mild intermittent asthma without status asthmaticus without complication 2 mL by Nebulization route 2 times daily. 120 mL 3 3 Active HYDROcodone-acet aminophen (NORCO) 5-325 MG TabletIndication s:Knee strain, right, initial encounter Take 1 Tablet by mouth every 6 hours as needed for Moderate or more severe pain. 15 Tablet 4 Active Additional Information Patient not taking.Reported on 07/16/2025 sertraline (ZOLOFT) 25 MG Tablet Take 25 mg by mouth daily. 5 Active metoprolol Succinate (TOPROL-XL) 50 MG TABLET SR 24 HR Take 50 mg by mouth daily. Active metoprolol Succinate (TOPROL-XL) 25 MG TABLET SR 24 HR Take 25 mg by mouth daily. Active budesonide-formo terol fumarate (Symbicort) 160-4.5 MCG/ACT Aerosol Symbicort 160-4.5 MCG/ACT Inhalation Aerosol QTY: 1 inhaler Days: 30 Refills: 0 Written: 02/22/20 Patient Instructions: as directed 2 puff bid 0 Active Doxycycline Monohydrate 100 MG Capsule Take 1 capsule twice a day by oral route for 7 days. 5 Active Active Problems Problem Noted Date Diagnosed Date Personal history of tobacco use 06/25/2023 Wheezing 06/25/2023 Asthma without status asthmaticus without compli cation 09/04/2018 Essential (primary) hypertension 09/04/2018 Encounters Date Type Department Care Team Description 07/16/2025 1:40 PM CDT Urgent Care Visit [facility] [place] - [address] [place] [address] Sakshi Almeida, AUTOCUTTER, POWER ENGINEER Non-recurrent acute suppurative otitis media of right ear without spontaneous rupture of tympanic membrane (Primary Dx); Seasonal allergies; Mild intermittent asthma without status asthmaticus without complication Discharge Disposition: Discharged to home or Selfcare 07/16/2025 Travel from Last 3 Months Immunizations Immunization Administration Dates Next Due Influenza Vaccine 02/14/2016 Influenza Vaccine, Quadrivalent, PF 07/28/2022,1 ,08/21/2017 Influenza, Recombinant, Quadrivalent,injectable, Pf 09/07/2021 MMR Vaccine 06/15/1993 Pneumococcal Vaccine - 13 Valent 10/23/2017 Pneumococcal Vaccine Adult - 23 Valent 9 TDAP Vaccine 08/15/2018 Social History Tobacco Use Types Packs/Day Years Used Date Smoking Tobacco: Former Smokeless Tobacco: Never Tobacco Cessation:Counseling Given: Not Answered Alcohol Use Standard Drinks/Week Comments No 0 (1 standard drink = 0.6 oz pur e alcohol) Sexually Active Control Partners Comments Yes Comments No Sex and Gender Information Value Date Recorded Sex Assigned at Not on file Legal Sex Female 10:59 PM CDT Gender Identity Not on file Sexual Orientation Not on file Last Filed Vital Signs Vital Sign Reading Time Taken Comments Blood Pressure 140/93 07/16/2025 2:32 PM CDT Pulse 72 07/16/2025 2:32 PM CDT Temperature 36.8 C (98.2 F) 07/16/2025 2:32 PM CDT Respiratory Rate 16 07/16/2025 2:32 PM CDT Oxygen Saturation 99% 07/16/2025 2:32 PM CDT Inhaled Oxygen Concentration - - Weight 59 kg (130 lb) 12/11/2023 4:00 PM [employer] Height 160 cm (5' 3) 12/11/2023 4:00 PM [employer]OOF [employer] Body Mass Index 23.03 12/11/2023 4:00 PM [employer]OO[employer] Plan of Treatment Health Maintenance Due Date Last Done Comments Hepatitis C Virus (HCV) Screening 1974 Mammogram 1974 Hepatitis B Immunization (1 of 3 - 19+ 3-dose series) 1993 Pap Smear 1995 Cervical Cancer Screening (CCS) 2004 HPV/Cotest 2004 Cologuard 2019 Colonoscopy 2019 Colorectal Cancer Screening 2019 Immunochemical Fecal Occult Blood 2019 Respiratory Syncytial Virus (RSV) Immunization (Adult) (1 - Risk 50-74 years 1-dose series) 2024 Influenza Immunization (#1) 07/12/202507/124, 08/30/2023, 07/28/2022, Additional history exists SARS-COV-2 Immunization ( season) 2025 09/14/2023, 09/15/2022, 09/15/2021, Additional history exists Td Immunization Every 10 Years (Adults With 1 Tdap) 08/15/2028 08/15/2018 DTaP/Tdap/Td Immunization Discontinued 08/15/2018 Pneumococcal Immunization (50+ years) Completed 01/09/2025, 08/17/2019, 10/23/2017 Pneumococcal Immunization Combined Discontinued 01/09/2025, 08/17/2019, 10/23/2017 Zoster Immunization Completed 01/09/2025, Human Papillomavirus (HPV) Immunization Aged Out No longer eligible based on patient's age to complete this topic Meningococcal Immunization (ACWY) Aged Out No longer eligible based on patient's age to complete this topic Rotavirus Immunization Aged Out No lo nger eligible based on patient's age to complete this topic Insurance [facility] [employer] Care Teams Academic Manager Relationship Specialty Start Date End Date Oc Villarreal MD [address] [place] [address] PCP - General Family Medicine 10/28/23
--- OUTSIDE RECORDS SUMMARY | 2025-10-08 12:48 | XMS_ITS | Clinical Summary ---
Author Organization [facility] Address [address] [place] [address] Phone Care Team Providers Care Supervisor [employer]ing [employer] Name Role Phone RAYMUNDOJCARLOS VEGA DO Rhona Primary Care Provider Reason for Visit and Chief Complaint The Chief Complaint is: Med check/follow up, The Chief Complaint is: Check up. She is on Trelegy but read not to take it with an mian-inhibitor. Her BP has increased since starting the trelegy. 170-180. ~She said the tips of her ears felt like they were on fire. She still has the asthma cough. She has been having leg cramps at night when she is in bed. Problems Includes: Problems addressed during this encounter and other active Problems Current Visit Onset Date Resolved Date Provider Conditio n Status Chronic Kidney Disease Stage 3 06/10/2023 ELIO [facility] Active Last Documented On 3 4:43PM ; [facility] Polycystic Kidney 03/15/2022 MARCY RETANA PA-C Active Last Documented On 2 5:32PM ; [facility] Essential Hypertension Benign 06/04/2018 NICHOL SWEET MD Active Last Documented On 8 12:02PM ; [facility] Asthma Severe Persistent with Exacerbation 04/25/2016 NICHOL SWEET MD Active Last Documented On 6 1:02PM ; [facility] Past Visits Onset Date Resolved Date Provider Condition Status Hypokalemia 10/02/2022 MARCY RETANA PA-C A ctive Last Documented On 2 11:30PM ; [facility] Allergic Rhinitis 04/25/2016 NICHOL SWEET MD Active Last Documented On 9 8:56PM ; [facility] Plan of Treatment 1. Will attempt to get Nephrology records from [facility]. 2. Get labs done fasting at [facility], we will call with results. 3. Referring to Dr. De Anda, Pulmonary, in [place]. 4. Starting Metoprolol 25mg BID for HTN. Start checking BP daily, write down results on sheet, bring into next visit. 5. Concerned about kidney function - likely needs to see another Payroll Analyst, will see what previous records said. 6. Low salt diet. Follow up in 1 month. 1) Return to the clinic if condition worsens or new symptoms arise. 2) Patient to call if problem develops. - Last Documented On 06/11/2023 9:04AM ; [facility] Referrals To Diagnosis Automobile And Property Underwriter TAYLOR DE ANDA MD Severe persisten t asthma with (acute) exacerbation Note: in [place] Last Documented On 3 9:37AM ; [facility] Assessments Includes: Assessments from this encounter Findings - I10 - Essential (primary) hypertension - Last Documented On 06/11/2023 9:04AM ; [facility] - J45.51 - Severe persistent asthma with (acute) exacerbation - Last Documented On 06/11/2023 9:04AM ; [facility] - N18.30 - Chronic kidney disease, stage 3 unspecified - Last Documented On 06/11/2023 9:04AM ; [facility] - Q61.3 - Polycystic kidney, unspecified - Last Documented On 06/11/2023 9:04AM ; [facility] Medical Equipment - Implanted Devices Includes: Current Devices No Medical Equipment Recorded Medications Includes: Medications discussed during this encounter and other current Medications Discontinued / Stopped on this date MARCY RETANA PA-C on 05/14/2023 Thanh Delarosa 100-62.5-25 MCG/ACT Inhalation Aerosol Powder Breath Activated Provider: MARCY Busby Diagnosis: Last Documented On 3 4:16PM By Elio MAGANA-C ; [facility] hydrOXYzine HCl 10 MG Oral Tablet Provider: MARCY Busby Diagnosis: Allergic rhiniti s, unspecified Last Documented On 3 4:14PM By Elio ROSA ; [facility] New / Renewed during this visit ELIO ROSA on 06/10/2023 Metoprolol Tartrate 25 MG Oral Tablet Provider: ELIO ROSA 90 day supply: 180 tablet, 1 refills Diagnosis: Essential (primary) hypertension One tablet twice a day Pharmacy: [facility] [address], [phone] - Last Documented On 3 4:49PM By Elio ROSA ; [facility] Current Medications (continue as prescribed) Azithromycin 250 MG Oral Tablet 08/14/2023 Provider: CHEIKH ROSA Diagnosis: Severe persisten t asthma with (acute) exacerbation as directed take 2 tab po qd for 1 day then take 1 tab po qd for 4 days Last Documented On 3 3:54PM By Cheikh ROSA ; [facility] Medrol 4 MG Oral Tablet Therapy Pack 08/14/2023 Provider: CHEIKH ROSA Diagnosis: Severe persisten t asthma with (acute) exacerbation as directed Last Documented On 3 3:54PM By Cheikh ROSA ; [facility] hydrOXYzine HCl 10 MG Oral Tablet 06/11/2023 Provide r: ELIO ROSA Diagnosis: One tablet daily Last Documented On 3 9:10AM By Elio ROSA ; [facility] Estarylla 0.25-35 MG-MCG Oral Tablet 06/11/2023 Provider: ELIO ROSA Diagnosis: Encounter for in itial prescription of contraceptive pills TAKE 1 TABLET BY MOUTH DAILY Last Documented On 3 9:10AM By Elio ROSA ; [facility] Montelukast Sodium 10 MG Oral Tablet 06/11/2023 Provider: ELIO [facility] Diagnosis: Severe persisten t asthma with (acute) exacerbation TAKE 1 TABLET BY MOUTH DAILY Last Documented On 3 9:10AM By Elio ROSA ; [facility] amLODIPine Besylate 10 MG Oral Tablet 06/11/2023 Provider: ELIO MAGANA-C Diagnosis: Essential (prima ry) hypertension One tablet daily Last Documented On 3 9:10AM By Elio GAYTANC ; [facility] Trelegy Ellipta 100-62.5-25 MCG/ACT Inhalation Aerosol Powder Breath Activated 06/11/2023 Provider: ELIO Thomas BOOK REVIEWER-C Diagnosis: INHALE 1 PUFF BY MOUTH DAILY Last Documented On 3 6:49AM By Elio ROSA ; [facility] Fluticasone Propionate 50 MCG/ACT Nasal Suspension 06/11/2023 Provider: ELIO MAGANA-C Diagnosis: Polycystic kidne y, unspecified 1 spray in each notril BID Last Documented On 3 9:10AM By Elio GAYTANC ; [facility] Biotin Plus Keratin 66459-368 MCG-MG Oral Tablet 06/10 Provider: Diagnosis: OTC Last Documented On 3 4:15PM By Elio ROSA ; [facility] Potassium Chloride ER 20 MEQ Oral Tablet Extended Release 10/30/2022 Provider: MARCY Busby Diagnosis: Essential (prima ry) hypertension TAKE 1 TABLET BY MOUTH TWICE DAILY Last Documented On 2 8:20AM By Marcy Retana PA-C ; [facility] Albuterol Sulfate HFA 108 (90 Base) MCG/ACT Inhalation Aerosol Solution 10/01/2022 Provider: MARCY Busby Diagnosis: Severe persisten t asthma with (acute) exacerbation inhale 1-2 puffs every 4-6 h ours as needed Last Documented On 2 4:59PM By Marcy Retana PA-C ; [facility] Dunbar 3 1000 MG Oral Capsule 10/01/2022 Provider: Diagnosis: Last Documented On 10/01/2022 3:47PM By GLENN GEE ; [facility] Daily Value Multivitamin Oral Tablet 10/01/2022 Prov ider: Diagnosis: Last Documented On 10/01/2022 3:48PM By GLENN GEE ; [facility] Albuterol Sulfate (2.5 MG/3ML) 0.083% Inhalation Nebulization solution 04/08/2022 Provider: ELIO ROSA Diagnosis: Severe persisten t asthma with (acute) exacerbation USE 1 VIAL VIA NEBULIZER CHAYITO RY 4 HOURS NEEDED Last Documented On 8:14AM By Elio ROSA ; [facility] Medications Administered Includes: Administered Medications from this encounter No Administered Medications Recorded Vital Signs Includes: Vital Signs from this encounter Vital Name 06/10/2023 04:36P 06/10/2023 03: 56P Blood Pressure Sitting L 176/110 168/110 BP Cuff Size Regular Regular Pulse Rate-Sitting (bpm) 96 Respiration Rate (breaths/min) 24 Temp-Oral (F) 98.6 Height (in) 64 Weight (lb) 128 Body Mass Index 22 Body Surface Area 1.6 Oxygen Saturation (%) 97 Last Documented: On 06/10/2023 4:36PM ; [facility] On 06/10/2023 4:01PM ; [facility] Results Includes: Results discussed during this encounter No Results Recorded For Specified Dates History of Present Illness Includes: History of Present Illness from this encounter RANDOLPH CARTER is a 47 year old female. - Allergy list reviewed - Problem list reviewed - Medication list reviewed Patient is a 47 year old female who presents today for a med check and routine follow up. I havn't seen patient in over 3 years, and never for a check up. She has been seeing Mackenzie Retana, and prior was seeing Dr. Sweet. Patient has polycystic kidney disease and saw kidney specialist in [place] at [facility] in 2016 and again in 2018. No issues with kidney function until around 2020. Many people in her family have polycystic kidney disease. Patient urinates between 4-7 times a day, so normally. Denies swelling in her body. 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 She quit smoking cigarettes in 2011 after smoking off and on X 21 years. Patient has cramping in the calves more so recently at night, only takes Potassium once a day (prescribed twice a day). Uses Albuterol Nebulizer approx twice a week. Patient is on Trelegy for asthma, but still having issues with her breathing. Would like to go back to see Dr. De Anda, Pulmonary, seen him in the past. Uses Flonase BID. BP at home is 160s/70s recently. She denies CP, FERNANDES, dizziness, or any s/s of high BP. 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 Last Documented On 3 9:01AM ; [facility] Former smoker QUIT 8-9 years ago 021 Last Documented On 3 9:01AM ; [facility] Smoking Status Unknown Procedures and Surgical History Includes: Procedures from this encounter Procedures Code Diagnosis Performing Provider Service L ocation Service Date continue current medication Last Documented On 3 4:09PM ; [facility] use of tobacco assessment performed 1000F Last Documented On 3 4:09PM ; [facility] review of medications documented 1160F Last Documented On 3 3:50PM ; [facility] Medical History Includes: Medical History addressed during this encounter Description Last Updated Allergies: penicillin, propo xyphene ~Surgeries : 2 , knee facture age 13, ~Illnesses: Poly-cystic kidney disease, COPD 02/17/2016 Last Documented On 3 9:01AM ; [facility] Family History Includes: Family History addressed during this encounter Description Last Updated Mother in good health and denies signifi cant illness 12/03/2017 Last Documented On 3 9:01AM ; [facility] Father in good health and denies signifi cant illness 12/03/2017 Last Documented On 3 9:01AM ; [facility] Review of Systems Includes: Review of Systems from this encounter Systemic: Not feeling tired. No fever, no chills, no night sweats, and no edema. Head: No headache. Eyes: No vision problems, no itching of the eyes, and no watery discharge from eyes. Otolaryngeal: No hearing loss, no tinnitus, no watery nasal discharge, and not blood-tinged. No nasal passage blockage (stuffiness), no sore throat, and no itchy throat. Cardiovascular: No chest pain or discomfort and no palpitations. Pulmonary: Dyspnea. No supine dyspnea. No cough and no hemoptysis. Wheezing. Gastrointestinal: Normal appetite, no dysphagia, and no heartburn. No nausea, no vomiting, no abdominal pain, and no melena. No diarrhea. Genitourinary: No hematuria, no increase in urinary frequency, and no nocturia. No urinary loss of control and no dysuria. Musculoskeletal: No Limited ROM present and no back pain. Muscle aches /cramping in calves. No localized joint pain and no localized joint stiffness. Neurological: No dizziness, no vertigo, no fainting, no decrease in concentrating ability, and no slurred speech. No sensory disturbances, no tingling, and no numbness. Psychological: No anxiety, no depression, and no sleep disturbances. Skin: No pruritus. No skin lesions and no rash. Mental Status Includes: Mental Status from this encounter Description No disorientation was observ ed The memory was unimpaired No anxiety Functional Status Includes: Functional Status from this encounter No Functional Status Recorded Physical Exam Includes: Physical Exam from this encounter Allergies Includes: Active Allergies Substance Type Reaction Onset Date Resolved Date Statu s Pneumococcal Vaccines Allergy Hives / Ur ticaria, Diarrhea / Diarrheal disorder, Shortness of Breath / Dyspnea, throat swelling 09/23/2019 Active Last Documented On 3 3:38PM ; [facility] Penicillins Allergy Skin Rashes / Er uption of skin, Hives / Urticaria 02/08/2016 Active Last Documented On 3 3:38PM ; [facility] MUSHROOMS Allergy Shortness of Tori ath / Dyspnea 10/01/2022 Active Last Documented On 08/14/2023 3:38PM ; [facility] Note: throat swelling Levaquin Allergy Asthma / Allergi c asthma, Shortness of Breath / Dyspnea 04/25/2016 Active Last Documented On 08/14/2023 3:38PM ; [facility] Note: HEART RHYTHM IRREGULAR Darvocet-N 100 Allergy Skin Rashes / Eruption of skin, Hives / Urticaria 02/16/2016 Active Last Documented On 3 3:38PM ; [facility] Encounters Encounter Provider Location Date Check-In Time Check-Out Time Diagnosis CHECK UP ELIO ROSA [facility]- 06/10/20 23 3:47PM 4:46PM Polycystic Kidney,Chronic Kidney Disease Stage 3,Essential Hypertension Benign,Asthma Severe Persistent with Exacerbation Insurance Includes: Active Insurance Policies Plan Name Member ID Group # Subscriber Relationship Effect chani Dates 1 - [facility] [id number] BOB CARTER Self Clinical Notes Includes: Clinical Notes from this encounter * Progress note Date Encounter Last Documented by 06/10/2023 CHECK UP Last documented on 06/11/2023; 9:04 AM, ELIO ROSA; [facility] Active Problems & Conditions - J30.9 - Allergic Rhinitis - J45.51 - Asthma Severe Persistent with Exacerbation - N18.30 - Chronic Kidney Disease Stage 3 - I10 - Essential Hypertension Benign - E87.6 - Hypokalemia - Q61.3 - Polycystic Kidney Chief Complaint The Chief Complaint is: Check up. She is on Trelegy but read not to take it with an mian-inhibitor. Her BP has increased since starting the trelegy. 170-180. She said the tips of her ears felt like they were on fire. She still has the asthma cough. She has been having leg cramps at night when she is in bed. The Chief Complaint is: Med check/follow up. History of Present Illness BOB CARTER is a 47 year old female. - Allergy list reviewed - Problem list reviewed - Medication list reviewed Patient is a 47 year old female who presents today for a med check and routine follow up. I havn't seen patient in over 3 years, and never for a check up. She has been seeing Mackenzie Retana, and prior was seeing Dr. Sweet. Patient has polycystic kidney disease and saw kidney specialist in [place] at [facility] in 2016 and again in 2018. No issues with kidney function until around 2020. Many people in her family have polycystic kidney disease. Patient urinates between 4-7 times a day, so normally. Denies swelling in her body. 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 She quit smoking cigarettes in 2011 after smoking off and on X 21 years. Patient has cramping in the calves more so recently at night, only takes Potassium once a day (prescribed twice a day). Uses Albuterol Nebulizer approx twice a week. Patient is on Trelegy for asthma, but still having issues with her breathing. Would like to go back to see Dr. De Anda, Pulmonary, seen him in the past. Uses Flonase BID. BP at home is 160s/70s recently. She denies CP, FERNANDES, dizziness, or any s/s of high BP. Current Medication - Albuterol Sulfate (2.5 MG/3ML) 0.083% Inhalation Nebulization solution USE 1 VIAL VIA NEBULIZER EVERY 4 HOURS NEEDED, 30 days, 2 refills - Albuterol Sulfate HFA 108 (90 Base) MCG/ACT Inhalation Aerosol Solution inhale 1-2 puffs every 4-6 hours as needed, 30 days, 5 refills - amLODIPine Besylate 10 MG Oral Tablet TAKE 1 TABLET BY MOUTH DAILY, 90 days, 0 refills - Biotin Plus Keratin 47192-712 MCG-MG Oral Tablet One tablet daily OTC, 0 days, 0 refills - Daily Value Multivitamin Oral Tablet 0 days, 0 refills - Estarylla 0.25-35 MG-MCG Oral Tablet TAKE 1 TABLET BY MOUTH DAILY, 84 days, 3 refills - Flonase Allergy Relief 50 MCG/ACT Nasal Suspension 1 spray in each notril once daily, 30 days, 1 refills - hydrOXYzine HCl 10 MG Oral Tablet One tablet daily 18 days, 0 refills - Montelukast Sodium 10 MG Oral Tablet TAKE 1 TABLET BY MOUTH DAILY, 90 days, 0 refills - Dunbar 3 1000 MG Oral Capsule 0 days, 0 refills - Potassium Chloride ER 20 MEQ Oral Tablet Extended Release TAKE 1 TABLET BY MOUTH TWICE DAILY, 30 days, 2 refills - Trelegy Ellipta 100-62.5-25 MCG/ACT Inhalation Aerosol Powder Breath Activated 1 puff daily, 30 days, 0 refills Past Medical/Surgical History Allergies: penicillin, propoxyphene Surgeries : 2 , knee facture age 13, Illnesses: Poly-cystic kidney disease, COPD. Social History Tobacco use: Former smoker QUIT 8-9 years ago. 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 Allergies - Darvocet-N 100 Reaction: , Hives [...] in good health and denies significant illness Review Of Systems Systemic: Not feeling tired. No fever, no chills, no night sweats, and no edema. Head: No headache. Eyes: No vision problems, no itching of the eyes, and no watery discharge from eyes. Otolaryngeal: No hearing loss, no tinnitus, no watery nasal discharge, and not blood-tinged. No nasal passage blockage (stuffiness), no sore throat, and no itchy throat. Cardiovascular: No chest pain or discomfort and no palpitations. Pulmonary: Dyspnea. No supine dyspnea. No cough and no hemoptysis. Wheezing. Gastrointestinal: Normal appetite, no dysphagia, and no heartburn. No nausea, no vomiting, no abdominal pain, and no melena. No diarrhea. Genitourinary: No hematuria, no increase in urinary frequency, and no nocturia. No urinary loss of control and no dysuria. Musculoskeletal: No Limited ROM present and no back pain. Muscle aches /cramping in calves. No localized joint pain and no localized joint stiffness. Neurological: No dizziness, no vertigo, no fainting, no decrease in concentrating ability, and no slurred speech. No sensory disturbances, no tingling, and no numbness. Psychological: No anxiety, no depression, and no sleep disturbances. Skin: No pruritus. No skin lesions and no rash. Physical Findings - Vitals taken 06/10/2023 03:56 pm BP-Sitting L 168/110 mmHg BP Cuff Size Regular Pulse Rate-Sitting 96 bpm Respiration Rate 24 per min Temp-Oral 98.6 F Height 64 in Weight 128 lbs Body Mass Index 22 kg/m2 Body Surface Area 1.6 m2 Oxygen Saturation 97 % - Vitals taken 06/10/2023 04:36 pm BP-Sitting L 176/110 mmHg BP Cuff Size Regular General Appearance: - Alert. - Well developed. - Well nourished. - Well hydrated. - In no acute distress. Head: Injuries: - No evidence of a head injury. Appearance: - Head normocephalic. Neck: Suppleness: - Neck demonstrated no decrease in suppleness. Thyroid: - Not diffusely enlarged. Eyes: General/bilateral: Pupils: - PERRLA. Ears: General/bilateral: Tympanic Membrane: - Examined. - Not bulging. - Not erythematous. - Color normal. - No loss of tympanic membrane light reflex. Right Ear: External Auditory Canal: - Normal. Left Ear: External Auditory Canal: - Normal. Nose: General/bilateral: Cavity: - Nasal mucosa moist. Pharynx: Oropharynx: - Not inflamed. Lymph Nodes: - No adenopathy. Lungs: - Respiration rhythm and depth was normal. - Clear to auscultation. Cardiovascular: - System: Heart rate and rhythm normal. Murmurs: - No murmurs were heard. Edema: - Not present. Abdomen: Auscultation: - Bowel sounds were normal. Palpation: - Abdomen was soft. - Abdominal non-tender. Musculoskeletal System: General/bilateral: - Normal movement of all extremities . No pain. Neurological: - No disorientation was observed. - Memory was unimpaired. Gait And Stance: - Normal. Psychiatric: - Mood was not anxious. - Mood was not depressed. Skin: - Mucous membranes were dry. - Normal. - No skin lesions. Assessment - I10 - Essential (primary) hypertension - J45.51 - Severe persistent asthma with (acute) exacerbation - N18.30 - Chronic kidney disease, stage 3 unspecified - Q61.3 - Polycystic kidney, unspecified Therapy - Continue current medication. Counseling/Education Plan of care discussed with patient. Understanding was verbalized by all and all questions were addressed and answered. Discussed Pt. encouraged to be compliant with current treatment. Plan StartCited - Encounter for initial prescription of contraceptive pills Estarylla 0.25-35 MG-MCG tablet TAKE 1 TABLET BY MOUTH DAILY, 84 days, 3 refills EndCited StartCited - Essential (primary) hypertension Metoprolol Tartrate 25 MG tablet One tablet twice a day, 90 days, 1 refills amLODIPine Besylate 10 MG tablet One tablet daily, 90 days, 3 refills EndCited StartCited - Muscle spasm of calf Lab: VITAMIN D,25-OH,TOTAL,IA Lab: TSH W/REFLEX TO FT4 Lab: MAGNESIUM Lab: VITAMIN B12/FOLATE, SERUM PANEL EndCited StartCited - Other PHY ORDER/COMMENT please request records from Kidney doctor in [place], seen 2016 and 2018 at [facility]. Unsure name of the doctor. hydrOXYzine HCl 10 MG tablet One tablet daily, 90 days, 3 refills EndCited StartCited - Polycystic kidney, unspecified Lab: COMPREHENSIVE METABOLIC PANEL Lab: CBC (INCLUDES DIFF/PLT) Lab: LIPID PANEL, STANDARD Fluticasone Propionate 50 MCG/ACT gram 1 spray in each notril BID, 30 days, 11 refills EndCited StartCited - Severe persistent asthma with (acute) exacerbation Referral: Automobile And Property Underwriter Instructions: in [place] Montelukast Sodium 10 MG tablet TAKE 1 TABLET BY MOUTH DAILY, 90 days, 3 refills EndCited 1. Will attempt to get Nephrology records from [facility]. 2. Get labs done fasting at [facility], we will call with results. 3. Referring to Dr. De Anda, Pulmonary, in [place]. 4. Starting Metoprolol 25mg BID for HTN. Start checking BP daily, write down results on sheet, bring into next visit. 5. Concerned about kidney function - likely needs to see another Payroll Analyst, will see what previous records said. 6. Low salt diet. Follow up in 1 month. 1) Return to the clinic if condition worsens or new symptoms arise. 2) Patient to call if problem develops. Practice Management Use of tobacco assessment performed Review of medications documented. Health Reminders - Assess Blood Pressure satisfied 06/10/2023. - Assess BMI satisfied 06/10/2023. - Assess Tobacco Use satisfied 06/10/2023.
--- OUTSIDE RECORDS SUMMARY | 2025-10-08 12:48 | XMS_ITS | Clinical Summary ---
Author Organization [facility] Address [address] [place] [address] Phone Care Team Providers [employer] Director Name Role Phone RAYMUNDOSILVIA MONTANEZJCARLOS Primary Care Provider Reason for Visit and Chief Complaint * PHONE CALL Problems Includes: Problems addressed during this encounter and other active Problems All Visits Onset Date Resolved Date Provider Condition S tatus Chronic Kidney Disease Stage 3 06/10/2023 ELIO JOY FIRST AID ATTENDANT-C Active Last Documented On 3 4:43PM ; [facility] Hypokalemia 10/02/2022 MARCY RETANA PA-C A ctive Last Documented On 2 11:30PM ; [facility] Polycystic Kidney 03/15/2022 MARCY RETANA PA-C Active Last Documented On 2 5:32PM ; [facility] Essential Hypertension Benign 06/04/2018 NICHOL MONTERROSO MD Active Last Documented On 8 12:02PM ; [facility] Allergic Rhinitis 04/25/2016 NICHOL MONTERROSO MD Active Last Documented On 9 8:56PM ; [facility] Asthma Severe Persistent with Exacerbation 04/25/2016 NICHOL MONTERROSO MD Active Last Documented On 6 1:02PM ; [facility] Plan of Treatment Pt still not feeling better would like an antibiotic called in - Last Documented On 01/29/2023 12:33PM ; [facility] Assessments Includes: Assessments from this encounter No Assessments Recorded Medical Equipment - Implanted Devices Includes: Current Devices No Medical Equipment Recorded Medications Includes: Medications discussed during this encounter and other current Medications New / Renewed during this visit ELIO MARTIN on 01/29/2023 Zithromax Z-Jigar 250 MG Oral Tablet Provider: ELIO MARTIN 5 day supply: 6 tablet, 0 refills Diagnosis: Acute maxillary sinusitis, unspecified as directed [facility]: [facility] [address] [place], [id number] - Last Documented On 04/16/2023 4:25PM By Kristin GEE ; [facility] Current Medications (continue as prescribed) Azithromycin 250 MG Oral Tablet 08/14/2023 Provider: CHEIKH ROSA Diagnosis: Severe persisten t asthma with (acute) exacerbation as directed take 2 tab po qd for 1 day then take 1 tab po qd for 4 days Last Documented On 3 3:54PM By Cheikh ROSA ; [facility] Medrol 4 MG Oral Tablet Therapy Pack 08/14/2023 Provider: CHEIKH ROSA Diagnosis: Severe persisten t asthma with (acute) exacerbation as directed Last Documented On 3 3:54PM By Cheikh ROSA ; [facility] hydrOXYzine HCl 10 MG Oral Tablet 06/11/2023 Provide r: ELIO ROSA Diagnosis: One tablet daily Last Documented On 3 9:10AM By Elio ROSA ; [facility] Estarylla 0.25-35 MG-MCG Oral Tablet 06/11/2023 Provider: ELIO ROSA Diagnosis: Encounter for in itial prescription of contraceptive pills TAKE 1 TABLET BY MOUTH DAILY Last Documented On 3 9:10AM By Elio ROSA ; [facility] Montelukast Sodium 10 MG Oral Tablet 06/11/2023 Provider: ELIO ROSA Diagnosis: Severe persisten t asthma with (acute) exacerbation TAKE 1 TABLET BY MOUTH DAILY Last Documented On 3 9:10AM By Elio ROSA ; [facility] amLODIPine Besylate 10 MG Oral Tablet 06/11/2023 Provider: ELIO ROSA Diagnosis: Essential (prima ry) hypertension One tablet daily Last Documented On 3 9:10AM By Elio GAYTANC ; [facility] Trelegy Ellipta 100-62.5-25 MCG/ACT Inhalation Aerosol Powder Breath Activated 06/11/2023 Provider: ELIO Thomas [employer]-C Diagnosis: INHALE 1 PUFF BY MOUTH DAILY Last Documented On 3 6:49AM By Elio ROSA ; [facility] Fluticasone Propionate 50 MCG/ACT Nasal Suspension 06/11/2023 Provider: ELIO GAYTANC Diagnosis: Polycystic kidne y, unspecified 1 spray in each notril BID Last Documented On 3 9:10AM By Elio GAYTANC ; [facility] Biotin Plus Keratin 60878-278 MCG-MG Oral Tablet 06/10 Provider: Diagnosis: OTC Last Documented On 3 4:15PM By Elio ROSA ; [facility] Metoprolol Tartrate 25 MG Oral Tablet 06/10/2023 Provider: ELIO GAYTANC Diagnosis: Essential (prima ry) hypertension One tablet twice a day Last Documented On 3 4:49PM By Elio GAYTANC ; [facility] Potassium Chloride ER 20 MEQ Oral Tablet Extended Release 10/30/2022 Provider: MACRY Busby Diagnosis: Essential (prima ry) hypertension TAKE 1 TABLET BY MOUTH TWICE DAILY Last Documented On 2 8:20AM By Marcy Retana PA-C ; [facility] Albuterol Sulfate HFA 108 (90 Base) MCG/ACT Inhalation Aerosol Solution 10/01/2022 Provider: MARCY Busby Diagnosis: Severe persisten t asthma with (acute) exacerbation inhale 1-2 puffs every 4-6 h ours as needed Last Documented On 2 4:59PM By Marcy Retana PA-C ; [facility] [place] 3 1000 MG Oral Capsule 10/01/2022 Provider: Diagnosis: Last Documented On 10/01/2022 3:47PM By GLENN GEE ; [facility] Daily Value Multivitamin Oral Tablet 10/01/2022 Prov ider: Diagnosis: Last Documented On 10/01/2022 3:48PM By GLENN GEE ; [facility] Albuterol Sulfate (2.5 MG/3ML) 0.083% Inhalation Nebulization solution 04/08/2022 Provider: ELIO ROSA Diagnosis: Severe persisten t asthma with (acute) exacerbation USE 1 VIAL VIA NEBULIZER CHAYITO RY 4 HOURS NEEDED Last Documented On 2 8:14AM By Elio ROSA ; [facility] Medications Administered Includes: Administered Medications from this encounter No Administered Medications Recorded Results Includes: Results discussed during this encounter No Results Recorded For Specified Dates History of Present Illness Includes: History of Present Illness from this encounter No History of Present Illness Recorded Social History Description Last Updated Tobacco non-user 08/14/2023 Last Documented On 3 12:33PM ; [facility] Work history 04/17/2023 Last Documented On 3 12:33PM ; [facility] Current smoker 01/27/2023 Last Documented On 3 12:33PM ; [facility] Former smoker QUIT 8-9 years ago 021 Last Documented On 3 12:33PM ; [facility] Marital history - 2 children. [place] in [place] with and son 06/01/2020 Last Documented On 3 12:33PM ; [facility] Non-smoker 06/01/2020 Last Documented On 3 12:33PM ; [facility] Diet: regular ~Exercise none 12/03/2017 Last Documented On 3 12:33PM ; [facility] Smoking Status Unknown Medical History Includes: Medical History addressed during this encounter Description Last Updated Taking OTC pain medication / fever. Lorenza alvares Motrin 10/09/2022 Last Documented On 3 12:33PM ; [facility] A fall 10/09/2022 Last Documented On 3 12:33PM ; [facility] Taking OTC medications 09/18/2021 Last Documented On 3 12:33PM ; [facility] Taking medication - prescription 020 Last Documented On 3 12:33PM ; [facility] Allergies: penicillin, propo xyphene ~Surgeries : 2 , knee facture age 13, ~Illnesses: Poly-cystic kidney disease, COPD 02/17/2016 Last Documented On 3 12:33PM ; [facility] Family History Includes: Family History addressed during this encounter Description Last Updated Family history reviewed - unchanged [facility] e last visit 10/07/2020 Last Documented On 3 12:33PM ; [facility] Family history [use for free text] 12/03 Last Documented On 3 12:33PM ; [facility] Review of Systems Includes: Review of Systems from this encounter No Review of Systems Recorded Mental Status Includes: Mental Status from this encounter No Mental Status Recorded Functional Status Includes: Functional Status from this encounter No Functional Status Recorded Physical Exam Includes: Physical Exam from this encounter No Physical Exam Recorded Allergies Includes: Active Allergies Substance Type Reaction Onset Date Resolved Date Statu s Pneumococcal Vaccines Allergy Hives / Ur ticaria, Diarrhea / Diarrheal disorder, Shortness of Breath / Dyspnea, throat swelling 09/23/2019 Active Last Documented On 3 3:38PM ; [facility] Penicillins Allergy Skin Rashes / Er uption of skin, Hives / Urticaria 02/08/2016 Active Last Documented On 3 3:38PM ; [facility] MUSHROOMS Allergy Shortness of Tori ath / Dyspnea 10/01/2022 Active Last Documented On 08/14/2023 3:38PM ; [facility] Note: throat swelling Levaquin Allergy Asthma / Allergi c asthma, Shortness of Breath / Dyspnea 04/25/2016 Active Last Documented On 08/14/2023 3:38PM ; [facility] Note: HEART RHYTHM IRREGULAR Darvocet-N 100 Allergy Skin Rashes / Eruption of skin, Hives / Urticaria 02/16/2016 Active Last Documented On 3 3:38PM ; [facility] Encounters Encounter Provider Location Date Check-In Time Check-Out Time Diagnosis * PHONE CALL ELIO E HELENE FIRST AID ATTENDANT- 01/29/2023 12:32PM 11:59PM Insurance Includes: Active Insurance Policies Plan Name Member ID Group # Subscriber Relationship Effect chani Dates 1 - [facility] [id number] BOB CARTER Self Clinical Notes Includes: Clinical Notes from this encounter * Progress note Date Encounter Last Documented by 01/29/2023 * PHONE CALL Last documented on 01/29/2023; 12:33 PM, [facility]; [facility] Active Problems & Conditions - Allergic Rhinitis - Asthma Severe Persistent with Exacerbation - Essential Hypertension Benign - Hypokalemia - Polycystic Kidney Current Medication - Albuterol Sulfate (2.5 MG/3ML) [...] -MAKE APPT, 30 days, 5 refills - [place] 3 1000 MG Oral Capsule 0 days, [...] days, 0 refills Past Medical/Surgical History Reported: Medications: Taking - prescription, medication for pain laew-xfy-[id number] / fever. Using Motrin, and pnrj-fgz-fuvjjdv medications. Physical Trauma: A fall. Allergies: penicillin, propoxyphene Surgeries : 2 , knee facture age 13, Illnesses: Poly-cystic kidney disease, COPD. Social History Tobacco use: Current smoker, former smoker QUIT 8-9 years ago, and non-smoker. Work: Work history. Marital: Marital history - 2 children. Lives in [place] with and son. Diet: regular Exercise none. [...] visit family history [use for free text] Plan StartCited - Acute maxillary sinusitis, unspecified Zithromax Z-Jigar 250 MG tablet as directed, 5 days, 0 refills EndCited Pt still not feeling better would like an antibiotic called in Health Reminders - Assess Tobacco Use satisfied 01/29/2023.
--- OUTSIDE RECORDS SUMMARY | 2025-10-08 12:48 | XMS_ITS | Data Portability ---
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 [email or web address] Not available 04/11/2024 15:19:15 12/21/2024 12/21/2024 Pt works two jobs. Due to increased blood pressure, metoprolol succinate ER is now increased from 50 mg daily to 75 mg daily. 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 Due to elevated blood pressure, losartan is now rx'd. [email or web address] Not available 10/08/2025 12:41:34 Plan of Treatment Reminders Order Date Submit Date Provider Last Modified By Organization Details Last Modified Time Details Appointments NEW PATIENT 30 2025 01:00P CHINO Burch-ALEKS Not available Not available Not available ANY 15 2025 03:15P Colton Chisholm MD Not available Not available Not available Lab CBC 2024 025 SAL[facility] (Centralized Electronic Ordering - All Locations), Patient Can Go To The Location Of Their Choice, [id number] 10/06/2025 17:12:21 lipid panel, serum 2024 025 [facility] (Centralized Electronic Ordering - All Locations), Patient Can Go To The Location Of Their Choice, 10/06/2025 17:12:19 CMP, serum or plasma 2024 025 SALINAS [facility] (Centralized Electronic Ordering - All Locations), Patient Can Go To The Location Of Their Choice, [id number] 10/06/2025 17:12:20 HbA1c (hemoglob in A1c), blood 2024 025 [facility]INAS [facility] (Centralized Electronic Ordering - All Locations), Patient Can Go To The Location Of Their Choice, [address] 10/06/2025 17:12:20 TSH, ultra-sen sitive, serum 2024 025 SALINAS [facility] (Centralized Electronic Ordering - All Locations), Patient Can Go To The Location Of Their Choice, 10/06/2025 17:12:20 CMP, serum or plasma 2024 025 [facility], [address] [facility], [facility] [address], [place], [address], 12/22/2024 06:15:18 CBC w/ auto diff 2024 025 [facility], [address] [facility], [facility] [address], [place], [address], 12/22/2024 06:15:21 lipid panel, serum 2024 025 [facility], [address] [facility], [facility] [address], [place], [address], 12/22/2024 06:15:16 TSH, ultra-sen sitive, serum 2024 025 [place], [address] [facility], [address], [place], [address], 12/22/2024 06:15:20 HbA1c (hemoglob in A1c), blood 2024 025 [place], [address], [address], [place], [address], 12/22/2024 06:15:19 rapid strep group A, throat 2023 024 [email or web address] In-Office Order, Internal Use Only DO Not Attach Compendium DO Not Attach Compendium, Do Not Delete/merge, [id number] 06/16/2024 12:07:39 rapid flu (A+B) 2023 024 [email or web address] In-Office Order, Internal Use Only DO Not Attach Compendium DO Not Attach Compendium, Do Not Delete/merge, [id number] 06/16/2024 12:07:40 rapid SARS CoV 2 Ag, QL IA, respirato ry specimen 2023 024 [email or web address] In-Office Order, Internal Use Only DO Not Attach Compendium DO Not Attach Compendium, Do Not Delete/merge, [id number] 06/16/2024 12:07:41 Referral nephrolog ist referral 2024 025 [email or web address] Not available 10/06/2025 16:52:36 gynecolog ist referral 2024 025 [email or web address] Flory Oden, [address] [facility] , [facility] [address], [place], [address], 01/05/2025 09:33:43 Procedures None recorded. Surgeries None recorded. Imaging XR, shoulder, 2 or more view 2023 024 [email or web address] [facility] Scheduling, [address] [place], [address], 06/05/2024 16:04:10 Medication Orders sertralin e 50 mg tablet 2024 025 [facility]acy #[id number], [address], [place], [address], 10/06/2025 16:45:34 losartan 25 mg tablet 2024 025 [facility] #6831, [address], [place], [address], 10/06/2025 16:53:24 hydroxyzi ne HCl 10 mg tablet 2024 025 [facility], [address], [place], [address], 10/06/2025 16:50:18 sertralin e 25 mg tablet 2024 025 [email or web address] [facility] [address], [place], [address], 10/06/2025 16:48:08 metoprolo l succinate ER 25 mg tablet,ex tended release 24 hr 2024 025 [facility], [address], [place], [address], 12/21/2024 10:27:33 cefdinir 300 mg capsule 2023 025 [id number], [address], [place], [id number], 12/18/2024 13:12:40 Tessalon Perles 100 mg capsule 2023 024 [facility], [address], [place], [address], 07/06/2024 09:33:53 guaifenes in 400 mg tablet 2023 024 [facility], [address], [place], [address], 07/06/2024 09:34:12 Paxlovid 300 mg (150 mg x 2)-100 mg tablets in a dose pack 2023 024 [facility], [address], [place], [address], 07/06/2024 09:35:13 Debrox 6.5 % ear drops 2023 024 [facility], [address], [place], [address], 07/06/2024 09:34:02 baclofen 10 mg tablet 2023 024 [email or web address] [facility], [address] [place], [place], [address], 06/26/2024 13:40:48 metoprolo l succinate ER 50 mg tablet,ex tended release 24 hr 2023 024 [facility], [address] [place], [place], [address], 04/08/2024 17:42:32 nifedipin e ER 60 mg tablet,ex tended release 2023 [facility], [address] [place], [place], [address], 07/06/2024 09:35:27 Patient TargetsNo targets recorded. Patient Instructions Encounter Date Encounter Id Patient Instructions Last Modified By Organization Details Last Modified Time 04/08/2024 [id number] learning about high blood pressure [email or web address] Not available 04/08/2024 17:42:29 06/16/2024 [id number] coronavirus (covid-19): care instructions Not available 06/16/2024 12:07:38 Plan of care has been discussed with patient including expected therapeutic benefits and potential side effects of prescribed medication and treatments. Patient verbalizes understanding and is in agreement with the plan of care. Patient was instructed to keep all scheduled appointments and contact the clinic for any additional problems. [email or web address] Not available 06/16/2024 11:57:14 07/06/2024 [id number] Plan of care has been discussed with patient including expected therapeutic benefits and potential side effects of prescribed medication and treatments. Patient verbalizes understanding and is in agreement with the plan of care. Patient was instructed to keep all scheduled appointments and contact the clinic for any additional problems. 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 Referral for Ch ronic kidney disease Referring Physician: Oc Chisholm [facility], Encounter Date: 10/06/2025 Results Created Date Observation Date Name Description Value Unit Range Abnormal Flag Note LastModifiedBy Organization Detail LastModifiedTime 06/16/20 24 06/16/2024 rapid SARS CoV 2 Ag, QL IA, respi rator y speci men rapid SARS CoV 2 Ag, QL IA, respiratory specimen positi ve Not Available In-Office Order Internal Use Only DO Not Attach Compendium DO Not Attach Compendium, Do Not Delete/merge, [id number] 06/16/2024 12:06:02 06/16/20 24 06/16/2024 rapid flu (A+B) Flu A negati ve Not Available In-Office Order Internal Use Only DO Not Attach Compendium DO Not Attach Compendium, Do Not Delete/merge, [id number] 06/16/2024 12:05:36 06/16/20 24 06/16/2024 rapid flu (A+B) Flu B negati ve Not Available In-Office Order Internal Use Only DO Not Attach Compendium DO Not Attach Compendium, Do Not Delete/merge, [id number] 06/16/2024 12:05:36 06/16/20 24 06/16/2024 rapid strep group A, throa t Strep negati ve Not Available In-Office Order Internal Use Only DO Not Attach Compendium DO Not Attach Compendium, Do Not Delete/merge, [id number] 06/16/2024 12:05:23 12/21/19 25 12/22/2024 LIPID PANEL cholesterol, total 257 mg/dL 100-19 9 above high normal Not Available [facility] ([facility]) [address] [facility], [place], [address], 12/22/2024 06:15:16 12/21/19 25 12/22/2024 LIPID PANEL triglyceride s 180 mg/dL 0-149 above high normal Not Available [facility] ([facility]) [address] [place], [address], 12/22/2024 06:15:16 12/21/19 25 12/22/2024 LIPID PANEL HDL cholesterol 56 mg/dL >39 Not Available [facility] ([facility]) [address] [place], [address], 12/22/2024 06:15:16 12/21/19 25 12/22/2024 LIPID PANEL VLDL cholesterol frank 33 mg/dL 5-40 Not Available [facility] ([facility]) [address] [place], [address], 12/22/2024 06:15:16 12/21/19 25 12/22/2024 LIPID PANEL LDL chol calc ([facility]) 168 mg/dL 0-99 above high normal Not Available [facility] ([facility]) [address] [place], [address], 12/22/2024 06:15:16 12/21/19 25 12/22/2024 COMP. METAB OLIC PANEL (14) glucose 86 mg/dL 70-99 Not Available [facility] ([facility]) [address] [place], [address], 12/22/2024 06:15:17 12/21/19 25 12/22/2024 COMP. METAB OLIC PANEL (14) BUN 23 mg/dL 6-24 Not Available [facility] ([facility]) [address] [place], [address], 12/22/2024 06:15:17 12/21/19 25 12/22/2024 COMP. METAB OLIC PANEL (14) creatinine 2.18 mg/dL 0.57-1 .00 above high normal Not Available [facility] ([facility]) [address] [place], [address], 12/22/2024 06:15:17 12/21/19 25 12/22/2024 COMP. METAB OLIC PANEL (14) eGFR 27 mL/mi n/1.7 3 >59 below low normal Not Available [facility] ([facility]) [address] [place], [address], 12/22/2024 06:15:17 12/21/19 25 12/22/2024 COMP. METAB OLIC PANEL (14) BUN/creatini ne ratio 11 9-23 Not Available [facility] ([facility]) [address] [place], [address], 12/22/2024 06:15:17 12/21/19 25 12/22/2024 COMP. METAB OLIC PANEL (14) sodium 142 mmol/ L 134-14 4 Not Available [facility] ([facility]) [address] [place], [address], 12/22/2024 06:15:17 12/21/19 25 12/22/2024 COMP. METAB OLIC PANEL (14) potassium 4.5 mmol/ L 3.5-5. 2 Not Available [facility] ([facility]) [address] [place], [address], 12/22/2024 06:15:17 12/21/19 25 12/22/2024 COMP. METAB OLIC PANEL (14) chloride 107 mmol/ L 96-106 above high normal Not Available [facility] ([facility]) [address] [place], [address], 12/22/2024 06:15:17 12/21/19 25 12/22/2024 COMP. METAB OLIC PANEL (14) carbon dioxide, total 21 mmol/ L 20-29 Not Available [facility] ([facility]) [address] [place], [address], 12/22/2024 06:15:17 12/21/19 25 12/22/2024 COMP. METAB OLIC PANEL (14) calcium 10.2 mg/dL 8.7-10 .2 Not Available [facility] ([facility]) [address] [place], [address], 12/22/2024 06:15:17 12/21/19 25 12/22/2024 COMP. METAB OLIC PANEL (14) protein, total 7.4 g/dL 6.0-8. 5 Not Available [facility] ([facility]) [address] [place], [address], 12/22/2024 06:15:17 12/21/19 25 12/22/2024 COMP. METAB OLIC PANEL (14) albumin 4.3 g/dL 3.9-4. 9 Not Available [facility] ([facility]) [address] [place], [address], 12/22/2024 06:15:17 12/21/19 25 12/22/2024 COMP. METAB OLIC PANEL (14) globulin, total 3.1 g/dL 1.5-4. 5 Not Available [facility] ([facility]) [address] [place], [address], 12/22/2024 06:15:17 12/21/19 25 12/22/2024 COMP. METAB OLIC PANEL (14) bilirubin, total <0.2 mg/dL 0.0-1. 2 Not Available [facility] ([facility]) [address] [place], [address], 12/22/2024 06:15:17 12/21/19 25 12/22/2024 COMP. METAB OLIC PANEL (14) alkaline phosphatase 123 IU/L 44-121 above high normal Not Available [facility] ([facility]) [address] [place], [address], 12/22/2024 06:15:17 12/21/19 25 12/22/2024 COMP. METAB OLIC PANEL (14) AST (SGOT) 17 IU/L 0-40 Not Available [facility] ([facility]) [address] [place], [address], 12/22/2024 06:15:17 12/21/19 25 12/22/2024 COMP. METAB OLIC PANEL (14) ALT (SGPT) 16 IU/L 0-32 Not Available [facility] ([facility]) [address] [place], [address], 12/22/2024 06:15:17 12/21/19 25 12/22/2024 HEMOG LOBIN A1C hemoglobin A1C 5.5 % 4.8-5. 6 Predi abete s: 5.7 - 6.4 Diabe paloma: >6.4 Glyce prosper contr ol for adult s with diabe paloma: <7.0 Not Available [facility] ([facility]) [address] [facility], [place], [address], 12/22/2024 06:15:19 12/21/19 25 12/22/2024 TSH TSH 0.713 uIU/m L 0.450- 4.500 Not Available [facility] ([facility]) [address] [place], [address], 12/22/2024 06:15:20 12/21/19 25 12/21/2024 CBC WITH DIFFE RENTI AL/PL ATELE T WBC 7.6 x10e3 /uL 3.4-10 .8 Not Available [facility] ([facility]) [address] [place], [address], 12/22/2024 06:15:21 12/21/19 25 12/21/2024 CBC WITH DIFFE RENTI AL/PL ATELE T RBC 4.07 x10e6 /uL 3.77-5 .28 Not Available [facility] ([facility]) [address] [place], [address], 12/22/2024 06:15:21 12/21/19 25 12/21/2024 CBC WITH DIFFE RENTI AL/PL ATELE T hemoglobin 11.9 g/dL 11.1-1 5.9 Not Available [facility] ([facility]) [address] [place], [address], 12/22/2024 06:15:21 12/21/19 25 12/21/2024 CBC WITH DIFFE RENTI AL/PL ATELE T hematocrit 36.8 % 34.0-4 6.6 Not Available [facility] ([facility]) [address] [place], [address], 12/22/2024 06:15:21 12/21/19 25 12/21/2024 CBC WITH DIFFE RENTI AL/PL ATELE T MCV 90 fL 79-97 Not Available [facility] ([facility]) [address] [place], [address], 12/22/2024 06:15:21 12/21/19 25 12/21/2024 CBC WITH DIFFE RENTI AL/PL ATELE T MCH 29.2 pg 26.6-3 3.0 Not Available [facility] ([facility]) [address] [place], [address], 12/22/2024 06:15:21 12/21/1912/21/2024 CBC WITH DIFFE RENTI AL/PL ATELE T MCHC 32.3 g/dL 31.5-3 5.7 Not Available [facility] ([facility]) [address] [place], [address], 12/22/2024 06:15:21 12/21/19 25 12/21/2024 CBC WITH DIFFE RENTI AL/PL ATELE T RDW 11.7 % 11.7-1 5.4 Not Available [facility] ([facility]) [address] [place], [address], 12/22/2024 06:15:21 12/21/19 25 12/21/2024 CBC WITH DIFFE RENTI AL/PL ATELE T platelets 336 x10e3 /uL 150-45 0 Not Available [facility] ([facility]) [address] [facility], [place], [address], 12/22/2024 06:15:21 12/21/19 25 12/21/2024 CBC WITH DIFFE RENTI AL/PL ATELE T neutrophils 67 % notest ab. Not Available [facility] ([facility]) [address] [facility], [place], [address], 12/22/2024 06:15:21 12/21/19 25 12/21/2024 CBC WITH DIFFE RENTI AL/PL ATELE T lymphs 25 % notest ab. Not Available [facility] ([facility]) [address] [facility], [place], [address], 12/22/2024 06:15:21 12/21/19 25 12/21/2024 CBC WITH DIFFE RENTI AL/PL ATELE T monocytes 6 % notest ab. Not Available [facility] ([facility]) [address] [facility], [place], [address], 12/22/2024 06:15:21 12/21/19 25 12/21/2024 CBC WITH DIFFE RENTI AL/PL ATELE T eos 2 % notest ab. Not Available [facility] ([facility]) [address] [facility], [place], [address], 12/22/2024 06:15:21 12/21/19 25 12/21/2024 CBC WITH DIFFE RENTI AL/PL ATELE T basos 0 % notest ab. Not Available [facility] ([facility]) [address] [facility], [place], [address], 12/22/2024 06:15:21 12/21/19 25 12/21/2024 CBC WITH DIFFE RENTI AL/PL ATELE T neutrophils (absolute) 5.1 x10e3 /uL 1.4-7. 0 Not Available [facility] ([facility]) [address] [facility], [place], [address], 12/22/2024 06:15:21 12/21/19 25 12/21/2024 CBC WITH DIFFE RENTI AL/PL ATELE T lymphs (absolute) 1.9 x10e3 /uL 0.7-3. 1 Not Available [facility] ([facility]) [address] [facility], [place], [address], 12/22/2024 06:15:21 12/21/19 25 12/21/2024 CBC WITH DIFFE RENTI AL/PL ATELE T monocytes(ab solute) 0.5 x10e3 /uL 0.1-0. 9 Not Available [facility] ([facility]) [address] [facility], [place], [address], 12/22/2024 06:15:21 12/21/19 25 12/21/2024 CBC WITH DIFFE RENTI AL/PL ATELE T eos (absolute) 0.1 x10e3 /uL 0.0-0. 4 Not Available [facility] ([facility]) [address] [place], [address], 12/22/2024 06:15:21 12/21/19 25 12/21/2024 CBC WITH DIFFE RENTI AL/PL ATELE T baso (absolute) 0.0 x10e3 /uL 0.0-0. 2 Not Available [facility] ([facility]) [address] [place], [address], 12/22/2024 06:15:21 12/21/19 25 12/21/2024 CBC WITH DIFFE RENTI AL/PL ATELE T immature granulocytes 0 % notest ab. Not Available [facility] ([facility]) [address] [place], [address], 12/22/2024 06:15:21 12/21/19 25 12/21/2024 CBC WITH DIFFE RENTI AL/PL ATELE T immature grans (abs) 0.0 x10e3 /uL 0.0-0. 1 Not Available [facility] ([facility]) [address] [facility], [place], [address], 12/22/2024 06:15:21 Result Notes None recorded. Problems Name Problem SNOMED Code Status Onset Date Resolution Date Notes Provider Name and Address Organization Details Recorded Time Autosomal dominant polycystic kidney disease 812957224 Active 2022 OSMANI OROZCO DO Attn: [place],[address] [place], [address], [place] - [facility] 3 16:42:06 Essential hypertension 25390801 Active 2022 OSMANI OROZCO DO Attn: [place] [address] [place], [address], [place] - [facility] 3 16:42:45 Allergic rhinitis 81635814 Active 2022 OSMANI OROZCO DO Attn: [place] [address],[address] [place], [address], [place] [facility] 3 16:49:10 Hypokalemia 51342905 Active 2022 OSMANI OROZCO DO Attn: [place] [address],[address] [place], [address], [place] [facility] 3 16:49:23 Cobalamin deficiency 728822936 Active 2022 OSMANI OROZCO DO Attn: [place] [place], [address], [place] [facility] 3 16:51:25 Moderate persistent asthma 947422172 Active 2022 OSMANI OROZCO DO Attn: [place] [address] [place], [address], [place] [facility] 3 16:42:06 Chronic kidney disease stage 3B 564151192 Active 2022 2 - 1.7/41 2 - 1.6/37 11/2022 - 1.8/32 06/2023 - 1.86/2 9 07/2023 - 2.15/2 8 3 - 1.87/3 3 OSMANI OROZCO DO Attn: [place],[address] [facility], [place], [address], [place] - [facility] 3 12:12:53 Hypophosphatem ia 9259034 Active 2022 OSMANI OROZCO DO Attn: [place],[address] [facility], [place], [address], [place] [facility] 3 12:09:19 Problem Notes None recorded. Procedures Surgical History Date Name Laterality Status Provider Name and Address Organization Details Recorded Time 8 Date of Last Pap Smear completed OSMANI OROZCO DO Attn: Accounting,[address] [facility], [place], [address], [place] [facility] 07/05/2023 16:57:27 5 delivery completed OSWALD Irving - [facility] 07/05/2023 16:25:12 Imaging Results None recorded. Procedure Notes None recorded. Medical Equipment None Reported. Allergies Allergen ID Allergen Name Allergen Category Reaction Reaction Severity Criticality Documentation Date Start Date Code Code System Note Provider Name and Address Organization Details Recorded Time 868398 cultivate d mushroom extract food,medi cation facial swelling severe high 07/05/2023 13699 17 RxNorm OSWALD [place], [place] - [facility] 3 16:22:15 467163 Diflucan medicatio n hives Not available Not available 07/05/2023 3 RxNorm OSWALD [place], [place] [facility] 3 16:26:20 858132 Levaquin medicatio n chest pain severe high 07/05/2023 22685 2 RxNorm OSMANI OROZCO DO Attn: Accountin g,[address], [place], [address], [facility] - [facility] 3 16:41:21 974047 losartan medicatio n abdominal pain diarrhea severe moderate Not available 11/13/2023 99716 RxNorm Oc Chisholm MD Attn: Accountin g,[address], [place], [address], [place] - [facility] 5 16:53:31 706774 Product containin g penicilli n (product) medicatio n hives rash Not available Not available Not available 10/04/20252015 27659 8001 SNOMED Not Available [employer] - prod 5 13:24:48 866940 fluconazo le medicatio n hives Not available Not available 10/04/20252022 4450 RxNorm Not Available [employer] - prod 5 13:24:50 407160 levofloxa skinny medicatio n other Not available [facility] 10/04/20252022 69909 RxNorm Chest Pain (Lizy re) Not Available [employer] - prod 5 13:24:50 031488 propoxyph anayeli medicatio n hives Not available Not available 10/04/20252017 8785 RxNorm Not Available [employer] - prod 13:25:29 Medications Name [...] height Body mass index (BMI) Body weight Body temperature Respiratory rate Oxygen saturation Heart rate Systolic And Diastolic Provider Name and Address Organization Details Last Updated DateTime 5 160.02 cm 23.2 kg/m2 26487.3 g 98 [degF] 16 /min 100 % 72 /min 147/93 mm[Hg] Polina Green [place] - [facility] 5 10:09:07 Date Recorded Body height Body mass index (BMI) Body weight Oxygen saturation Heart rate Respiratory rate Body temperature Systolic And Diastolic Provider Name and Address Organization Details Last Updated DateTime 4 160.02 cm 25.7 kg/m2 82222.8 9 g 93 % 59 /min 16 /min 97.1 [degF] 144/62 mm[Hg] Tamara Graham MA [facility] 4 16:57:25 Date Recorded Body height Body mass index (BMI) Body weight Body temperature Respiratory rate Heart rate Oxygen saturation Systolic And Diastolic Provider Name and Address Organization Details Last Updated DateTime 4 160.02 cm 24.6 kg/m2 17549.3 4 g 98.3 [degF] 16 /min 102 /min 100 % 123/85 mm[Hg] Polina Green MA [facility] 4 11:37:30 Date Recorded Body height Body mass index (BMI) Body weight Body temperature Respiratory rate Heart rate Systolic And Diastolic Systolic And Diastolic Provider Name and Address Organization Details Last Updated DateTime 4 160.02 cm 24.9 kg/m2 37691.6 8 g 97.7 [degF] 16 /min 93 /min 143/94 mm[Hg] 136/95 mm[Hg] Kasie Castaneda MA [facility] 4 10:00:46 Date Recorded Body height Body mass index (BMI) Body weight Oxygen saturation Heart rate Respiratory rate Body temperature Systolic And Diastolic Provider Name and Address Organization Details Last Updated DateTime 5 160.02 cm 24.1 kg/m2 61292.2 6 g 100 % 73 /min 16 /min 97.5 [degF] 158/89 mm[Hg] Tamara Graham MA [facility] 5 16:24:51 Social History Question Answer Notes LastModified by Organizat ion Details LastModified Time Tobacco Smoking Status Former Smoker quit in 2011 Tamara Graham MA null, [facility] 12/16/2023 11:28:33 Do You Have [...] not available 12/16/2023 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 Occasional Information not available 12/16/2023 Mental Status Question Answer Note LastModified by Organization D etails LastModified Time Do you feel stressed (tense, restless, nervous, or anxious, or unable to sleep at night)? [id number] Information not available 12/16/2023 Family History Relationship [...] Vaccine Type Date Status Note Provider Nam e and Address Organization Details Recorded Time Influenza, recombinant, quadrivalent, PF 1 completed OSMANI OROZCO DO Attn: Accounting,[address] [facility], [place], [place], [address] [place] [address], [place] [facility] 07/18/2023 17:34:47 MMR 3 completed OSMANI OROZCO DO Attn: Accounting,204 1 [facility], [place], [place], [address] [place] [address], [place] [facility] 07/18/2023 17:34:47 COVID-19, mRNA, LNP-S, PF, 30 mcg/0.3 mL dose 1 completed OSMANI OROZCO DO Attn: Accounting,204 1 [facility], [place], [place], [address] [place] [address], [place] [facility] 07/18/2023 17:34:47 COVID-19, mRNA, LNP-S, PF, 30 mcg/0.3 mL dose 1 completed OSMANI OROZCO DO Attn: Accounting,204 1 [facility], [place], [place], [address] [place] [address], [place] [facility] 07/18/2023 17:34:47 COVID-19, mRNA, LNP-S, PF, 30 mcg/0.3 mL dose 1 completed OSMANI OROZCO DO Attn: Accounting,204 1 [facility], [place], [place], [address] [place] [address], [place] [facility] 07/18/2023 17:34:47 COVID-19, mRNA, LNP-S, bivalent, PF, 30 mcg/0.3 mL dose 2 completed OSMANI OROZCO DO Attn: Accounting,204 1 [facility], [place], [place], [address] [place] [address], [place] [facility] 07/18/2023 17:34:47 pneumococcal polysaccharide PPV23 9 completed OSMANI OROZCO DO Attn: Accounting,204 1 [facility], [place], [place], [address] [place] [address], [facility] - [facility] 07/18/2023 17:34:47 Tdap 8 completed OSMANI OROZCO DO Attn: Accounting,204 1 [facility], [place], [place], [address] [place] [address], [facility] - [facility] 07/18/2023 17:34:47 Pneumococcal conjugate PCV 13 7 completed OSMANI OROZCO DO Attn: Accounting,204 1 [facility], [place], [place], [address] [place] [address], [facility] - [facility] 07/18/2023 17:34:47 Influenza, split virus, trivalent, PF 6 completed OSMANI OROZCO DO Attn: Accounting,204 1 [facility], [place], [address] [place] [address], [facility] - [facility] 07/18/2023 17:34:47 Influenza, split virus, quadrivalent, PF 2 completed OSMANI OROZCO DO Attn: Accounting,204 1 [facility], [place], [address] [place] [address], [facility] - [facility] 07/18/2023 17:34:47 Influenza, split virus, quadrivalent, PF 9 completed OSMANI OROZCO DO Attn: Accounting,204 1 [facility], [place], [address] [place] [address], [facility] - [facility] 07/18/2023 17:34:47 Influenza, split virus, quadrivalent, PF 7 completed OSMANI OROZCO DO Attn: Accounting,204 1 [facility], [place], [place],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
--- OUTSIDE RECORDS SUMMARY | 2025-10-08 12:48 | XMS_ITS | Encounter Summary ---
Author Organization [facility] Address [address] [place] [address] Phone Care Team Providers Care Bundle Person Name Role Phone Oc Villarreal MD Primary Care Provider Rebecca Love APRN, RECONCILIATION ANALYST Unavailable [phone] Encounter Details Date Type Department Care Team (Late st Contact Info) Description 10/28/2023 Transcribe Orders [facility] [address] [place] [address] Glenn Deng MD [address] [id number] Chronic kidney disease (CKD) stage G3b/A1, moderately decreased glomerular filtration rate (GFR) between 30-44 mL/min/1.73 square meter and albuminuria creatinine ratio less than 30 mg/g (HCC) (Primary Dx); Essential hypertension, malignant; Hypopotassemia; Anemia of chronic renal failure, unspecified CKD stage; Renal hypertension Social History Tobacco Use Types Packs/Day Years Used Date Smoking Tobacco: Former Smokeless Tobacco: Never Alcohol Use Standard Drinks/Week Comments No 0 (1 standard drink = 0.6 oz pur e alcohol) Comments No Sex and Gender Information Value Date Recorded Sex Assigned at Not on file Legal Sex Female 10:59 PM CDT Gender Identity Not on file Sexual Orientation Not on file documented as of this encounter Plan of Treatment Scheduled Orders Name Type Priority Associated Diagnoses Orde r Schedule ALDOSTERONE, S, GUAMAN ALDS Lab Today Chronic kidney disease (CKD) stage G3b/A1, moderately decreased glomerular filtration rate (GFR) between 30-44 mL/min/1.73 square meter and albuminuria creatinine ratio less than 30 mg/g (HCC) Essential hypertension, malignant Hypopotassemia Anemia of chronic renal failure, unspecified CKD stage Renal hypertension Expected: 10/28/2023 (Approximate), Expires: 10/28/2023 documented as of this encounter Procedures Procedure Name Priority Date/Time Associated Diagnosis Comments IRON,TRANSFERN,CALC.T IBC,%SAT Today 10/28/2023 2:43 PM CASE FINISHER Chronic kidney disease (CKD) stage G3b/A1, moderately decreased glomerular filtration rate (GFR) between 30-44 mL/min/1.73 square meter and albuminuria creatinine ratio less than 30 mg/g (HCC) Essential hypertension, malignant Hypopotassemia Anemia of chronic renal failure, unspecified CKD stage Renal hypertension URINALYSIS REFLEX IF INDICATED BY ABNORMAL RESULTS Today 10/28/2023 2:43 PM CASE FINISHER Chronic kidney disease (CKD) stage G3b/A1, moderately decreased glomerular filtration rate (GFR) between 30-44 mL/min/1.73 square meter and albuminuria creatinine ratio less than 30 mg/g (HCC) Essential hypertension, malignant Hypopotassemia Anemia of chronic renal failure, unspecified CKD stage Renal hypertension UR 24 HR CREATININE CLEARANCE Today 10/28/2023 2:43 PM CASE FINISHER Chronic kidney disease (CKD) stage G3b/A1, moderately decreased glomerular filtration rate (GFR) between 30-44 mL/min/1.73 square meter and albuminuria creatinine ratio less than 30 mg/g (HCC) Essential hypertension, malignant Hypopotassemia Anemia of chronic renal failure, unspecified CKD stage Renal hypertension CREATININE BLOOD W/ GFR Today 10/28/2023 2:43 PM CASE FINISHER Chronic kidney disease (CKD) stage G3b/A1, moderately decreased glomerular filtration rate (GFR) between 30-44 mL/min/1.73 square meter and albuminuria creatinine ratio less than 30 mg/g (HCC) Essential hypertension, malignant Hypopotassemia Anemia of chronic renal failure, unspecified CKD stage Renal hypertension CBC WITH AUTO DIFFERENTIAL Today 10/28/2023 2:43 PM CASE FINISHER Chronic kidney disease (CKD) stage G3b/A1, moderately decreased glomerular filtration rate (GFR) between 30-44 mL/min/1.73 square meter and albuminuria creatinine ratio less than 30 mg/g (HCC) Essential hypertension, malignant Hypopotassemia Anemia of chronic renal failure, unspecified CKD stage Renal hypertension MISCELLANEOUS TEST ([facility]AT[facility]) Routine 10/28/2023 2:43 PM CASE FINISHER Chronic kidney disease (CKD) stage G3b/A1, moderately decreased glomerular filtration rate (GFR) between 30-44 mL/min/1.73 square meter and albuminuria creatinine ratio less than 30 mg/g (HCC) Essential hypertension, malignant Hypopotassemia Anemia of chronic renal failure, unspecified CKD stage Renal hypertension RENIN ACTIVITY, PLASMA, PRA Today 10/28/2023 2:43 PM CASE FINISHER Chronic kidney disease (CKD) stage G3b/A1, moderately decreased glomerular filtration rate (GFR) between 30-44 mL/min/1.73 square meter and albuminuria creatinine ratio less than 30 mg/g (HCC) Essential hypertension, malignant Hypopotassemia Anemia of chronic renal failure, unspecified CKD stage Renal hypertension URIC ACID (BLOOD ASSAY) Today 10/28/2023 2:43 PM CASE FINISHER Chronic kidney disease (CKD) stage G3b/A1, moderately decreased glomerular filtration rate (GFR) between 30-44 mL/min/1.73 square meter and albuminuria creatinine ratio less than 30 mg/g (HCC) Essential hypertension, malignant Hypopotassemia Anemia of chronic renal failure, unspecified CKD stage Renal hypertension UR PROTEIN/CREATININE RATIO Today 10/28/2023 2:43 PM CASE FINISHER Chronic kidney disease (CKD) stage G3b/A1, moderately decreased glomerular filtration rate (GFR) between 30-44 mL/min/1.73 square meter and albuminuria creatinine ratio less than 30 mg/g (HCC) Essential hypertension, malignant Hypopotassemia Anemia of chronic renal failure, unspecified CKD stage Renal hypertension UR 24 HR PROTEIN Today 10/28/2023 2:43 PM CASE FINISHER Chronic kidney disease (CKD) stage G3b/A1, moderately decreased glomerular filtration rate (GFR) between 30-44 mL/min/1.73 square meter and albuminuria creatinine ratio less than 30 mg/g (HCC) Essential hypertension, malignant Hypopotassemia Anemia of chronic renal failure, unspecified CKD stage Renal hypertension UR 24 HR CREATININE CLEARANCE Today 10/28/2023 2:43 PM CASE FINISHER Chronic kidney disease (CKD) stage G3b/A1, moderately decreased glomerular filtration rate (GFR) between 30-44 mL/min/1.73 square meter and albuminuria creatinine ratio less than 30 mg/g (HCC) Essential hypertension, malignant Hypopotassemia Anemia of chronic renal failure, unspecified CKD stage Renal hypertension THYROXINE (T4) FREE Today 10/28/2023 2 :43 PM CASE FINISHER Chronic kidney disease (CKD) stage G3b/A1, moderately decreased glomerular filtration rate (GFR) between 30-44 mL/min/1.73 square meter and albuminuria creatinine ratio less than 30 mg/g (HCC) Essential hypertension, malignant Hypopotassemia Anemia of chronic renal failure, unspecified CKD stage Renal hypertension THYROID STIMULATING HORMONE (TSH) Today 10/28/2023 2:43 PM CASE FINISHER Chronic kidney disease (CKD) stage G3b/A1, moderately decreased glomerular filtration rate (GFR) between 30-44 mL/min/1.73 square meter and albuminuria creatinine ratio less than 30 mg/g (HCC) Essential hypertension, malignant Hypopotassemia Anemia of chronic renal failure, unspecified CKD stage Renal hypertension PHOSPHORUS (PO4) Today 10/28/2023 2:43 PM CASE FINISHER Chronic kidney disease (CKD) stage G3b/A1, moderately decreased glomerular filtration rate (GFR) between 30-44 mL/min/1.73 square meter and albuminuria creatinine ratio less than 30 mg/g (HCC) Essential hypertension, malignant Hypopotassemia Anemia of chronic renal failure, unspecified CKD stage Renal hypertension PARATHYROID HORMONE PTH INTACT Today 10/28/2023 2:43 PM CASE FINISHER Chronic kidney disease (CKD) stage G3b/A1, moderately decreased glomerular filtration rate (GFR) between 30-44 mL/min/1.73 square meter and albuminuria creatinine ratio less than 30 mg/g (HCC) Essential hypertension, malignant Hypopotassemia Anemia of chronic renal failure, unspecified CKD stage Renal hypertension MAGNESIUM (MG) Today 10/28/2023 2:43 PM CASE FINISHER Chronic kidney disease (CKD) stage G3b/A1, moderately decreased glomerular filtration rate (GFR) between 30-44 mL/min/1.73 square meter and albuminuria creatinine ratio less than 30 mg/g (HCC) Essential hypertension, malignant Hypopotassemia Anemia of chronic renal failure, unspecified CKD stage Renal hypertension HEPATIC FUNCTION PANEL Today 10/28/2023 2:43 PM CASE FINISHER Chronic kidney disease (CKD) stage G3b/A1, moderately decreased glomerular filtration rate (GFR) between 30-44 mL/min/1.73 square meter and albuminuria creatinine ratio less than 30 mg/g (HCC) Essential hypertension, malignant Hypopotassemia Anemia of chronic renal failure, unspecified CKD stage Renal hypertension COMPLETE BLOOD COUNT (CBC) WITH DIFF Today 10/28/2023 2:43 PM CASE FINISHER Chronic kidney disease (CKD) stage G3b/A1, moderately decreased glomerular filtration rate (GFR) between 30-44 mL/min/1.73 square meter and albuminuria creatinine ratio less than 30 mg/g (HCC) Essential hypertension, malignant Hypopotassemia Anemia of chronic renal failure, unspecified CKD stage Renal hypertension BASIC METABOLIC PANEL W/ CALCIUM TOTAL Today 10/28/2023 2:43 PM CASE FINISHER Chronic kidney disease (CKD) stage G3b/A1, moderately decreased glomerular filtration rate (GFR) between 30-44 mL/min/1.73 square meter and albuminuria creatinine ratio less than 30 mg/g (HCC) Essential hypertension, malignant Hypopotassemia Anemia of chronic renal failure, unspecified CKD stage Renal hypertension documented in this encounter Results * (ABNORMAL) PHOSPHORUS (PO4) (10/28/2023 2:43 PM CASE FINISHER) PHOSPHORUS 1.6(L) 2.5 - 4.5 mg/dL 10/28/2023 3:22 PM CASE FINISHER [facility] Blood Venipuncture / Unknown 10/28/2023 2:43 PM CASE FINISHER 10/28/2023 2:57 PM CASE FINISHER us Glenn Deng MD CHEMISTRY ORDERABLES Final Res ult [facility] [address] [place] [address] * (ABNORMAL) BASIC METABOLIC PANEL W/ CALCIUM TOTAL (10/28/2023 2:43 PM CASE FINISHER) SODIUM 140 136 - 145 mmol/L 10/28/2023 3:22 PM [facility] POTASSIUM 4.0 3.5 - 5.1 mmol/L 10/28/2023 3:22 PM [facility] CHLORIDE 107 98 - 107 mmol/L 10/28/2023 3:22 PM [facility] CO2, VENOUS 24 22 - 30 mmol/L 10/28/2023 3:22 PM [facility] ANION GAP 13.0 <18.0 mmol/L 10/28/2023 3:22 PM [facility] GLUCOSE 96 70 - 99 mg/dL 10/28/2023 3:22 PM [facility] BUN 21(H) 5 - 18 mg/dL 10/28/2023 3:22 PM [facility] CREATININE, BLOOD 2.01(H) 0.60 - 1.00 mg/dL 10/28/2023 3:22 PM [facility] BUN/CREATININE RATIO 10(L) 12 - 20 ratio 10/28/2023 3:22 PM [facility] CALCIUM 9.1 8.7 - 10.5 mg/dL 10/28/2023 3:22 PM [facility] GFR, ESTIMATED 30(L) >=60 10/28/2023 3:22 PM [facility] Comment: Creatinine Clearance is the preferred criteria for selecting drug dose adjustments in renally impaired patients. The GFR is provided as additional pertinent clinical information. GFR is reported in mL/min/1.73 sq m. Calculation based on the Chronic Kidney Disease Epidemiology Collaboration (CKD- EPI) equation refit without adjustment for race. GFR, EST. 32(L) >=60 023 3:22 PM CASE FINISHER [facility] GFR, EST. NONAFRICAN 26(L) >=60 10/28/2023 3:22 PM CASE FINISHER [facility] Blood Venipuncture / Unknown 10/28/2023 2:43 PM CASE FINISHER 10/28/2023 2:57 PM CASE FINISHER Glenn Deng MD CHEMISTRY ORDERABLES Final Res ult Performing Organization Address [facility] Co de Phone Number [facility] [address] [place] [address] * (ABNORMAL) UR 24 HR CREATININE CLEARANCE (10/28/2023 2:43 PM CASE FINISHER) CLEARANCE 28(L) 89 - 154 mL/min 10/28/2023 3:37 PM CASE FINISHER [facility] U CREATININE 24H 768(L) 800 - 2,800 mg/24 h 10/28/2023 3:37 PM CASE FINISHER [facility] CREATININE, BLOOD (READ ONLY) BKR 2.01 mg/dL 10/28/2023 3:37 PM CASE FINISHER [facility] URINE VOLUME 800 mL 10/28/2023 3:37 PM CASE FINISHER [facility] Urine Non-Phlebotomy Collection / Unknown 10/28/2023 2:43 PM CASE FINISHER 10/28/2023 2:56 PM CASE FINISHER us Glenn Deng MD CHEMISTRY ORDERABLES Final Res ult Performing Organization Address City/[facility]/ZIP Co de Phone Number [facility] [address] [place] [address] * (ABNORMAL) CREATININE BLOOD W/ GFR (10/28/2023 2:43 PM CASE FINISHER) CREATININE, BLOOD 2.01(H) 0.60 - 1.00 mg/dL 10/28/2023 3:53 PM CASE FINISHER [facility] GFR, ESTIMATED 30(L) >=60 10/28/2023 3:53 PM CASE FINISHER [facility] Comment: Creatinine Clearance is the preferred criteria for selecting drug dose adjustments in renally impaired patients. The GFR is provided as additional pertinent clinical information. GFR is reported in mL/min/1.73 sq m. Calculation based on the Chronic Kidney Disease Epidemiology Collaboration (CKD- EPI) equation refit without adjustment for race. GFR, EST. 32(L) >=60 023 3:53 PM CASE FINISHER [facility] GFR, EST. NONAFRICAN 26(L) >=60 10/28/2023 3:53 PM CASE FINISHER [facility] Blood Venipuncture / Unknown 10/28/2023 2:43 PM CASE FINISHER 10/28/2023 2:57 PM CASE FINISHER us Glenn Deng MD CHEMISTRY ORDERABLES Final Res ult [facility] [address] [place] [address] * (ABNORMAL) CBC WITH AUTO DIFFERENTIAL (10/28/2023 2:43 PM CASE FINISHER) Pathologist [facility] WBC 12.54(H) 4.00 - 12.00 10(3)/mcL 10/28/2023 3:00 PM CASE FINISHER [facility] RBC 3.63(L) 3.80 - 5.30 10(6)/mcL 10/28/2023 3:00 PM CASE FINISHER [facility] HEMOGLOBIN (HGB) 10.8(L) 12.0 - 15.8 g/dL 10/28/2023 3:00 PM CASE FINISHER [facility] HEMATOCRIT (HCT) 33.9(L) 36.0 - 47.0 % 10/28/2023 3:00 PM [facility] MCV 93.4 82.0 - 96.0 fL 10/28/2023 3:00 PM [facility] MCH 29.8 26.0 - 34.0 pg 10/28/2023 3:00 PM [facility] MCHC 31.9 31.0 - 36.0 g/dL 10/28/2023 3:00 PM [facility] PLATELET COUNT 357 140 - 440 10(3)/[facility] 10/28/2023 3:00 PM [facility] RDW 11.9 11.8 - 15.5 % 10/28/2023 3:00 PM [facility] MPV 9.9 9.7 - 12.4 fL 10/28/2023 3:00 PM [facility] NEUTROPHILS 67.9 47.0 - 73.0 % 10/28/2023 3:00 PM [facility] LYMPHOCYTES 23.8 18.0 - 42.0 % 10/28/2023 3:00 PM [facility] MONOCYTES 6.1 4.0 - 12.0 % 10/28/2023 3:00 PM [facility] EOSINOPHILS 2.0 0.0 - 5.0 % 10/28/2023 3:00 PM [facility] BASOPHILS 0.2 0.0 - 1.0 % 10/28/2023 3:00 PM [facility] ABSOLUTE NEUTROPHILS 8.51(H) 1.60 - 7.70 10(3)/mcL 10/28/2023 3:00 PM [facility] ABSOLUTE LYMPHOCYTES 2.99 1.30 - 3.20 10(3)/mcL 10/28/2023 3:00 PM [facility] ABSOLUTE MONOCYTES 0.76 0.20 - 1.00 10(3)/mcL 10/28/2023 3:00 PM [facility] ABSOLUTE EOSINOPHIL 0.25 0.00 - 0.40 10(3)/mcL 10/28/2023 3:00 PM CASE FINISHER [facility] ABSOLUTE BASOPHILS 0.03 0.00 - 0.10 10(3)/mcL 10/28/2023 3:00 PM CASE FINISHER [facility] NRBC PER 100 WBC 0 10/28/20 3:00 PM CASE FINISHER [facility] Blood Venipuncture / Unknown 10/28/2023 2:43 PM CASE FINISHER 10/28/2023 2:57 PM CASE FINISHER us Glenn Deng MD HEMATOLOGY ORDERABLES Final Re sult [facility] [address] [place] [address] * MISCELLANEOUS TEST ([facility]AT[facility]) (10/28/2023 2:43 PM CASE FINISHER) RESULT SEE NOTE 11/09/2023 08:50 AM 11/09/2023 8:43 AM CASE FINISHER [facility] [employer] Blood Venipuncture / Unknown 10/28/2023 2:43 PM CASE FINISHER 10/28/2023 2:57 PM CASE FINISHER Narrative [facility] - 11/09/2023 8:43 AM CASE FINISHER Test Result Flag Unit RefValue Diuretic Screen, Urine Diuretic Screen NEGATIVE Benzthiazide NEGATIVE Bumetanide NEGATIVE Chlorothiazide NEGATIVE Chlorthalidone NEGATIVE Furosemide NEGATIVE Hydrochlorothiazide NEGATIVE Hydroflumethiazide NEGATIVE Metolazone NEGATIVE Qualitative diuretic screen includes: benzthiazide, bumetanide, chlorothiazide, chlorthalidone, furosemide, hydrochlorothiazide, hydroflumethiazide, and metolazone. This test was developed and its performance characteristics determined by [employer]. It has not been cleared or approved by the Food and Drug Administration. Test Performed by: [employer]. [address] [place] [id number] us Glenn Deng MD LAB SEND OUTS Final Result [facility] US * UR 24 HR PROTEIN (10/28/2023 2:43 PM CASE FINISHER) VOLUME 24 HOUR PROTEIN 800 mL 10/28/2023 3:56 PM CASE FINISHER [facility] U PROTEIN MG/24HR 208 42 - 255 mg/24 h 10/28/2023 3:56 PM CASE FINISHER [facility] Urine Non-Phlebotomy Collection / Unknown 10/28/2023 2:43 PM CASE FINISHER 10/28/2023 2:56 PM CASE FINISHER Glenn Deng MD URINE ORDERABLES Final Result Performing Organization Address [facility]/ZIP Co de Phone Number [facility] [address] [place] [address] * (ABNORMAL) URINALYSIS REFLEX IF INDICATED BY ABNORMAL RESULTS (10/28/2023 2:43 PM CASE FINISHER) SPECIFIC GRAVITY 1.005 1.003 - 1.030 10/28/2023 3:41 PM CASE FINISHER [facility] URINE PH 7.0 5.0 - 9.0 10/28/2023 3:41 PM CASE FINISHER [facility] WBC ESTERASE Negative Negative 10/28/2023 3:41 PM CASE FINISHER [facility] NITRITE Negative Negative 10/28/2023 3:41 PM CASE FINISHER [facility] PROTEIN, RANDOM URINE 30 mg/dL(A) Negative 10/28/2023 3:41 PM CASE FINISHER [facility] URINE GLUCOSE, QUAL Negative Negative 10/28/2023 3:41 PM CASE FINISHER [facility] URINE KETONES Negative Negative 10/28/2023 3:41 PM CASE FINISHER [facility] UROBILINOGEN Normal Normal mg/dL 10/28/2023 3:41 PM CASE FINISHER [facility] URINE BLOOD Negative Negative ottoniel/ul 10/28/2023 3:41 PM CASE FINISHER [facility] URINALYSIS COLOR Yellow 10/28/20 3:41 PM CASE FINISHER [facility] URINALYSIS CLARITY Clear 10/28/2023 3:41 PM CASE FINISHER [facility] WBC (Urine) 0-5 Negative, 0-5 /hpf 10/28/2023 3:41 PM CASE FINISHER [facility] URINE RBC'S 0-2 Negative, 0-2 /hpf 10/28/2023 3:41 PM CASE FINISHER [facility] EPITHELIAL CELLS Small amount /lpf 2022 3:41 PM CASE FINISHER [facility] BACTERIA, URINE Negative Negative /hpf 10/28/2023 3:41 PM CASE FINISHER [facility] Urine URINE SPECIMEN COLLECTION, CLEAN CATCH / Unknown Non-Phlebotomy Collection / Unknown 10/28/2023 2:43 PM CASE FINISHER 10/28/2023 2:57 PM [facility] Glenn Deng MD URINE ORDERABLES Final Result [facility] [address] [place] [address] * RENIN ACTIVITY, PLASMA, PRA (10/28/2023 2:43 PM [facility]) RENIN ACTIVITY 6.3 ng/mL/h 10/31/2023 3:48 PM [facility] Editorially Comment: REFERENCE VALUE (Peripheral vein specimen) Na-deplete, upright: Mean: 5.9 Range: 2.9-10.8 Na-replete, upright: Mean: 1.0 Range: < or =0.6-3.0 ADDITIONAL INFORMATION Testing performed by Liquid Chromatography-Tandem Mass Spectrometry (LC-MS/MS). This test was developed and its performance characteristics determined by [facility] in a manner consistent with CLIA requirements. This test has not been cleared or approved by the U.S. Food and Drug Administration. Test Performed by: [facility] - [facility] [address] [place] [address] Asset Protection Associate: Saeed Downs M.D. Ph.D.; CLIA# [id number] Blood Venipuncture / Unknown 10/28/2023 2:43 PM CASE FINISHER 10/28/2023 2:56 PM CASE FINISHER us Glenn Deng MD LAB SEND OUTS Final Result Performing Organization Address City/[facility]/ZIP Co de Phone Number [facility] * HEPATIC FUNCTION PANEL (10/28/2023 2:43 PM CASE FINISHER) T BILI 0.2 0.2 - 1.2 mg/dL 10/28/2023 3:22 PM CASE FINISHER [facility] BILIRUBIN,DIRECT 0.1 0.0 - 0.5 mg/dL 10/28/2023 3:22 PM CASE FINISHER [facility] ALKALINE PHOSPHATASE 113 40 - 150 U/L 10/28/2023 3:22 PM CASE FINISHER [facility] SGOT (AST) 13 5 - 34 U/L 10/28/2023 3:22 PM CASE FINISHER [facility] SGPT (ALT) 9 0 - 55 U/L 10/28/2023 3:22 PM CASE FINISHER [facility] TOTAL PROTEIN 7.9 6.3 - 8.2 g/dL 10/28/2023 3:22 PM CASE FINISHER [facility] ALBUMIN 4.2 3.5 - 5.0 g/dL 10/28/2023 3:22 PM CASE FINISHER [facility] Blood Venipuncture / Unknown 10/28/2023 2:43 PM CASE FINISHER 10/28/2023 2:57 PM CASE FINISHER us Glenn Deng MD CHEMISTRY ORDERABLES Final Res ult [facility] [address] [place] [address] * (ABNORMAL) IRON,TRANSFERN,CALC.TIBC,%SAT (10/28/2023 2:43 PM CASE FINISHER) Pathologist [facility] IRON 28 25 - 156 mcg/dL 10/28/2023 3:22 PM CASE FINISHER [facility] TRANSFERRIN 238 180 - 382 mg/dL 10/28/2023 3:22 PM CASE FINISHER [facility] TIBC, CALCULATED 298 265 - 497 mcg/dL 10/28/2023 3:22 PM CASE FINISHER [facility] % SATURATION * 9(L) 15 - 62 % 10/28/2023 3:22 PM CASE FINISHER [facility] Blood Venipuncture / Unknown 10/28/2023 2:43 PM CASE FINISHER 10/28/2023 2:57 PM CASE FINISHER Glenn Deng MD CHEMISTRY ORDERABLES Final Res ult Performing Organization Address [facility] Co de Phone Number [facility] [address] [place] [address] * URIC ACID (BLOOD ASSAY) (10/28/2023 2:43 PM CASE FINISHER) [facility] URIC ACID 5.8 2.5 - 6.2 mg/dL 10/28/2023 3:22 PM CASE FINISHER [facility] Blood Venipuncture / Unknown 10/28/2023 2:43 PM CASE FINISHER 10/28/2023 2:57 PM CASE FINISHER us Glenn Deng MD CHEMISTRY ORDERABLES Final Res ult Performing Organization Address City/[facility]/ZIP Co de Phone Number [facility] [address] [place] [address] * THYROXINE (T4) FREE (10/28/2023 2:43 PM CASE FINISHER) [facility] T4 FREE 1.0 0.7 - 1.9 ng/dL 10/28/2023 3:39 PM CASE FINISHER [facility] Blood Venipuncture / Unknown 10/28/2023 2:43 PM CASE FINISHER 10/28/2023 2:57 PM CASE FINISHER us Glenn Deng MD CHEMISTRY ORDERABLES Final Res ult Performing Organization Address City/[facility]/ZIP Co de Phone Number [facility] [address] [place] [address] * THYROID STIMULATING HORMONE (TSH) (10/28/2023 2:43 PM CASE FINISHER) [facility] TSH 0.604 0.300 - 5.000 mIU/L 10/28/2023 3:39 PM CASE FINISHER [facility] Blood Venipuncture / Unknown 10/28/2023 2:43 PM CASE FINISHER 10/28/2023 2:57 PM CASE FINISHER us Glnen Deng MD CHEMISTRY ORDERABLES Final Res ult Performing Organization Address [facility] Hospital/ZIP Co de Phone Number [facility] [address] [place] [address] * (ABNORMAL) PARATHYROID HORMONE PTH INTACT (10/28/2023 2:43 PM CASE FINISHER) [facility] PTH INTACT 143(H) 13 - 85 pg/mL 10/28/2023 3:24 PM CASE FINISHER [facility] Blood Venipuncture / Unknown 10/28/2023 2:43 PM CASE FINISHER 10/28/2023 2:57 PM CASE FINISHER us Glenn Deng MD CHEMISTRY ORDERABLES Final Res ult Performing Organization Address City/[facility]/ZIP Co de Phone Number [facility] [address] [place] [address] * (ABNORMAL) UR PROTEIN/CREATININE RATIO (10/28/2023 2:43 PM CASE FINISHER) UR PROTEIN RAND, QT 18.2 mg/dL 10/28/2023 3:38 PM CASE FINISHER [facility] Comment:No reference range h as been established. Consider Clinical Correlation. URINE CREATININE 59.3 mg/dL 10/28/2023 3:38 PM CASE FINISHER [facility] Comment:No reference range h as been established. Consider Clinical Correlation. URINE PROTEIN/CREATIN INE RATIO 0.31(H) <0.25 10/28/2023 3:38 PM CASE FINISHER [facility] Urine Non-Phlebotomy Collection / Unknown 10/28/2023 2:43 PM CASE FINISHER 10/28/2023 2:57 PM CASE FINISHER us Glenn Deng MD URINE ORDERABLES Final Result Performing Organization Address [facility]/ZIP Co de Phone Number [facility] [address] [place] [address] * MAGNESIUM (MG) (10/28/2023 2:43 PM CASE FINISHER) MAGNESIUM 2.1 1.6 - 2.6 mg/dL 10/28/2023 3:22 PM CASE FINISHER [facility] Blood Venipuncture / Unknown 10/28/2023 2:43 PM CASE FINISHER 10/28/2023 2:57 PM CASE FINISHER us Glenn Deng MD CHEMISTRY ORDERABLES Final Res ult [facility] [address] [place] [address] documented in this encounter Visit Diagnoses Diagnosis Chronic kidney disease (CKD) stage G3b/A1, moderately decreased glomerular filtration rate (GFR) between 30-44 mL/min/1.73 square meter and albuminuria creatinine ratio less than 30 mg/g- Primary Essential hypertension, malignant Hypopotassemia Anemia of chronic renal failure, unspecified CKD stage Renal hypertension Unspecified hypertensive kidney disease with chronic kidney disease stage I through stage IV, or unspecified documented in this encounter Care Teams Bundle Person Relationship Specialty Start Date End Date Oc Villarreal MD [address] [place] [address] PCP - General Family Medicine 10/28/23 Rebecca Love APRN, RECONCILIATION ANALYST #2 [facility] [address] [place] [address] Nurse Practitioner Advanced Practice Nurse 06/25/23 documented as of this encounter
--- NOTE | 2025-10-08 13:16 | ED.UPPEXIN ---
HPI - Extremity Injury (Upper) General Chief Complaint: Extremity Injury, Upper Stated Complaint: WC right knee and right hand Time Seen by Provider: 10/08/25 13:16 Source: patient Mode of arrival: ambulatory Limitations: no limitations History of Present Illness HPI narrative: 50 yo F presents with pain to R knee for 3 days. Was hit with floor cleaning machine at work. 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 Has been applying ice and thought swelling should be better by now. States R knee feels stiff, walking with limp. All systems reviewed and negative except as noted above. Related Data Home Medications ?Medication ?Instructions ?Recorded ?Confirmed ?Last Taken ?Type albuterol sulfate 90 mcg/actuation inhalation 10/08/25 Unknown History aerosol inhaler baclofen 10 mg tablet mg 10/08/25 Unknown History budesonide 0.5 mg/2 mL suspension mg 10/08/25 Unknown History for nebulization hydroxyzine HCl 10 mg tablet mg 10/08/25 Unknown History losartan 25 mg tablet mg 10/08/25 Unknown History metoprolol succinate 25 mg mg PO 10/08/25 Unknown History tablet,extended release 24 hr montelukast 10 mg tablet mg 10/08/25 Unknown History sertraline 25 mg tablet mg 10/08/25 Unknown History sertraline 50 mg tablet mg 10/08/25 Unknown History Allergies Allergy/AdvReac Type Severity Reaction Status Date / Time acetaminophen (From Allergy Severe Anaphylaxis Verified 10/08/25 13:05 Darvocet-N) propoxyphene (From Allergy Severe Anaphylaxis Verified 10/08/25 13:05 Darvocet-N) PMFSH Comments At time of signature, agree with nursing past medical, surgical, social and family history. There is no relevant family history pertinent to the presenting complaint. Exam Narrative: GENERAL: This is a well-nourished, well-developed patient, in no apparent distress. HEAD: normocephalic, atraumatic. EYES: PERRL. Sclera clear/white. Vision is grossly intact. EARS: External ears normal NOSE: External nose normal NECK: Neck supple, non-tender without lymphadenopathy, masses or thyromegaly. CARDIOVASCULAR: Regular rate and rhythm without murmurs, gallops, or rubs. RESPIRATORY: Clear to auscultation. Breath sounds equal bilaterally. No wheezes, rales, or rhonchi. SKIN: warm, Dry, intact with no suspicious lesions or rash, good texture and turgor. NEURO: awake, alert, and oriented to person, place and time. There were no obvious focal neurologic abnormalities. EXTREMITIES: Abrasion to right knee approximately 7 x 4 cm with surrounding erythema and warm on palpation. No fluctuance concerning for abscess. Tenderness to lateral aspect and posterior aspect. mild swelling noted. Course Course Level of Care: Express Care Visit Vital Signs Vital signs: Vital Signs Temperature 36.5 C 10/08/25 12:45 Pulse Rate 73 10/08/25 12:45 Respiratory Rate 16 10/08/25 12:45 Blood Pressure 151/80 H 10/08/25 12:45 Pulse Oximetry 100 10/08/25 12:45 Oxygen Delivery Room Air 10/08/25 12:45 Temperature 36.5 C 10/08/25 12:45 Pulse Rate 73 10/08/25 12:45 Respiratory Rate 16 10/08/25 12:45 Blood Pressure 151/80 H 10/08/25 12:45 Pulse Oximetry 100 10/08/25 12:45 Oxygen Delivery Room Air 10/08/25 12:45 Reviewed MDM - Extremity Injury (Upper) MDM Narrative Medical decision making narrative: x-ray right knee negative for fracture. will prescribe an antibiotic for infected right knee abrasion. Tai wrap placed. Recommend follow-up with primary care physician if right knee pain not improving. Imaging Data My impression: agree with radiologist Radiologist's impression: Examination: XR knee LT min 4V Clinical History: HIT IN PROX TIBIA, ANT AND POST PAIN Comparison: None Technique: 4 views right knee Findings/impression: 1. Probable enthesophyte or degenerative change anterior upper tibia but recommend correlation for point tenderness. 2. Otherwise no fracture, dislocation, or effusion right knee. Discharge Plan Discharge Clinical Impression: Contusion of knee, right, Abrasion of knee, right, infected Patient Disposition: Home Condition: Stable Instructions: Antibiotic Form, Knee Pain (ED) Additional Instructions: The x-ray of your right knee was negative for fracture. Take antibiotic as prescribed to treat infected abrasion. Take tylenol or ibuprofen every 6 to 8 hours as needed for pain. Follow up with your doctor in 1 week. Patient Language: Kazakh Prescriptions: New cephalexin 500 mg capsule 500 mg PO QID 7 Days Qty: 28 0RF No Action baclofen 10 mg tablet losartan 25 mg tablet sertraline 25 mg tablet budesonide 0.5 mg/2 mL suspension for nebulization montelukast 10 mg tablet metoprolol succinate 25 mg tablet extended release 24 hr PO albuterol sulfate 90 mcg/actuation HFA aerosol inhaler INHALATION hydroxyzine HCl 10 mg tablet sertraline 50 mg tablet Follow-up/Referrals: Phil,Oc Perez MD [Primary Care Provider] - 1 Week Stand Alone Forms: Work/School Release IP Time of Disposition: 14:14
== END 2025-10-08 14:32 | disposition home or self-care (01) ==
PROVIDERS: Emergency Provider Nurse Practitioner Family; PCP Family Medicine
DX: S80.01XA Contusion of right knee, initial encounter (principal); W31.89XA Contact with other specified machinery, initial encounter; Y99.0 Civilian activity done for income or pay; S80.211A Abrasion, right knee, initial encounter; L08.9 Local infection of the skin and subcutaneous tissue, unspecified; J45.909 Unspecified asthma, uncomplicated
CPT/HCPCS: 73564; 99203; G0463